=== PATIENT | female | born 1950 | race Caucasian/White ===

== ENCOUNTER → 2017-10-30 | Outpatient (CLI) | payer OTHER ==
[~2017-10-30] MED LIST: CALC500C70 PO; CHOL1000 PO; ESCI10TA17 PO; LORA-741 PO
--- NOTE | 2017-10-30 11:25 | DIAGNOSTIC IMAGING REPORT ---
CHEST 2 VIEWS ROUTINE CLINICAL HISTORY: 67 years-old Female presenting with preoperative assessment. TECHNIQUE: PA and lateral views of the chest were obtained. COMPARISON: 09/04/2008. FINDINGS: Cardiomediastinal silhouette normal. Mild hyperinflation. Lungs and pleural spaces clear. Osseous structures normal. Upper abdomen normal. IMPRESSION: 1. No acute cardiopulmonary disease. Electronically signed by: Gurmeet Paula M.D. 10/30/2017 11:24 AM Dictated Date/Time: 10/30/2017 11:23 AM
[2017-10-30 12:32] LABS: BASO % 0.3 %; BASO ABS # 0.01 K/uL (0-0.2); EOS % 1.3 %; EOS ABS # 0.05 K/uL (0-0.5); HEMATOCRIT 42.5 % (37-47); HEMOGLOBIN 13.6 g/dL (12.0-16.0); IG# 0.01 K/uL (0.00-0.02); LYMPH % 36.6 %; MEAN CELL VOLUME 89.9 fL (80-100); MEAN CORPUSCULAR HEMOGLOBIN 28.8 pg (25-34); MEAN PLATELET VOLUME 11.8 fL (7.4-10.4); MONO % 7.6 %; MONO ABS # 0.29 K/uL (0.11-0.59); NEUT % 53.9 %; NEUT ABS # 2.06 K/uL (1.4-6.5); PLATELET COUNT 186 K/uL (130-400); RED CELL DISTRIBUTION WIDTH CV 12.7 % (11.5-14.5); RED CELL DISTRIBUTION WIDTH SD 41.4 fL (36.4-46.3); WHITE BLOOD COUNT 3.82 K/uL (4.8-10.8)
[2017-10-30 12:46] LABS: HEMOGLOBIN A1C 5.7 % (4.5-5.6); INR 0.9 (0.9-1.1); PTT PATIENT 24.5 SECONDS (21.0-31.0)
[2017-10-30 12:56] LABS: ALBUMIN 3.7 gm/dl (3.4-5.0); BLOOD UREA NITROGEN 13 mg/dl (7-18); CALCIUM 9.1 mg/dl (8.5-10.1); CARBON DIOXIDE 29 mmol/L (21-32); GLUCOSE 89 mg/dl (70-99); SODIUM 139 mmol/L (136-145)
== END | disposition home or self-care (01) ==
LOC: C.CPL 12:00
DX: Z01.811 Encounter for preprocedural respiratory examination (principal); Z01.812 Encounter for preprocedural laboratory examination

== ENCOUNTER 2022-09-05 17:24 | Inpatient (IN) ==
[2022-09-05] MEDS ORDERED: SODIUM CHLORIDE 0.9% 1000ML 1,000 ML IV SCH ×2 (17:30→19:45)
--- NOTE | 2022-09-05 17:34 | Emergency Department Note ---
I had nothing to do with this note but have been added as a contributor by viewing it and now have to sign. Impression & Plan AMS (altered mental status) ADMIT ED Provider Note HPI: The patient is a 71-year-old female with history of anxiety/depression, who presents emergency department via EMS with altered mental status having been found down today in her home by her neighbor. Patient was reportedly last seen in her normal state of health 2 days ago. Neighbor became concerned because he had not heard from the patient and patient did not return phone calls and there fore he went to the house and found her unresponsive on the floor. EMS was contacted. Upon EMS arrival patient was responding to verbal stimuli but is unable to converse. She was noted to be hemodynamically stable in the field and protecting her airway. On arrival here to the ED the patient is with dry mucous membranes, she does respond to verbal stimuli but she is unable to have a conversation with me. She appears disheveled and is incontinent of urine with pressure ulcer noted to the sacrum. Patient is alert to verbal stimuli and is protecting her airway appropriately on my evaluation. ROS: - Per HPI Differential Diagnosis: Intracranial hemorrhage to include subarachnoid hemorrhage, intraparenchymal hemorrhage, hemorrhagic stroke, sepsis, rhabdomyolysis, acute kidney injury/dehydration, drug overdose to include benzodiazepines, opioids, prescription drugs to include SSRIs, amongst other potential pathologies. *Outpatient medications and allergy history reviewed. *Pertinent external medical records reviewed. PE: General: Alert to verbal stimuli, disheveled appearing HEENT: Normocephalic, trachea midline, dry mucous membrane Eyes: Extraocular eye movement is intact, no scleral erythema Pulmonary: Clear to auscultation bilaterally, no wheezing Cardio: Mildly tachycardic rate with regular rhythm GI: Abdomen is soft to palpation : No suprapubic tenderness MSK: No evidence of trauma or malformation of the extremities, no edema Skin: Erythema with some mild superficial skin peeling over the sacrum consistent with pressure ulcer Neuro: Alert to verbal stimuli, unable to converse/encephalopathic appearing, ambulates all extremities spontaneously Psychiatric: N/A, nonaggressive court monitor: (As interpreted by myself): - An order was placed for continuous cardiac monitoring - Patient was noted to be in sinus tachycardia with a rate of 110 EKG: (As interpreted by myself): Rate: 95 Rhythm: Normal sinus rhythm Intervals: Within normal limits ST changes: No ST elevation Time: 1729 Interventions provided in ED: -IV fluid bolus, IV vancomycin, IV Unasyn Medical Decision Making: Patient presented to the emergency department after having been found down at home today. She is in an altered/encephalopathic state on arrival. IVs were established and patient was taken to CT imaging urgently to evaluate for possible intracranial pathology. CT imaging of the head shows no acute process. Patient was IV fluid resuscitated with greater than 30 cc/kg of fluid and maintained on court monitor, presenting temperature is 34.0 C therefore placed also with warming blanket. Lab work shows no leukocytosis, hemoglobin is 17.2, platelet count is within normal limits, venous blood gas obtained shows evidence of acidosis with pH of 7.29, PCO2 is 65, CMP shows slight hyperkalemia at 5.3, BUN elevated at 37, creatinine is normal. Lactic acid is elevated at 4.3, magnesium slightly elevated at 2.8, bilirubin is normal, mild elevation in AST at 101 and ALT of 53, total CK level is elevated at 1848, procalcitonin also elevated at 1.77. Chest x-ray shows evidence of a possible right lower lobe aspiration pneumonia. Patient was covered with broad-spectrum antibiotics with vancomycin and Unasyn over concern for possible aspiration pneumonia. Urinalysis also shows concern for possible infection with pyuria and leukocyte esterase positive. Urine drug screen is positive for opioids and benzodiazepines. On my reassessment prior to admission the patient is becoming more alert, she is intermittently crying, she is able to nod her head yes or no to certain questions but cannot have a coherent conversation with me as of yet. Her who she is from later arrived at the bedside. States the patient has been "very depressed" recently. Given this I suspect that her altered mental status may be secondary to possible overdose. Per EMS report there was an empty bottle of paroxetine near the patient and a second bottle that was helpful. She has not displayed any arrhythmia on the monitor. Patient is stable currently on court monitor with stable blood pressure normal heart rate, she is saturating well on nasal cannula oxygen with respiratory rate in the 20s. She is more responsive than she was on arrival and she is maintaining protection of her airway without issue. I do not feel that i ntubation is warranted at this current time. I feel she is stable at this time for admission. Case was discussed with the on-call midlevel provider for [facility], Sandrine Kumar, and the patient was placed for admission in improved condition. Consultants: Hospitalist service, [facility] Disposition discussion held by myself with: Patient's at the bedside Diagnosis: 1. Altered mental status 2. Lactic acidosis 3. Rhabdomyolysis 4. Aspiration pneumonia 5. Hyperkalemia, mild 6. Uremia, acute 7. Possible drug overdose, benzodiazepine and opioid positive on urine drug screen 8. Elevated procalcitonin level 9. Sacral ulcer, superficial Disposition: ADMISSION Robb Duque DO Emergency Medicine Past Med/Surg History Medical History (Updated 09/05/22 @ 21:18 by HERSON Lee) Anxiety hx Arthritis of left hip Aspiration pneumonia Depression hx History of anesthesia reaction "I woke up during surgery and they had to put me back under" Mood disorder hx Overdose Sepsis Unresponsiveness Surgical History History of esophagogastroduodenoscopy (EGD) History of lumbar surgery lumbar #5, 1995 Hx of colonoscopy Hx of total hip arthroplasty Lt. Family History Other No significant family history Social History Smoking Status: Unknown if ever smoked Second Hand Exposure: No; Do You Dip or Chew Tobacco: No; Hx Alcohol Use: No Hx Substance Use: No Preferred Language: Georgian Communication Ability: Effective Visual Impairment: Limited Hearing Ability: Normal Press Service Reader Required: No Beliefs That Will Affect Care: None Current Living Situation: Alone Feels Safe at Home: Yes Assistive Devices: Glasses Allergies Allergies Allergy/AdvReac Type Severity Reaction Status Date / Time Quinolones Allergy Severe DIZZY Verified 09/26/21 06:25 ANXIETY TINGLING IN ARMS Home Meds Home Medications Medication Instructions Recorded Confirmed calcium 333 mg PO TID 09/03/21 09/26/21 cholecalciferol (vitamin D3) 50 50 mcg PO QAM 09/03/21 09/26/21 mcg (2,000 unit) tablet (Vitamin D3) paroxetine HCl 20 mg tablet 20 mg PO DAILY 09/05/22 09/05/22 Results & Data (ED) Vital Signs Vital Signs - 24 hr 09/05/22 17:30 09/05/22 17:30 09/05/22 17:30 Temperature 34.0 C L Temperature Source Rectal Pulse Rate 110 H Pulse Rate [Apical] 110 H Pulse Rate from SpO2 Sensor Pulse Rhythm Regular Pulse Rhythm [Apical] Regular Pulse Strength Normal Pulse Strength [Apical] Normal Respiratory Rate 30 H 32 H Respiratory Effort / Characteristics Labored Labored Respiratory Depth Normal Shallow Respiratory Pattern Tachypnea Tachypnea Blood Pressure 137/83 Blood Pressure [Right Arm] 137/83 Blood Pressure Mean 101 Blood Pressure Mean [Right Arm] 101 Blood Pressure Position [Right Arm] Pulse Oximetry 96 96 96 Oxygen Delivery Method Room Air Nasal Cannula Nasal Cannula Oxygen Flow Rate 4 4 Sepsis Recent Fever Within 48 Hours No Sepsis New/Unexplained Change in Mental Status Yes Sepsis Action Taken by Nursing Physician Notified End-Tidal CO2 09/05/22 17:35 09/05/22 17:35 09/05/22 17:59 Temperature Temperature Source Pulse Rate 100 H 102 H 102 H Pulse Rate [Apical] Pulse Rate from SpO2 Sensor 101 H 102 H Pulse Rhythm Pulse Rhythm [Apical] Pulse Strength Pulse Strength [Apical] Respiratory Rate 25 H 15 Respiratory Effort / Characteristics Respiratory Depth Respiratory Pattern Blood Pressure Blood Pressure [Right Arm] Blood Pressure Mean Blood Pressure Mean [Right Arm] Blood Pressure Position [Right Arm] Pulse Oximetry 96 100 Oxygen Delivery Method Nasal Cannula Nasal Cannula Oxygen Flow Rate 3 3 Sepsis Recent Fever Within 48 Hours Sepsis New/Unexplained Change in Mental Status Sepsis Action Taken by Nursing End-Tidal CO2 09/05/22 18:00 09/05/22 18:04 09/05/22 18:04 Temperature Temperature Source Pulse Rate 94 H 89 Pulse Rate [Apical] Pulse Rate from SpO2 Sensor 93 H 91 H Pulse Rhythm Pulse Rhythm [Apical] Pulse Strength Pulse Strength [Apical] Respiratory Rate 16 23 Respiratory Effort / Characteristics Respiratory Depth Respiratory Pattern Blood Pressure 130/77 Blood Pressure [Right Arm] Blood Pressure Mean 94 Blood Pressure Mean [Right Arm] Blood Pressure Position [Right Arm] Pulse Oximetry 98 98 Oxygen Delivery Method Oxygen Flow Rate 3 Sepsis Recent Fever Within 48 Hours Sepsis New/Unexplained Change in Mental Status Sepsis Action Taken by Nursing End-Tidal CO2 09/05/22 18:10 09/05/22 18:20 09/05/22 18:30 Temperature Temperature Source Pulse Rate 90 81 Pulse Rate [Apical] Pulse Rate from SpO2 Sensor 90 81 Pulse Rhythm Pulse Rhythm [Apical] Pulse Strength Pulse Strength [Apical] Respiratory Rate 16 12 Respiratory Effort / Characteristics Respiratory Depth Respiratory Pattern Blood Pressure 141/96 H Blood Pressure [Right Arm] Blood Pressure Mean 111 Blood Pressure Mean [Right Arm] Blood Pressure Position [Right Arm] Pulse Oximetry 97 97 Oxygen Delivery Method Oxygen Flow Rate Sepsis Recent Fever Within 48 Hours Sepsis New/Unexplained Change in Mental Status Sepsis Action Taken by Nursing End-Tidal CO2 09/05/22 18:30 09/05/22 18:57 09/05/22 19:00 Temperature 36.7 C Temperature Source Rectal Pulse Rate 94 H Pulse Rate [Apical] 102 H Pulse Rate from SpO2 Sensor 94 H Pulse Rhythm Pulse Rhythm [Apical] Pulse Strength Pulse Strength [Apical] Respiratory Rate 19 26 H Respiratory Effort / Characteristics Non-Labored Spontaneous Respiratory Depth Normal Respiratory Pattern Blood Pressure Blood Pressure [Right Arm] 141/96 H Blood Pressure Mean Blood Pressure Mean [Right Arm] 111 Blood Pressure Position [Right Arm] Sitting Pulse Oximetry 98 100 Oxygen Delivery Method Nasal Cannula Oxygen Flow Rate 3 Sepsis Recent Fever Within 48 Hours Sepsis New/Unexplained Change in Mental Status Sepsis Action Taken by Nursing End-Tidal CO2 09/05/22 20:10 09/05/22 19:00 09/05/22 19:10 Temperature Temperature Source Pulse Rate 103 H 94 H Pulse Rate [Apical] 78 Pulse Rate from SpO2 Sensor 103 H 94 H Pulse Rhythm Pulse Rhythm [Apical] Pulse Strength Pulse Strength [Apical] Respiratory Rate 14 22 34 H Respiratory Effort / Characteristics Non-Labored Spontaneous Respiratory Depth Shallow Respiratory Pattern Blood Pressure 133/96 133/96 Blood Pressure [Right Arm] 139/88 Blood Pressure Mean 108 108 Blood Pressure Mean [Right Arm] 105 Blood Pressure Position [Right Arm] Pulse Oximetry 99 100 99 Oxygen Delivery Method Nasal Cannula Nasal Cannula Oxygen Flow Rate 3 3 Sepsis Recent Fever Within 48 Hours Sepsis New/Unexplained Change in Mental Status Sepsis Action Taken by Nursing End-Tidal CO2 09/05/22 19:20 09/05/22 19:30 09/05/22 20:00 Temperature Temperature Source Pulse Rate 91 H 91 H 82 Pulse Rate [Apical] Pulse Rate from SpO2 Sensor 91 H 90 82 Pulse Rhythm Pulse Rhythm [Apical] Pulse Strength Pulse Strength [Apical] Respiratory Rate 26 H 19 21 Respiratory Effort / Characteristics Respiratory Depth Respiratory Pattern Blood Pressure 143/97 H 139/88 Blood Pressure [Right Arm] Blood Pressure Mean 112 105 Blood Pressure Mean [Right Arm] Blood Pressure Position [Right Arm] Pulse Oximetry 98 99 99 Oxygen Delivery Method Nasal Cannula Nasal Cannula Nasal Cannula Oxygen Flow Rate 3 3 3 Sepsis Recent Fever Within 48 Hours Sepsis New/Unexplained Change in Mental Status Sepsis Action Taken by Nursing End-Tidal CO2 09/05/22 20:36 09/05/22 20:30 09/05/22 21:15 Temperature Temperature Source Pulse Rate 111 H Pulse Rate [Apical] 96 H 99 H Pulse Rate from SpO2 Sensor 112 H Pulse Rhythm Pulse Rhythm [Apical] Regular Pulse Strength Pulse Strength [Apical] Normal Respiratory Rate 23 21 22 Respiratory Effort / Characteristics Non-Labored Spontaneous Non-Labored Spontaneous Respiratory Depth Shallow Shallow Respiratory Pattern Blood Pressure 170/98 H Blood Pressure [Right Arm] 170/98 H 167/104 H Blood Pressure Mean 122 Blood Pressure Mean [Right Arm] 122 125 Blood Pressure Position [Right Arm] Lying Pulse Oximetry 99 99 95 Oxygen Delivery Method Nasal Cannula Nasal Cannula Room Air Oxygen Flow Rate 3 3 Sepsis Recent Fever Within 48 Hours Sepsis New/Unexplained Change in Mental Status Sepsis Action Taken by Nursing End-Tidal CO2 09/05/22 21:19 09/05/22 21:00 09/05/22 21:10 Temperature Temperature Source Pulse Rate 91 H 107 H 107 H Pulse Rate [Apical] Pulse Rate from SpO2 Sensor 107 H 108 H Pulse Rhythm Pulse Rhythm [Apical] Pulse Strength Pulse Strength [Apical] Respiratory Rate 21 18 18 Respiratory Effort / Characteristics Respiratory Depth Respiratory Pattern Blood Pressure 144/124 H 167/104 H Blood Pressure [Right Arm] Blood Pressure Mean 130 125 Blood Pressure Mean [Right Arm] Blood Pressure Position [Right Arm] Pulse Oximetry 95 97 95 Oxygen Delivery Method Room Air Nasal Cannula Room Air Oxygen Flow Rate 3 Sepsis Recent Fever Within 48 Hours Sepsis New/Unexplained Change in Mental Status Sepsis Action Taken by Nursing End-Tidal CO2 31 Laboratory Data 09/05/22 17:28 09/05/22 17:28 Lab Results 09/05/22 09/05/22 09/05/22 Range/Units 17:28 17:28 17:28 WBC 10.44 (4.8-10.8) K/ul RBC 5.75 H (4.20-5.40) M/uL Hgb 17.2 H (12.0-16.0) g/dl Hct 52.0 H (37.0-47.0) % MCV 90.4 (80.0-100.0) fL MCH 29.9 (25.0-34.0) pg MCHC 33.1 (32.0-36.0) g/dL RDW Std Deviation 40.3 (36.4-46.3) fL RDW Coeff of Mary 12.3 (11.5-14.5) % Plt Count 168 (130-400) K/uL MPV 11.3 (9.4-12.4) fL Immature Gran % (Auto) 0.5 % Neut % (Auto) 89.3 % Lymph % (Auto) 3.9 % Alexander % (Auto) 6.0 % Eos % (Auto) 0.0 % Baso % (Auto) 0.3 % Neut # (Auto) 9.32 H (1.40-6.50) K/uL Lymph # (Auto) 0.41 L (1.2-3.4) K/uL Alexander # (Auto) 0.63 H (0.11-0.59) K/uL Eos # (Auto) 0.00 (0-0.50) K/uL Baso # (Auto) 0.03 (0-0.2) K/uL Immature Gran # (Auto) 0.05 (0.01-0.20) K/uL PT 11.3 (9.0-12.0) Seconds INR 1.0 (0.9-1.1) VBG pH (7.36-7.41) VBG pCO2 (38-50) mmHg VBG pO2 mmHg VBG HCO3 mmol/L VBG O2 Saturation % VBG Base Excess mEq/L Sodium 141 (136-145) mmol/L Potassium 5.3 H (3.5-5.1) mmol/L Chloride 101 (98-107) mmol/L Carbon Dioxide 32 (21-32) mmol/L Anion Gap 8 (3-11) BUN 37 H (6-23) mg/dl Creatinine 0.75 (0.6-1.2) mg/dl Est Cr Clr Drug Dosing 55.6 ml/min Est GFR ( Amer) 92.9 ml/min Est GFR (Non-Af Amer) 80.2 ml/min BUN/Creatinine Ratio 49.3 H (10-20) Glucose 162 H (70-99(Fasting)) mg/dl Lactate (0.4-2.0) mmol/L Calcium 10.3 (8.6-10.3) mg/dl Magnesium 2.8 H (1.7-2.4) mg/dl Total Bilirubin 0.7 (0.2-1.0) mg/dl Direct Bilirubin 0.1 (0-0.2) mg/dl AST 101 H (13-39) U/L ALT 53 H (7-52) U/L Alkaline Phosphatase 66 (34-104) U/L Total Creatine Kinase (26-192) U/L Troponin I High Sens 11.5 (0-14) pg/ml Total Protein 8.1 (6.0-8.3) gm/dl Albumin 4.4 (3.4-5.0) gm/dl Procalcitonin (0-0.5) ng/ml Urine Color Urine Appearance (Clear) Urine pH (4.5-7.5) Ur Specific [place] (1.000-1.030) Urine Protein (Negative) Urine Glucose (UA) (Negative) Urine Ketones (Negative) Urine Blood (Negative) Urine Nitrite (Negative) Urine Bilirubin (Negative) Urine Urobilinogen (Negative) Ur Leukocyte Esterase (Negative) Urine WBC (Auto) (0-5) /hpf Urine RBC (Auto) (0-4) /hpf U Hyaline Cast (Auto) (0-5) /lpf U Epithel Cells (Auto) (0-5) /lpf Urine Bacteria (Auto) (Negative) Salicylates (3.0-30) mg/dl Urine Opiates Screen (Neg) Ur Methadone, Qual (Neg) Acetaminophen (10-30) ug/ml Urine Barbiturates (Neg) Ur Phencyclidine (PCP) (Neg) U Amphetamin/Meth Scrn (Neg) MDMA (Ecstasy) Screen (Neg) U Benzodiazepines Scrn (Neg) Ur Cocaine Metabolite (Neg) U Marijuana (THC) Screen (Neg) Ethyl Alcohol mg/dL (<10.0) mg/dl SARS-CoV-2 (PCR) (Negative) Influenza Type A (PCR) (Neg) Influenza Type B (PCR) (Neg) RSV (RT-PCR) (Neg) 09/05/22 09/05/22 09/05/22 Range/Units 17:28 17:28 17:39 WBC (4.8-10.8) K/ul RBC (4.20-5.40) M/uL Hgb (12.0-16.0) g/dl Hct (37.0-47.0) % MCV (80.0-100.0) fL MCH (25.0-34.0) pg MCHC (32.0-36.0) g/dL RDW Std Deviation (36.4-46.3) fL RDW Coeff of Mary (11.5-14.5) % Plt Count (130-400) K/uL MPV (9.4-12.4) fL Immature Gran % (Auto) % Neut % (Auto) % Lymph % (Auto) % Alexander % (Auto) % Eos % (Auto) % Baso % (Auto) % Neut # (Auto) (1.40-6.50) K/uL Lymph # (Auto) (1.2-3.4) K/uL Alexander # (Auto) (0.11-0.59) K/uL Eos # (Auto) (0-0.50) K/uL Baso # (Auto) (0-0.2) K/uL Immature Gran # (Auto) (0.01-0.20) K/uL PT (9.0-12.0) Seconds INR (0.9-1.1) VBG pH (7.36-7.41) VBG pCO2 (38-50) mmHg VBG pO2 mmHg VBG HCO3 mmol/L VBG O2 Saturation % VBG Base Excess mEq/L Sodium (136-145) mmol/L Potassium (3.5-5.1) mmol/L Chloride (98-107) mmol/L Carbon Dioxide (21-32) mmol/L Anion Gap (3-11) BUN (6-23) mg/dl Creatinine (0.6-1.2) mg/dl Est Cr Clr Drug Dosing ml/min Est GFR ( Amer) ml/min Est GFR (Non-Af Amer) ml/min BUN/Creatinine Ratio (10-20) Glucose (70-99(Fasting)) mg/dl Lactate (0.4-2.0) mmol/L Calcium (8.6-10.3) mg/dl Magnesium (1.7-2.4) mg/dl Total Bilirubin (0.2-1.0) mg/dl Direct Bilirubin (0-0.2) mg/dl AST (13-39) U/L ALT (7-52) U/L Alkaline Phosphatase (34-104) U/L Total Creatine Kinase (26-192) U/L Troponin I High Sens (0-14) pg/ml Total Protein (6.0-8.3) gm/dl Albumin (3.4-5.0) gm/dl Procalcitonin 1.77 H (0-0.5) ng/ml Urine Color Dark Yellow Urine Appearance Cloudy A (Clear) Urine pH 5.5 (4.5-7.5) Ur Specific [place] 1.026 (1.000-1.030) Urine Protein 2+ H (Negative) Urine Glucose (UA) Trace H (Negative) Urine Ketones 1+ H (Negative) Urine Blood 3+ H (Negative) Urine Nitrite Negative (Negative) Urine Bilirubin Negative (Negative) Urine Urobilinogen Negative (Negative) Ur Leukocyte Esterase 1+ H (Negative) Urine WBC (Auto) >30 H (0-5) /hpf Urine RBC (Auto) 0-4 (0-4) /hpf U Hyaline Cast (Auto) 0 (0-5) /lpf U Epithel Cells (Auto) 0-5 (0-5) /lpf Urine Bacteria (Auto) 4+ H (Negative) Salicylates < 3.0 L (3.0-30) mg/dl Urine Opiates Screen (Neg) Ur Methadone, Qual (Neg) Acetaminophen < 3 L (10-30) ug/ml Urine Barbiturates (Neg) Ur Phencyclidine (PCP) (Neg) U Amphetamin/Meth Scrn (Neg) MDMA (Ecstasy) Screen (Neg) U Benzodiazepines Scrn (Neg) Ur Cocaine Metabolite (Neg) U Marijuana (THC) Screen (Neg) Ethyl Alcohol mg/dL (<10.0) mg/dl SARS-CoV-2 (PCR) (Negative) Influenza Type A (PCR) (Neg) Influenza Type B (PCR) (Neg) RSV (RT-PCR) (Neg) 09/05/22 09/05/22 09/05/22 Range/Units 17:39 18:06 18:17 WBC (4.8-10.8) K/ul RBC (4.20-5.40) M/uL Hgb (12.0-16.0) g/dl Hct (37.0-47.0) % MCV (80.0-100.0) fL MCH (25.0-34.0) pg MCHC (32.0-36.0) g/dL RDW Std Deviation (36.4-46.3) fL RDW Coeff of Mary (11.5-14.5) % Plt Count (130-400) K/uL MPV (9.4-12.4) fL Immature Gran % (Auto) % Neut % (Auto) % Lymph % (Auto) % Alexander % (Auto) % Eos % (Auto) % Baso % (Auto) % Neut # (Auto) (1.40-6.50) K/uL Lymph # (Auto) (1.2-3.4) K/uL Alexander # (Auto) (0.11-0.59) K/uL Eos # (Auto) (0-0.50) K/uL Baso # (Auto) (0-0.2) K/uL Immature Gran # (Auto) (0.01-0.20) K/uL PT (9.0-12.0) Seconds INR (0.9-1.1) VBG pH (7.36-7.41) VBG pCO2 (38-50) mmHg VBG pO2 mmHg VBG HCO3 mmol/L VBG O2 Saturation % VBG Base Excess mEq/L Sodium (136-145) mmol/L Potassium (3.5-5.1) mmol/L Chloride (98-107) mmol/L Carbon Dioxide (21-32) mmol/L Anion Gap (3-11) BUN (6-23) mg/dl Creatinine (0.6-1.2) mg/dl Est Cr Clr Drug Dosing ml/min Est GFR ( Amer) ml/min Est GFR (Non-Af Amer) ml/min BUN/Creatinine Ratio (10-20) Glucose (70-99(Fasting)) mg/dl Lactate 4.3 H* (0.4-2.0) mmol/L Calcium (8.6-10.3) mg/dl Magnesium (1.7-2.4) mg/dl Total Bilirubin (0.2-1.0) mg/dl Direct Bilirubin (0-0.2) mg/dl AST (13-39) U/L ALT (7-52) U/L Alkaline Phosphatase (34-104) U/L Total Creatine Kinase (26-192) U/L Troponin I High Sens (0-14) pg/ml Total Protein (6.0-8.3) gm/dl Albumin (3.4-5.0) gm/dl Procalcitonin (0-0.5) ng/ml Urine Color Urine Appearance (Clear) Urine pH (4.5-7.5) Ur Specific [place] (1.000-1.030) Urine Protein (Negative) Urine Glucose (UA) (Negative) Urine Ketones (Negative) Urine Blood (Negative) Urine Nitrite (Negative) Urine Bilirubin (Negative) Urine Urobilinogen (Negative) Ur Leukocyte Esterase (Negative) Urine WBC (Auto) (0-5) /hpf Urine RBC (Auto) (0-4) /hpf U Hyaline Cast (Auto) (0-5) /lpf U Epithel Cells (Auto) (0-5) /lpf Urine Bacteria (Auto) (Negative) Salicylates (3.0-30) mg/dl Urine Opiates Screen Pos H (Neg) Ur Methadone, Qual Neg (Neg) Acetaminophen (10-30) ug/ml Urine Barbiturates Neg (Neg) Ur Phencyclidine (PCP) Neg (Neg) U Amphetamin/Meth Scrn Neg (Neg) MDMA (Ecstasy) Screen Neg (Neg) U Benzodiazepines Scrn Pos H (Neg) Ur Cocaine Metabolite Neg (Neg) U Marijuana (THC) Screen Neg (Neg) Ethyl Alcohol mg/dL (<10.0) mg/dl SARS-CoV-2 (PCR) NEGATIVE (Negative) Influenza Type A (PCR) Negative (Neg) Influenza Type B (PCR) Negative (Neg) RSV (RT-PCR) Negative (Neg) 09/05/22 09/05/22 09/05/22 Range/Units 18:17 18:17 18:17 WBC (4.8-10.8) K/ul RBC (4.20-5.40) M/uL Hgb (12.0-16.0) g/dl Hct (37.0-47.0) % MCV (80.0-100.0) fL MCH (25.0-34.0) pg MCHC (32.0-36.0) g/dL RDW Std Deviation (36.4-46.3) fL RDW Coeff of Mary (11.5-14.5) % Plt Count (130-400) K/uL MPV (9.4-12.4) fL Immature Gran % (Auto) % Neut % (Auto) % Lymph % (Auto) % Alexander % (Auto) % Eos % (Auto) % Baso % (Auto) % Neut # (Auto) (1.40-6.50) K/uL Lymph # (Auto) (1.2-3.4) K/uL Alexander # (Auto) (0.11-0.59) K/uL Eos # (Auto) (0-0.50) K/uL Baso # (Auto) (0-0.2) K/uL Immature Gran # (Auto) (0.01-0.20) K/uL PT (9.0-12.0) Seconds INR (0.9-1.1) VBG pH 7.29 L (7.36-7.41) VBG pCO2 65 H (38-50) mmHg VBG pO2 38 mmHg VBG HCO3 31 mmol/L VBG O2 Saturation 63.5 % VBG Base Excess 2.8 mEq/L Sodium (136-145) mmol/L Potassium (3.5-5.1) mmol/L Chloride (98-107) mmol/L Carbon Dioxide (21-32) mmol/L Anion Gap (3-11) BUN (6-23) mg/dl Creatinine (0.6-1.2) mg/dl Est Cr Clr Drug Dosing ml/min Est GFR ( Amer) ml/min Est GFR (Non-Af Amer) ml/min BUN/Creatinine Ratio (10-20) Glucose (70-99(Fasting)) mg/dl Lactate (0.4-2.0) mmol/L Calcium (8.6-10.3) mg/dl Magnesium (1.7-2.4) mg/dl Total Bilirubin (0.2-1.0) mg/dl Direct Bilirubin (0-0.2) mg/dl AST (13-39) U/L ALT (7-52) U/L Alkaline Phosphatase (34-104) U/L Total Creatine Kinase 1848 H (26-192) U/L Troponin I High Sens (0-14) pg/ml Total Protein (6.0-8.3) gm/dl Albumin (3.4-5.0) gm/dl Procalcitonin (0-0.5) ng/ml Urine Color Urine Appearance (Clear) Urine pH (4.5-7.5) Ur Specific [place] (1.000-1.030) Urine Protein (Negative) Urine Glucose (UA) (Negative) Urine Ketones (Negative) Urine Blood (Negative) Urine Nitrite (Negative) Urine Bilirubin (Negative) Urine Urobilinogen (Negative) Ur Leukocyte Esterase (Negative) Urine WBC (Auto) (0-5) /hpf Urine RBC (Auto) (0-4) /hpf U Hyaline Cast (Auto) (0-5) /lpf U Epithel Cells (Auto) (0-5) /lpf Urine Bacteria (Auto) (Negative) Salicylates (3.0-30) mg/dl Urine Opiates Screen (Neg) Ur Methadone, Qual (Neg) Acetaminophen (10-30) ug/ml Urine Barbiturates (Neg) Ur Phencyclidine (PCP) (Neg) U Amphetamin/Meth Scrn (Neg) MDMA (Ecstasy) Screen (Neg) U Benzodiazepines Scrn (Neg) Ur Cocaine Metabolite (Neg) U Marijuana (THC) Screen (Neg) Ethyl Alcohol mg/dL < 10.0 (<10.0) mg/dl SARS-CoV-2 (PCR) (Negative) Influenza Type A (PCR) (Neg) Influenza Type B (PCR) (Neg) RSV (RT-PCR) (Neg) 09/05/22 09/05/22 09/05/22 Range/Units 20:20 21:11 21:11 WBC (4.8-10.8) K/ul RBC (4.20-5.40) M/uL Hgb (12.0-16.0) g/dl Hct (37.0-47.0) % MCV (80.0-100.0) fL MCH (25.0-34.0) pg MCHC (32.0-36.0) g/dL RDW Std Deviation (36.4-46.3) fL RDW Coeff of Mary (11.5-14.5) % Plt Count (130-400) K/uL MPV (9.4-12.4) fL Immature Gran % (Auto) % Neut % (Auto) % Lymph % (Auto) % Alexander % (Auto) % Eos % (Auto) % Baso % (Auto) % Neut # (Auto) (1.40-6.50) K/uL Lymph # (Auto) (1.2-3.4) K/uL Alexander # (Auto) (0.11-0.59) K/uL Eos # (Auto) (0-0.50) K/uL Baso # (Auto) (0-0.2) K/uL Immature Gran # (Auto) (0.01-0.20) K/uL PT (9.0-12.0) Seconds INR (0.9-1.1) VBG pH 7.34 L (7.36-7.41) VBG pCO2 52 H (38-50) mmHg VBG pO2 29 mmHg VBG HCO3 28 mmol/L VBG O2 Saturation 62.6 % VBG Base Excess 1.4 mEq/L Sodium (136-145) mmol/L Potassium (3.5-5.1) mmol/L Chloride (98-107) mmol/L Carbon Dioxide (21-32) mmol/L Anion Gap (3-11) BUN (6-23) mg/dl Creatinine (0.6-1.2) mg/dl Est Cr Clr Drug Dosing ml/min Est GFR ( Amer) ml/min Est GFR (Non-Af Amer) ml/min BUN/Creatinine Ratio (10-20) Glucose (70-99(Fasting)) mg/dl Lactate 3.4 H* 2.3 H* (0.4-2.0) mmol/L Calcium (8.6-10.3) mg/dl Magnesium (1.7-2.4) mg/dl Total Bilirubin (0.2-1.0) mg/dl Direct Bilirubin (0-0.2) mg/dl AST (13-39) U/L ALT (7-52) U/L Alkaline Phosphatase (34-104) U/L Total Creatine Kinase (26-192) U/L Troponin I High Sens (0-14) pg/ml Total Protein (6.0-8.3) gm/dl Albumin (3.4-5.0) gm/dl Procalcitonin (0-0.5) ng/ml Urine Color Urine Appearance (Clear) Urine pH (4.5-7.5) Ur Specific [place] (1.000-1.030) Urine Protein (Negative) Urine Glucose (UA) (Negative) Urine Ketones (Negative) Urine Blood (Negative) Urine Nitrite (Negative) Urine Bilirubin (Negative) Urine Urobilinogen (Negative) Ur Leukocyte Esterase (Negative) Urine WBC (Auto) (0-5) /hpf Urine RBC (Auto) (0-4) /hpf U Hyaline Cast (Auto) (0-5) /lpf U Epithel Cells (Auto) (0-5) /lpf Urine Bacteria (Auto) (Negative) Salicylates (3.0-30) mg/dl Urine Opiates Screen (Neg) Ur Methadone, Qual (Neg) Acetaminophen (10-30) ug/ml Urine Barbiturates (Neg) Ur Phencyclidine (PCP) (Neg) U Amphetamin/Meth Scrn (Neg) MDMA (Ecstasy) Screen (Neg) U Benzodiazepines Scrn (Neg) Ur Cocaine Metabolite (Neg) U Marijuana (THC) Screen (Neg) Ethyl Alcohol mg/dL (<10.0) mg/dl SARS-CoV-2 (PCR) (Negative) Influenza Type A (PCR) (Neg) Influenza Type B (PCR) (Neg) RSV (RT-PCR) (Neg) Administered Medications Sodium Chloride (Nss 1000ml) 1,000 mls @ 50 mls/hr IV .Q20H ERMIAS Stop: 09/07/22 11:44 Last Admin: 09/05/22 20:41 Dose: 50 mls/hr Documented By: JE Discontinued Medications Sodium Chloride (Nss 1000ml) 1,000 mls @ 999 mls/hr IV .Q1H1M ERMIAS Stop: 09/05/22 18:30 Last Infusion: 09/05/22 18:31 Dose: 0 mls/hr Documented By: DLTyler Admin: 09/05/22 17:48 Dose: 999 mls/hr Documented By: RSL Vancomycin HCl 1,000 mg/ (Sodium Chloride) 520 mls @ 200 mls/hr IV NOW ONE Stop: 09/05/22 20:28 Last Admin: 09/05/22 18:37 Dose: 200 mls/hr Documented By: [place] Ampicillin Sodium/Sulbactam Sodium 3,000 mg/ Sodium Chloride 108 mls @ 200 mls/hr IV NOW STA; Protocol Stop: 09/05/22 18:25 Last Infusion: 09/05/22 18:31 Dose: 0 mls/hr Documented By: Admin: 09/05/22 18:19 Dose: 200 mls/hr Documented By: [place] Sodium Chloride (Nss 1000ml) 1,000 mls @ 999 mls/hr IV .Q1H1M ONE Stop: 09/05/22 18:54 Last Infusion: 09/05/22 20:40 Dose: 0 mls/hr Documented By: Admin: 09/05/22 18:07 Dose: 999 mls/hr Documented By: [place] Naloxone HCl (Naloxone Hcl 0.4 Mg/1 Ml Vial/Carp) Confirm Administered Dose 0.4 mg .ROUTE .STK-MED ONE Stop: 09/05/22 18:29 Last Admin: 09/05/22 18:31 Dose: Not Given Documented By: [place] Naloxone HCl (Naloxone Hcl 0.4 Mg/1 Ml Vial/Carp) 0.4 mg IV NOW STA Stop: 09/05/22 18:29 Last Admin: 09/05/22 18:30 Dose: 0.4 mg Documented By: [place] Naloxone HCl (Naloxone Hcl 0.4 Mg/1 Ml Vial/Carp) 0.4 mg IV NOW STA Stop: 09/05/22 20:19 Last Admin: 09/05/22 20:23 Dose: 0.4 mg Documented By: KARLA Imaging Data Radiologist's Impression: Chest X-Ray 09/05/22 17:30 SINGLE VIEW CHEST CLINICAL HISTORY: Sepsis. FINDINGS: An AP, portable, upright chest radiograph is compared to study dated 817. The cardiomediastinal silhouette is unremarkable noting atherosclerotic calcification of the thoracic aorta. Airspace consolidation is seen at the right lung base. No large pleural effusion or pneumothorax is identified. The skeletal structures are osteopenic. The bony thorax is grossly intact. IMPRESSION: Airspace consolidation at the right lung base is typical for pneumonia/aspiration pneumonitis. Clinical correlation will be required and radiographic follow-up to resolution is recommended. ACT 112: Negative or not required by law. Electronically signed by: Kingsley Cabral M.D. 09/05/2022 5:[address] 09/05/22 17:31 CT SCAN OF THE BRAIN WITHOUT IV CONTRAST CLINICAL HISTORY: Change in mental status. COMPARISON STUDY: CT of the brain dated 09/04/2008. TECHNIQUE: Unenhanced axial CT scan of the brain is performed from the vertex to the skull base. A dose lowering technique was utilized adhering to the principles of ALARA. CT DOSE: 703.85 mGy.cm FINDINGS: Brain parenchyma: There is age-related involutional change noting mild subcor tical and periventricular microangiopathic disease. There is no hemorrhage, mass effect, or evidence of acute territorial ischemia by CT criteria. Palafox-white matter differentiation is preserved. No extra-axial fluid collection is seen. Ventricles, sulci, cisterns: Prominent secondary to involutional change. Intracranial vasculature: There is atherosclerotic calcification of the cavernous carotid arteries. Calvarium: Unremarkable. Sinuses and mastoids: The visualized paranasal sinuses are clear. The mastoid air cells are well pneumatized. Orbits: The bony orbits are grossly intact. There is a left ocular lens implant. IMPRESSION: There is no hemorrhage, mass effect, or evidence of acute territorial ischemia by CT criteria. ACT 112: Negative or not required by law. Electronically signed by: Kingsley Cabral M.D. 09/05/2022 6:00 PM Discharge Plan Visit Data Chief Complaint: Unresponsive Stated Complaint: UNRESPONSIVE ED Provider: Robb Duque Discharge Problem: AMS (altered mental status) Forms [facility] Prescriptions Prescriptions: No Action paroxetine HCl 20 mg tablet 20 mg PO DAILY Rx Instructions: [facility] pharmacist verified cholecalciferol (vitamin D3) [Vitamin D3] 50 mcg (2,000 unit) Tablet 50 mcg PO QAM Rx Instructions: [facility] pharmacist unable to verify calcium 333 mg PO TID Rx Instructions: [facility] pharmacist unable to verify Referrals Referrals: Abad Thomas MD [Primary Care Provider] -
--- NOTE | 2022-09-05 17:44 | XRay Report ---
SINGLE VIEW CHEST CLINICAL HISTORY: Sepsis. FINDINGS: An AP, portable, upright chest radiograph is compared to study dated 817. The cardiomediast inal silhouette is unremarkable noting atherosclerotic calcification of the thoracic aorta. Airspace consolidation is seen at the right lung base. No large pleural effusion or pneumothorax is identified . The skeletal structures are osteopenic. The bony thorax is grossly intact. IMPRESSION: Airspace consolidation at the right lung base is typical for pneumonia/aspiration pneumon itis. Clinical correlation will be required and radiographic follow-up to resolution is recommended. ACT 112: Negative or not required by law. Electronically signed by: Kingsley Cabral M.D. 09/05/2022 5:43 PM
[2022-09-05] MEDS ORDERED: VANCOMYCIN CONSULT ACTIVE PRN (17:53)
[2022-09-05] MEDS ORDERED: AMPICILLIN/SULBACTAM SOD 3,000 MG in 0.9 % SODIUM CHLORIDE 100 ML IV STA (17:53)
[2022-09-05] MEDS ORDERED: VANCOMYCIN HCL 1,000 MG in SODIUM CHLORIDE 0.9% 500 ML IV ONE (17:53)
[2022-09-05] MEDS ORDERED: SODIUM CHLORIDE 0.9% 1000ML 1,000 ML IV ONE (17:54)
--- NOTE | 2022-09-05 18:02 | CT Scan Report ---
CT SCAN OF THE BRAIN WITHOUT IV CONTRAST CLINICAL HISTORY: Change in mental status. COMPARISON STUDY: CT of the brain dated 09/04/2008. TECHNIQUE: Unenhanced axial CT scan of the brain is performed from the vertex to the skull base. A do se lowering technique was utilized adhering to the principles of ALARA. CT DOSE: 703.85 mGy.cm FINDINGS: Brain parenchyma: There is age-related involutional change noting mild subcortical and periventricula r microangiopathic disease. There is no hemorrhage, mass effect, or evidence of acute territorial isc hemia by CT criteria. Palafox-white matter differentiation is preserved. No extra-axial fluid collection is seen. Ventricles, sulci, cisterns: Prominent secondary to involutional change. Intracranial vasculature: There is atherosclerotic calcification of the cavernous carotid arteries. Calvarium: Unremarkable. Sinuses and mastoids: The visualized paranasal sinuses are clear. The mastoid air cells are well pneu matized. Orbits: The bony orbits are grossly intact. There is a left ocular lens implant. IMPRESSION: There is no hemorrhage, mass effect, or evidence of acute territorial ischemia by CT romy graf. ACT 112: Negative or not required by law. Electronically signed by: Kingsley Cabral M.D. 09/05/2022 6:00 PM
[2022-09-05 18:04] LABS: Basophils # (auto) 0.03 K/uL (0-0.2); Basophils % (auto) 0.3 %; Hemoglobin 17.2 g/dl (12.0-16.0); Immature Granulocytes # (auto) 0.05 K/uL (0.01-0.20); Immature Granulocytes % (auto) 0.5 %; Lymphocytes # (auto) 0.41 K/uL (1.2-3.4); Lymphocytes % (auto) 3.9 %; Mean Corpuscular Hemoglobin 29.9 pg (25.0-34.0); Mean Corpuscular Hgb Conc 33.1 g/dL (32.0-36.0); Mean Corpuscular Volume 90.4 fL (80.0-100.0); Mean Platelet Volume 11.3 fL (9.4-12.4); Monocytes # (auto) 0.63 K/uL (0.11-0.59); Neutrophils # (auto) 9.32 K/uL (1.40-6.50); Neutrophils % (auto) 89.3 %; Platelet Count 168 K/uL (130-400); RDW Coefficient of Variation 12.3 % (11.5-14.5); RDW Standard Deviation 40.3 fL (36.4-46.3); Red Blood Count 5.75 M/uL (4.20-5.40); White Blood Count 10.44 K/ul (4.8-10.8)
[2022-09-05 18:06] LABS: Appearance Urine Cloudy (Clear); Bacteria Urine Automated 4+ (Negative); Bilirubin Urine Negative (Negative); Blood Urine 3+ (Negative); Color Urine Dark Yellow; Epithelial Cell Urine Auto 0-5 /lpf (0-5); Glucose Urine UA Trace (Negative); Ketones Urine 1+ (Negative); Leukocyte Esterase Urine 1+ (Negative); Nitrite Urine Negative (Negative); Protein Urine 2+ (Negative); RBC Urine Automated 0-4 /hpf (0-4); Specific Gravity Urine 1.026 (1.000-1.030); Urobilinogen Urine Negative (Negative); WBC Urine Automated >30 /hpf (0-5); pH Urine 5.5 (4.5-7.5)
[2022-09-05 18:12] LABS: Albumin Level 4.4 gm/dl (3.4-5.0); BUN Creatinine Ratio 49.3 (10-20); Bilirubin Direct 0.1 mg/dl (0-0.2); Bilirubin,Total 0.7 mg/dl (0.2-1.0); Calcium 10.3 mg/dl (8.6-10.3); Creatinine Clr Calc Pharmacy 55.6 ml/min; Est GFR (African American) 92.9 ml/min; Est GFR (Non-African American) 80.2 ml/min; Magnesium 2.8 mg/dl (1.7-2.4); Potassium 5.3 mmol/L (3.5-5.1); Total Protein 8.1 gm/dl (6.0-8.3)
[2022-09-05 18:15] LABS: Acetaminophen < 3 ug/ml (10-30); Salicylate < 3.0 mg/dl (3.0-30)
[2022-09-05 18:19] LABS: Troponin I High Sensitivity 11.5 pg/ml (0-14)
[2022-09-05] MEDS ORDERED: NALOXONE HCL 0.4 MG/1 ML VIAL/CARP ONE (18:28)
[2022-09-05] MEDS ORDERED: NALOXONE HCL 0.4 MG/1 ML VIAL/CARP IV STA ×2 (18:28→20:18)
[2022-09-05 18:31] LABS: Prothrombin Time 11.3 Seconds (9.0-12.0)
[2022-09-05 18:32] LABS: Cast Urine Automated 0 /lpf (0-5)
[2022-09-05 18:45] LABS: Base Excess VBG 2.8 mEq/L; HCO3 VBG 31 mmol/L; Oxygen Saturation VBG 63.5 %; PCO2 VBG 65 mmHg (38-50); PO2 VBG 38 mmHg; pH VBG 7.29 (7.36-7.41)
[2022-09-05] MEDS ORDERED: POLYETHYLENE (MIRALAX) 17 GM PACK PO PRN (19:00)
[2022-09-05] MEDS ORDERED: ONDANSETRON INJ 2 MG/ML 2 ML VIAL IV PRN (19:00)
[2022-09-05] MEDS ORDERED: ALUMINUM/MAGNESIUM SUSP 30 ML UDC PO PRN (19:00)
[2022-09-05] MEDS ORDERED: MAGNESIUM HYDROXIDE SUSP 30 ML UDC PO PRN (19:00)
[2022-09-05 19:03] LABS: Influenza A virus by PCR Negative (Neg); Influenza B virus by PCR Negative (Neg); RSV by PCR Negative (Neg); SARS CoV2 RNA(COVID-19) Ceph NEGATIVE (Negative)
[2022-09-05 19:05] LABS: Amphetamines+Metham, Urine Neg (Neg); Barbiturates, Urine Neg (Neg); Benzodiazepine, Urine Pos (Neg); Cocaine, Urine Neg (Neg); MDMA (Ecstacy), Urine Neg (Neg); Methadone, Urine Neg (Neg); Opiate, Urine Pos (Neg); Phencyclidine, Urine Neg (Neg)
--- NOTE | 2022-09-05 19:06 | History & Physical Report ---
Date of Service September 05, 2022 Assessment & Plan (1) Overdose: (2) Unresponsiveness: (3) Sepsis: (4) Depression: (5) Aspiration pneumonia: Plan 71 year old with what appears to be intentional overdose. Found down; last week known 48 hours prior. Severe history of depression with known SI. H/O voluntary inpatient stay at the [facility] x3 days. UDS + for opioids and Benzos. Whole bottle of SSRI found next to her. Head CT negative. Intermittent somnolence. CXR suggestive of Aspiration PNA; will cover with Vanc + Unasyn. Lactate initially 4.8; will trend; suspect due to dehydration secondary to overdose. Narcan x2; suspect may need a Narcan infusion; discussed with Sumit Christie and will admit to ICU overnight. Lactic Acidosis secondary to overdose: Unresponsiveness: Respiratory Acidosis: Admit to PCU UDS + for Opioids and Benzos VBG 7.29, CO2 65, HCO3 31; received Narcan x2 Narcan x2 administered in ED 2L NSB given in ED; 0.9 NS @ 50mL/ maint fluids x2 bags; reassess mentation in AM Lactate 4.8; will trend CXR concerning for aspiration PNA; Vanc + Unasyn ordered in ED; continue until cultures return Blood Cultures ordered Sputum Culture ordered Suicide precautions NPO for now; safe tray when cleared to eat Confirmed code status with ; remain a full code and ok for intubation for airway protection or for hypercapnia; discussed with . Psych Consult placed Aspiration PNA: Secondary to Overdose CXR suggestive of aspiration PNA. Procalcitonin 1.77; recheck in AM Vanco + Unasyn started in ED; will continue for now NPO CXR in AM Depression: Has been voluntarily admitted to the [facility] 3-4 years ago for severe depression Takes Paroxetine; hold Bottle was found empty next to patient UDS + for Opioids and Benzos Psych consult placed Disposition: PCP: Dr. Thomas Code Status: Full Code VTE Prophylaxis: Lovenox SQ I spent a total of 88 minutes coordinating, documenting, and providing care for this patient excluding time spent in the performance of separately billed services. All of the aforementioned completed while collaborating with the assigned attending physician for a full treatment plan. Please see their addendum for further details. History of Present Illness Chief Complaint: unresponsiveness Primary Care Provider: Abad Thomas MD 71-year-old brought to the [facility] via EMS after she was found down on the floor by a neighbor today. Patient was not returning neighbors call so he went to check on her and she was last known well 2 days ago on Thursday. She was found to be dehydrated with dry mucous membranes, disheveled, incontinent of urine with a pressure ulcer on her sacrum. Patient has been intermittently responsive to verbal stimuli since. The bottle of medication found next to the patient that was empty; prescription for SSRI. Narcan given in ED x1 with some response. Patient did open her eyes voluntarily and respond to simple questions. Over time, she did become more lethargic and a second dose of Narcan was ordered. stated that she told him she was buying narcotics, but he is unsure where she was getting them. She has made comments to him that she does not want to be here anymore. She does care for a cat at home. Patient was given Narcan in the ED without initial response; however patient then started crying. Patient , Demarcus, at bedside and indicated that pt has struggled with severe depression over the past few years and had a voluntary inpatient stay at the [facility] 3-4 years ago. patient lactate 4.8 on admission, procalcitonin 1.77, VBG respiratory acidosis with hypercapnia, Initial Troponin elevated. Do not suspect ACS; will trend accordingly, some ketonuria noted. Pt does not use tobacco, alcohol, or recreational drugs, per . 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 Head CT in ED negative for ICH, SDH, midline shift. Chest x-ray suggestive of aspiration pneumonia; started on Vancomycin and Unasyn in ED. Confirmed code status with ; remain a full code and ok for intubation for suspected airway protection or for hypercapnia; discussed with . Patient will be admitted to the ICU for further evaluation and management. Please see A/P for further details. Allergies Allergy/AdvReac Type Severity Reaction Status Date / Time Quinolones Allergy Severe DIZZY Verified 09/26/21 06:25 ANXIETY TINGLING IN ARMS Home Medications Medication Instructions Recorded Confirmed Type calcium 333 mg PO TID 09/03/21 09/26/21 History cholecalciferol (vitamin D3) 50 50 mcg PO QAM 09/03/21 09/26/21 History mcg (2,000 unit) tablet (Vitamin D3) paroxetine HCl 20 mg tablet 20 mg PO DAILY 09/05/22 09/05/22 History Past Med/Surg History Medical History (Updated 09/05/22 @ 21:54 by HERSON Rose) Anxiety hx Arthritis of left hip Aspiration pneumonia Depression hx History of anesthesia reaction "I woke up during surgery and they had to put me back under" Mood disorder hx Overdose Sepsis Unresponsiveness Surgical History History of esophagogastroduodenoscopy (EGD) History of lumbar surgery lumbar #5, 1995 Hx of colonoscopy Hx of total hip arthroplasty Lt. 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 On RA. shallow to apneic breaths GI: Abdomen S/NT/ND, Ax4 bowel sounds, (-) CVA tenderness Musculoskeletal: not able to assess due to somnolence Skin: Stage II coccyx pressure ulcer. Psych: unresponsive intermittently Results & Data Results & Data Vital Signs (Past 12 Hours) Vital Signs Temp Pulse Pulse Resp BP BP Pulse Ox 09/05/22 19:00 102 H 26 H 141/96 H 100 09/05/22 18:57 36.7 C 09/05/22 18:30 94 H 19 98 09/05/22 18:30 141/96 H 09/05/22 18:20 81 12 97 09/05/22 18:10 90 16 97 09/05/22 18:04 89 23 98 09/05/22 18:04 130/77 09/05/22 18:00 94 H 16 98 09/05/22 17:59 102 H 15 100 09/05/22 17:35 102 H 25 H 96 09/05/22 17:35 100 H 09/05/22 17:30 96 09/05/22 17:30 110 H 32 H 137/83 96 09/05/22 17:30 34.0 C L 110 H 30 H 137/83 96 O2 Del Method O2 Flow Rate 09/05/22 19:00 Nasal Cannula 3 09/05/22 18:57 09/05/22 18:30 09/05/22 18:30 09/05/22 18:20 09/05/22 18:10 09/05/22 18:04 3 09/05/22 18:04 09/05/22 18:00 09/05/22 17:59 Nasal Cannula 3 09/05/22 17:35 Nasal Cannula 3 09/05/22 17:35 09/05/22 17:30 Nasal Cannula 4 09/05/22 17:30 Nasal Cannula 4 09/05/22 17:30 Room Air Laboratory Results Short CBC 09/05/22 Range/Units 17:28 WBC 10.44 (4.8-10.8) K/ul Hgb 17.2 H (12.0-16.0) g/dl Hct 52.0 H (37.0-47.0) % Plt Count 168 (130-400) K/uL BMP 09/05/22 17:28 Sodium 141 Potassium 5.3 H Chloride 101 Carbon Dioxide 32 BUN 37 H Creatinine 0.75 Glucose 162 H Calcium 10.3 Cardiac Enzymes 09/05/22 Range/Units 18:17 Total Creatine Kinase 1848 H (26-192) U/L Liver Function 09/05/22 Range/Units 17:28 Total Bilirubin 0.7 (0.2-1.0) mg/dl Direct Bilirubin 0.1 (0-0.2) mg/dl AST 101 H (13-39) U/L ALT 53 H (7-52) U/L Alkaline Phosphatase 66 (34-104) U/L Albumin 4.4 (3.4-5.0) gm/dl Urine 09/05/22 Range/Units 17:39 Urine Color Dark Yellow Urine Appearance Cloudy A (Clear) Urine pH 5.5 (4.5-7.5) Ur Specific [place] 1.026 (1.000-1.030) Urine Protein 2+ H (Negative) Urine Glucose (UA) Trace H (Negative) Diagnostic Findings Chest X-Ray 09/05/22 17:30 SINGLE VIEW CHEST CLINICAL HISTORY: Sepsis. FINDINGS: An AP, portable, upright chest radiograph is compared to study dated 817. The cardiomediastinal silhouette is unremarkable noting atherosclerotic calcification of the thoracic aorta. Airspace consolidation is seen at the right lung base. No large pleural effusion or pneumothorax is identified. The skeletal structures are osteopenic. The bony thorax is grossly intact. IMPRESSION: Airspace consolidation at the right lung base is typical for pneumonia/aspiration pneumonitis. Clinical correlation will be required and radiographic follow-up to resolution is recommended. ACT 112: Negative or not required by law. Electronically signed by: Kingsley Cabral M.D. 09/05/2022 5:[address] 09/05/22 17:31 CT SCAN OF THE BRAIN WITHOUT IV CONTRAST CLINICAL HISTORY: Change in mental status. COMPARISON STUDY: CT of the brain dated 09/04/2008. TECHNIQUE: Unenhanced axial CT scan of the brain is performed from the vertex to the skull base. A dose lowering technique was utilized adhering to the principles of ALARA. CT DOSE: 703.85 mGy.cm FINDINGS: Brain parenchyma: There is age-related involutional change noting mild subcortical and periventricular microangiopathic disease. There is no hemorrhage, mass effect, or evidence of acute territorial ischemia by CT criteria. Palafox-white matter differentiation is preserved. No extra-axial fluid collection is seen. Ventricles, sulci, cisterns: Prominent secondary to involutional change. Intracranial vasculature: There is atherosclerotic calcification of the cavernous carotid arteries. Calvarium: Unremarkable. Sinuses and mastoids: The visualized paranasal sinuses are clear. The mastoid air cells are well pneumatized. Orbits: The bony orbits are grossly intact. There is a left ocular lens implant. IMPRESSION: There is no hemorrhage, mass effect, or evidence of acute territorial ischemia by CT criteria. ACT 112: Negative or not required by law. Electronically signed by: Kingsley Cabral M.D. 09/05/2022 6:00 PM Code Status & VTE Plan Code Status Full Code in the event of cardiac or respiratory arrest VTE Prophylaxis Plan VTE Prophylaxis will be ordered: Yes Supervising Physician Co-Signing Physician Notes Ms. Melgar is a 71 year old female with pmhx of Depression with anxiety, mood disorder, prior voluntary admission to psych facility, OA of the left hip s/p NELIDA. She was found unresponsive at home. Here she is found to have severe sepsis d/t aspiration PNA and UTI. Also found to have suspected drug overdose (UDS + benzos and opiates), mixed respiratory / metabolic acidosis, rhabdomyolysis, hyperkalemia, and hypermagnesemia. # severe sepsis: not in shock SIRS criteria at presentation T < 36 C, HR > 90, RR > 20 d/t PNA and UTI making this sepsis end organ damage (elevated LFTs, lactic acid > 2) making this severe sepsis continue IVF resuscitation, IV abx, supportive care # Acidosis: lactate 4.2, CO2 65 d/t metabolic and respiratory etiology treat underlying etiologies, anticipate lactate to resolve with IVF resuscitation # rhabdo: d/t prolonged down time causing diffuse muscle injury associated with elevated LFTs aggressive IV hydration, monitor renal and hepatic function # suspected SI attempt/intentional OD long standing psychiatric illness, possibly with acute exacerbation d/t divorce process UDS + opiates and benzos, not prescribed found with an empty bottle of SSRI, unclear how many she may have taken responded somewhat to narcan, will continue narcan as need, anticipate gtt psych hold with suicide precautions c/s pysch when pt is awake # aspiration PNA: d/t AMS seen on cxr procalcitonin 1.77 continue abx covid, flu, rsv negative # UTI: UA with 4+ bacteria cont abx, narrow based on cx # unresponsive: toxic/metabolic/infectious encephalopathy d/t the myriad of problems outlined both above and below Opiates, benzos, possible SSRI O/D, multiple metabolic derangements, severe sepsis (PNA/UTI), hypercarbia (on VBG) some response to narcan, will likely need narcan gtt. treat underlying causes as above and below #Hyperkalemia / #Hypermagnesemia likely d/t hemoconcentration, anticipate resolution with IVF/hemodilution # polycythemia: likely d/t hemoconcentration, anticipate resolution with IVF/hemodilution # transaminitis: suspected multifactorial; shock liver d/t sepsis and rhabdo continue IVF resuscitation monitor LFTs acetaminophen level < avoid hepatotoxins if trending up despite the above consult GI/hepatology PE: Gen: obtunded, minimally responsive at the time of my exam, responding only to pain stimuli with grimacing and groaning. Not speaking, or opening eyes. Not following commands. Not responding to voice or gentle touch. Head: NC Eyes: sluggish pupillary response, pupils are constricted Nose: normal, patent nares Mouth: dry with thick secretions Neck: trachea midline CV: RRR, S1 S2, no m/r/g Pulm: CTA, diminished d/t poor effort GI/Abd: +BS, soft, NT, ND, no guarding but does grimace with deep palpation Ext: no edema. peripheral pulses intact Msk: muscle wasting Neuro: minimally responsive, responding to pain only, sluggish pupillary res ponse, constricted pupils Psych: unable to assess d/t mental status Skin: Stage II coccyx pressure ulcer POA rest per attested note above
[2022-09-05 21:21] LABS: Base Excess VBG 1.4 mEq/L; HCO3 VBG 28 mmol/L; Oxygen Saturation VBG 62.6 %; PCO2 VBG 52 mmHg (38-50); PO2 VBG 29 mmHg; pH VBG 7.34 (7.36-7.41)
--- NOTE | 2022-09-05 21:39 | Critical Care Consultation ---
Date of Consultation September 05, 2022 Assessment & Plan (1) Encephalopathy: (2) Aspiration pneumonia: (3) Sepsis: (4) Overdose: (5) Mood disorder: (6) Respiratory acidosis: (7) Rhabdomyolysis: (8) Elevated liver enzymes: (9) Sacral decubitus ulcer: Plan Reason Critically Ill: Encephalopathy in the setting of hypercarbia likely secondary to narcosis complicated by sepsis without shock at this current time. Neuro - Encephalopathy, MDD, Narcosis, Possible suicidal attempt CAM ICU: [facility] - Patient encephalopathy initially likely related to narcosis/hypercarbia- this is resolved with 2 doses of Narcan- if needed to re-dose consider Narcan infusio n - Will follow her neurological examinations- this is improving as she is following most commands and moving all extremities- suspect remaining mentation and actions are related to her underlying pysch disorder - she is without hyperthemia, clonus, or diaphoresis- so doubt any serotonin syndrome involvement at this time - Psych consultation will be helpful - Continue with suicide precautions until better able to assess/evaluate - avoid further sedating medications unless medically necessary - Tox screen positive for BZD and Opiates Cardiac - No acute needs - QTC normal - no acute STEMI on ECG - hypovolemic on exam and with hemoconcentration on labs Respiratory - Hypercarbia acute, Pneumonia likely aspiration RLL - Opacification on CXR- associated with encephalopathy and narcosis likely - Continue with Unasyn/Vanco - Hypercarbia resolved with Narcan - Continuous EtCO2 monitoring GI - Elevated liver enzymes - Likely multifactorial - unsure of ETOH intake - but likely at this time related to hypovolemia and mild rhabo - INR pending - follow LFTs in morning - Thiamine 200mg IV now and then daily0 until nutritional evaluation able to be completed RENAL/LYTES - Respiratory Acidosis, Elevated Lactate, Hyperkalemia - Acidosis resolved with improvement of respiratory status as above - Hyperkalemia should improve with IVF as well as reversing acidosis - Mild Rhabdo- Salcedo score -2 low risk- continue with IVF guided towards urine output - No acute needs - UA likely contaminated - Epps until improved mentation ENDO - DMII - ICU hyperglycemia protocol - HGB A1C in morning HEME - No acute needs ID - Sepsis likely secondary to aspiration pna - Sepsis without shock - SIRS- 3 on arrival - Continue with Vanco and Unasyn- soft tissue injury to sacrum Stage II with shearing - PCT 1.77- await blood culture SKIN- Stage I with open shearing to sacrum, stage I to left hip - turn and reposition q2 hours LINES/IV ACCESS - [place] Continue use of these lines DVT PROPHYLAXIS - SCDS, Lovenox 30mg SQ q12 DISPO - ICU until narcosis resolved I have personally spent 40 minutes of critical care time in the direct management of this patient. This is a life/limb threatening event. This includes time spent evaluating patient, direct bedside care, chart review, placing orders, interpretation of diagnostic studies, discussion with consultants, patient, and family members, as well as other required patient management activities. This time is exclusive of all separately billable procedures, separate from and in addition to any other critical care service time. Thank you for allowing us to participate in the care of this patient. Please refer to my attending physician's documentation for any further recommendations. History of Present Illness Reason for Consultation: encephalopathy/narcosis Requesting Physician: Lottie Stein MD Attending Physician: Lottie Stein History of Present Illness 71 YOF with medical history of: Arthritis of hips- (with TKA of left hip 2018), Major Depressive Disorder, Generalized anxiety disorder, DMII, Ostoeperosis, GERD. Patient was brought into the EMD today via EMS after being found on the ground at home un-responsive by her family. Family last talked with patient ~48 hours prior to going to check on her where they found her as previously mentioned on the ground, incontinent, pressure ulceration on her sacrum. There is report of of empty bottle of medication found by the patient - however no further information or mention of this other than an "SSRI". She was administered Narcan x1 in the EMD with improvement in her mental status/respiratory status, however patient remains just with crying and non- verbal or following commands. Reported by chart review that patient has been getting narcotics buy buying them- her urine toxicology is positive for narcotics and benzodiazepines. Overall the patient presented with non-gap acidosis with initial Co2 68 and PH 7.29, lactate level of 4.3, elevated LFTS in the setting of elevated CK 1848. She had PCT ordered that resulted as 1.77 with likely source pulmonary from aspiration noted opacity in RLL and/or urine and/or skin. She had head CT scan that was negative for acute process.Patient required a second dose of Narcan while in the EMD- for this reason ICU admission was requested for possible need of re-dose/initiation of drip. Her lactate is improving as well as her PH is now normalized with Co2 of 52. Patient will be initiated on IVF for hydration as well as continued excretion of narcotics, continue with broad spectrum abx. Follow mental status and ventilation/oxygenation status. She will be admitted with suicide precautions- with hx of MDD and previous care at [facility] with suicidal ideations- reports as well as comments to spouse that she does not want to be hear anymore- however at my time of visitation there were no family present to verify and patient is not communicating. So will continue precautionis and watch. Patient is full CODE Allergies Allergy/AdvReac Type Severity Reaction Status Date / Time Quinolones Allergy Severe DIZZY Verified 09/26/21 06:25 ANXIETY TINGLING IN ARMS Home Medications Medication Instructions Recorded Confirmed Type calcium 333 mg PO TID 09/03/21 09/26/21 History cholecalciferol (vitamin D3) 50 50 mcg PO QAM 09/03/21 09/26/21 History mcg (2,000 unit) tablet (Vitamin D3) paroxetine HCl 20 mg tablet 20 mg PO DAILY 09/05/22 09/05/22 History Patient History Medical History Anxiety hx Arthritis of left hip Aspiration pneumonia Depression hx History of anesthesia reaction "I woke up during surgery and they had to put me back under" Mood disorder hx Overdose Sepsis Unresponsiveness Surgical History History of esophagogastroduodenoscopy (EGD) History of lumbar surgery lumbar #5, 1995 Hx of colonoscopy Hx of total hip arthroplasty Lt. Family History Other No significant family history Social History Smoking Status: Unknown if ever smoked Second Hand Exposure: No; Do You Dip or Chew Tobacco: No; Hx Alcohol Use: No Hx Substance Use: Yes Last Used Substance: Just Prior to Arrival Substance Use Type Other:: benzos Preferred Language: Burmese Communication Ability: Effective Visual Impairment: Limited Hearing Ability: Normal Manager [employer] Required: No Beliefs That Will Affect Care: None Current Living Situation: Alone Feels Safe at Home: Yes Assistive Devices: Glasses Review of Systems Review of Systems: unable to obtain secondary to patient mentation Physical Exam Physical Exam: PHYSICAL EXAM: General: cryig in bed with eyes closed and not following commands Head: Normocephalic, atraumatic ENT: PERRLA, mucous membranes dry Neuro: AAO x 0, crying and not answering questions, withdraws all extremities to pain with localization Chest: equal rise and fall of the chest, no accessory muscle use, no heaves or thrills, unable to auscultate secondary to crying phonation Cardiac: Regular rate and rhythm, telemetry reviewed- NSR, skin warm dry, cap refill <3 seconds, peripheral pulses +2 no JVD, no edema GI: NABS x 4 quadrants, soft, no guarding or tenderness : Epps to gravity Psych: crying and not conversing Skin: reported stage I-II on sacrum- currently covered with Optifoam Results & Data Results & Data Vital Signs (Past 12 Hours) Vital Signs Temp Pulse Pulse Resp BP BP Pulse Ox 09/05/22 21:10 107 H 18 167/104 H 95 09/05/22 21:00 107 H 18 144/124 H 97 09/05/22 21:19 91 H 21 95 09/05/22 21:15 99 H 22 167/104 H 95 09/05/22 20:30 111 H 21 170/98 H 99 09/05/22 20:36 96 H 23 170/98 H 99 09/05/22 20:00 82 21 139/88 99 09/05/22 19:30 91 H 19 143/97 H 99 09/05/22 19:20 91 H 26 H 98 09/05/22 19:10 94 H 34 H 133/96 99 09/05/22 19:00 103 H 22 133/96 100 09/05/22 20:10 78 14 139/88 99 09/05/22 19:00 102 H 26 H 141/96 H 100 09/05/22 18:57 36.7 C 09/05/22 18:30 94 H 19 98 09/05/22 18:30 141/96 H 09/05/22 18:20 81 12 97 09/05/22 18:10 90 16 97 09/05/22 18:04 89 23 98 09/05/22 18:04 130/77 09/05/22 18:00 94 H 16 98 09/05/22 17:59 102 H 15 100 09/05/22 17:35 102 H 25 H 96 09/05/22 17:35 100 H 09/05/22 17:30 96 09/05/22 17:30 110 H 32 H 137/83 96 09/05/22 17:30 34.0 C L 110 H 30 H 137/83 96 O2 Del Method O2 Flow Rate 09/05/22 21:10 Room Air 09/05/22 21:00 Nasal Cannula 3 09/05/22 21:19 Room Air 09/05/22 21:15 Room Air 09/05/22 20:30 Nasal Cannula 3 09/05/22 20:36 Nasal Cannula 3 09/05/22 20:00 Nasal Cannula 3 09/05/22 19:30 Nasal Cannula 3 09/05/22 19:20 Nasal Cannula 3 09/05/22 19:10 Nasal Cannula 3 09/05/22 19:00 09/05/22 20:10 Nasal Cannula 3 09/05/22 19:00 Nasal Cannula 3 09/05/22 18:57 09/05/22 18:30 09/05/22 18:30 09/05/22 18:20 09/05/22 18:10 09/05/22 18:04 3 09/05/22 18:04 09/05/22 18:00 09/05/22 17:59 Nasal Cannula 3 09/05/22 17:35 Nasal Cannula 3 09/05/22 17:35 09/05/22 17:30 Nasal Cannula 4 09/05/22 17:30 Nasal Cannula 4 09/05/22 17:30 Room Air Laboratory Results Abnormal lab results 09/05/22 09/05/22 09/05/22 Range/Units 17:28 17:28 17:28 RBC 5.75 H (4.20-5.40) M/uL Hgb 17.2 H (12.0-16.0) g/dl Hct 52.0 H (37.0-47.0) % Neut # (Auto) 9.32 H (1.40-6.50) K/uL Lymph # (Auto) 0.41 L (1.2-3.4) K/uL [place] # (Auto) 0.63 H (0.11-0.59) K/uL VBG pH (7.36-7.41) VBG pCO2 (38-50) mmHg Potassium 5.3 H (3.5-5.1) mmol/L BUN 37 H (6-23) mg/dl BUN/Creatinine Ratio 49.3 H (10-20) Glucose 162 H (70-99(Fasting)) mg/dl Lactate (0.4-2.0) mmol/L Magnesium 2.8 H (1.7-2.4) mg/dl AST 101 H (13-39) U/L ALT 53 H (7-52) U/L Total Creatine Kinase (26-192) U/L Procalcitonin 1.77 H (0-0.5) ng/ml Urine Appearance (Clear) Urine Protein (Negative) Urine Glucose (UA) (Negative) Urine Ketones (Negative) Urine Blood (Negative) Ur Leukocyte Esterase (Negative) Urine WBC (Auto) (0-5) /hpf Urine Bacteria (Auto) (Negative) Salicylates (3.0-30) mg/dl Urine Opiates Screen (Neg) Acetaminophen (10-30) ug/ml U Benzodiazepines Scrn (Neg) 09/05/22 09/05/22 09/05/22 Range/Units 17:28 17:39 17:39 RBC (4.20-5.40) M/uL Hgb (12.0-16.0) g/dl Hct (37.0-47.0) % Neut # (Auto) (1.40-6.50) K/uL Lymph # (Auto) (1.2-3.4) K/uL [place] # (Auto) (0.11-0.59) K/uL VBG pH (7.36-7.41) VBG pCO2 (38-50) mmHg Potassium (3.5-5.1) mmol/L BUN (6-23) mg/dl BUN/Creatinine Ratio (10-20) Glucose (70-99(Fasting)) mg/dl Lactate (0.4-2.0) mmol/L Magnesium (1.7-2.4) mg/dl AST (13-39) U/L ALT (7-52) U/L Total Creatine Kinase (26-192) U/L Procalcitonin (0-0.5) ng/ml Urine Appearance Cloudy A (Clear) Urine Protein 2+ H (Negative) Urine Glucose (UA) Trace H (Negative) Urine Ketones 1+ H (Negative) Urine Blood 3+ H (Negative) Ur Leukocyte Esterase 1+ H (Negative) Urine WBC (Auto) >30 H (0-5) /hpf Urine Bacteria (Auto) 4+ H (Negative) Salicylates < 3.0 L (3.0-30) mg/dl Urine Opiates Screen Pos H (Neg) Acetaminophen < 3 L (10-30) ug/ml U Benzodiazepines Scrn Pos H (Neg) 09/05/22 09/05/22 09/05/22 Range/Units 18:17 18:17 18:17 RBC (4.20-5.40) M/uL Hgb (12.0-16.0) g/dl Hct (37.0-47.0) % Neut # (Auto) (1.40-6.50) K/uL Lymph # (Auto) (1.2-3.4) K/uL [place] # (Auto) (0.11-0.59) K/uL VBG pH 7.29 L (7.36-7.41) VBG pCO2 65 H (38-50) mmHg Potassium (3.5-5.1) mmol/L BUN (6-23) mg/dl BUN/Creatinine Ratio (10-20) Glucose (70-99(Fasting)) mg/dl Lactate 4.3 H* (0.4-2.0) mmol/L Magnesium (1.7-2.4) mg/dl AST (13-39) U/L ALT (7-52) U/L Total Creatine Kinase 1848 H (26-192) U/L Procalcitonin (0-0.5) ng/ml Urine Appearance (Clear) Urine Protein (Negative) Urine Glucose (UA) (Negative) Urine Ketones (Negative) Urine Blood (Negative) Ur Leukocyte Esterase (Negative) Urine WBC (Auto) (0-5) /hpf Urine Bacteria (Auto) (Negative) Salicylates (3.0-30) mg/dl Urine Opiates Screen (Neg) Acetaminophen (10-30) ug/ml U Benzodiazepines Scrn (Neg) 09/05/22 09/05/22 09/05/22 Range/Units 20:20 21:11 21:11 RBC (4.20-5.40) M/uL Hgb (12.0-16.0) g/dl Hct (37.0-47.0) % Neut # (Auto) (1.40-6.50) K/uL Lymph # (Auto) (1.2-3.4) K/uL [place] # (Auto) (0.11-0.59) K/uL VBG pH 7.34 L (7.36-7.41) VBG pCO2 52 H (38-50) mmHg Potassium (3.5-5.1) mmol/L BUN (6-23) mg/dl BUN/Creatinine Ratio (10-20) Glucose (70-99(Fasting)) mg/dl Lactate 3.4 H* 2.3 H* (0.4-2.0) mmol/L Magnesium (1.7-2.4) mg/dl AST (13-39) U/L ALT (7-52) U/L Total Creatine Kinase (26-192) U/L Procalcitonin (0-0.5) ng/ml Urine Appearance (Clear) Urine Protein (Negative) Urine Glucose (UA) (Negative) Urine Ketones (Negative) Urine Blood (Negative) Ur Leukocyte Esterase (Negative) Urine WBC (Auto) (0-5) /hpf Urine Bacteria (Auto) (Negative) Salicylates (3.0-30) mg/dl Urine Opiates Screen (Neg) Acetaminophen (10-30) ug/ml U Benzodiazepines Scrn (Neg) Diagnostic Findings Chest X-Ray 09/05/22 17:30 SINGLE VIEW CHEST CLINICAL HISTORY: Sepsis. FINDINGS: An AP, portable, upright chest radiograph is compared to study dated 817. The cardiomediastinal silhouette is unremarkable noting atherosclerotic calcification of the thoracic aorta. Airspace consolidation is seen at the right lung base. No large pleural effusion or pneumothorax is identified. The skeletal structures are osteopenic. The bony thorax is grossly intact. IMPRESSION: Airspace consolidation at the right lung base is typical for pneumonia/aspiration pneumonitis. Clinical correlation will be required and radiographic follow-up to resolution is recommended. ACT 112: Negative or not required by law. Electronically signed by: Kingsley Cabral M.D. 09/05/2022 5:[address] 09/05/22 17:31 CT SCAN OF THE BRAIN WITHOUT IV CONTRAST CLINICAL HISTORY: Change in mental status. COMPARISON STUDY: CT of the brain dated 09/04/2008. TECHNIQUE: Unenhanced axial CT scan of the brain is performed from the vertex to the skull base. A dose lowering technique was utilized adhering to the principles of ALARA. CT DOSE: 703.85 mGy.cm FINDINGS: Brain parenchyma: There is age-related involutional change noting mild subcortical and periventricular microangiopathic disease. There is no hemorrhage, mass effect, or evidence of acute territorial ischemia by CT criteria. Palafox-white matter differentiation is preserved. No extra-axial fluid collection is seen. Ventricles, sulci, cisterns: Prominent secondary to involutional change. Intracranial vasculature: There is atherosclerotic calcification of the cavernous carotid arteries. Calvarium: Unremarkable. Sinuses and mastoids: The visualized paranasal sinuses are clear. The mastoid air cells are well pneumatized. Orbits: The bony orbits are grossly intact. There is a left ocular lens implant. IMPRESSION: There is no hemorrhage, mass effect, or evidence of acute territorial ischemia by CT criteria. ACT 112: Negative or not required by law. Electronically signed by: Kingsley Cabral M.D. 09/05/2022 6:00 PM Medications Administered Home Medications calcium 333 mg PO TID 09/03/21 [History Confirmed 09/26/21] cholecalciferol (vitamin D3) 50 mcg (2,000 unit) tablet (Vitamin D3) 50 mcg PO QAM 09/03/21 [History Confirmed 09/26/21] paroxetine HCl 20 mg tablet 20 mg PO DAILY 09/05/22 [History Confirmed 09/05/22] Active Medications Acetaminophen (Acetaminophen 325 Mg Tab) 650 mg PO Q4H PRN PRN Reason: Pain or Fever Stop: 10/05/22 18:59 Al Hydrox/Mg Hydrox/Simethicone (Aluminum/Magnesium Susp 30 Ml Udc) 15 ml PO Q4H PRN PRN Reason: Dyspepsia Stop: 10/05/22 18:59 Vancomycin HCl 1,000 mg/ (Sodium Chloride) 270 mls @ 200 mls/hr IV Q18H ERMIAS Stop: 09/13/22 00:00 Ampicillin Sodium/Sulbactam Sodium 3,000 mg/ Sodium Chloride 108 mls @ 216 mls/hr IV Q6H ERMIAS Stop: 09/13/22 00:00 Lactated Ringer's (Lr) 1,000 mls @ 100 mls/hr IV .Q10H ERMIAS Stop: 10/05/22 21:47 Magnesium Hydroxide (Magnesium Hydroxide Susp 30 Ml Udc) 30 ml PO Q12H PRN PRN Reason: Constipation Stop: 10/05/22 18:59 Miscellaneous Information (Vancomycin Consult Active) 1 each N/A UD PRN PRN Reason: Consult Stop: 10/05/22 17:52 Ondansetron HCl (Ondansetron Inj 2 Mg/Ml 2 Ml Vial) 4 mg IV Q6H PRN PRN Reason: Nausea Stop: 10/05/22 18:59 Paroxetine HCl (Paroxetine Hcl 20 Mg Tab) 20 mg PO DAILY ERMIAS Stop: 10/06/22 08:59 Polyethylene Glycol (Polyethylene (Miralax) 17 Gm Pack) 17 gm PO DAILY PRN PRN Reason: Constipation Stop: 10/05/22 18:59 ECG Additional Comments: Normal sinus rhythm Normal ECG When compared with ECG of 06-OCT-2007 07:58, No significant change was found QT/QTc 336/422 ms Coding Level of Care Code 35469 CRITICAL CARE 1ST 30-74M Diagnoses Encephalopathy G93.40 Aspiration pneumonia J69.0 Sepsis A41.9 Overdose T50.901A Mood disorder F39 Respiratory acidosis E87.29 Rhabdomyolysis M62.82 Elevated liver enzymes R74.8 Sacral decubitus ulcer L89.159
[2022-09-05] MEDS ORDERED: AMPICILLIN/SULBACTAM SOD 3,000 MG in 0.9 % SODIUM CHLORIDE 100 ML IV SCH (22:00)
[2022-09-05] MEDS ORDERED: AMPICILLIN/SULBACTAM SOD 1,500 MG in 0.9 % SODIUM CHLORIDE 100 ML IV SCH (22:00)
[2022-09-05] MEDS ORDERED: NALOXONE HCL 0.4 MG/1 ML VIAL/CARP IV PRN (22:18)
[2022-09-05] MEDS ORDERED: THIAMINE HCL 200 MG in SODIUM CHLORIDE 0.9% 50 ML IV STA (22:18)
[2022-09-05] MEDS: LACTATED RINGER'S 1,000 ML IV SCH (22:22)
[2022-09-05] MEDS ORDERED: ENOXAPARIN INJ 40 MG/0.4 ML SYR SQ SCH (22:45)
[2022-09-05 23:08] LABS: Appearance Urine Cloudy (Clear); Bacteria Urine Automated Negative (Negative); Bilirubin Urine Negative (Negative); Blood Urine 3+ (Negative); Color Urine Yellow; Glucose Urine UA Trace (Negative); Ketones Urine Trace (Negative); Leukocyte Esterase Urine 1+ (Negative); Nitrite Urine Positive (Negative); Protein Urine 2+ (Negative); Specific Gravity Urine 1.028 (1.000-1.030); Urobilinogen Urine Negative (Negative); WBC Urine Automated >30 /hpf (0-5)
[2022-09-05 23:22] LABS: Mucus Urine Present (None Prsent)
[2022-09-06] MEDS ORDERED: VANCOMYCIN HCL 1,000 MG in SODIUM CHLORIDE 0.9% 250 ML IV SCH
[2022-09-06] MEDS: ENOXAPARIN INJ 30 MG/0.3 ML SYR SQ SCH ×2 (00:13→14:12)
[2022-09-06] MEDS: AMPICILLIN/SULBACTAM SOD 3,000 MG in 0.9 % SODIUM CHLORIDE 100 ML IV SCH ×2 (00:14→06:16)
[2022-09-06 00:25] LABS: INR 1.1 (0.9-1.1); Prothrombin Time 11.5 Seconds (9.0-12.0)
[2022-09-06] MEDS ORDERED: LACTATED RINGER'S 250 ML IV ONE (00:25)
[2022-09-06] MEDS ORDERED: GLUCOSE 10 TAB/TUBE PO PRN (00:52)
[2022-09-06] MEDS ORDERED: GLUCAGON FOR INJ 1 MG VIAL SQ PRN (00:52)
[2022-09-06] MEDS ORDERED: GLUCOSE 40% GEL 15 GM TUBE PO PRN (00:52)
[2022-09-06] MEDS ORDERED: CARBOHYDRATES FOR HYPOGLYCEMIA PO PRN (00:52)
[2022-09-06] MEDS ORDERED: DEXTROSE 50% 50 ML SYRINGE IV PRN (00:52)
[2022-09-06] MEDS: LACTATED RINGER'S 1,000 ML IV SCH (02:02)
[2022-09-06 04:47] LABS: Albumin Globulin Ratio 1.3 (0.9-2); Albumin Level 3.4 gm/dl (3.4-5.0); BUN Creatinine Ratio 57.1 (10-20); Bilirubin,Total 0.7 mg/dl (0.2-1.0); Calcium 8.8 mg/dl (8.6-10.3); Creatinine Clr Calc Pharmacy 97.4 ml/min; Est GFR (African American) 119.5 ml/min; Est GFR (Non-African American) 103.1 ml/min; Globulin 2.6 gm/dl (2.5-4.0); Magnesium 2.1 mg/dl (1.7-2.4); Phosphorus 1.7 mg/dl (2.5-4.9)
[2022-09-06 05:03] LABS: Hematocrit (blood only) 42.3 % (37.0-47.0); Hemoglobin 13.9 g/dl (12.0-16.0); Mean Corpuscular Hemoglobin 29.9 pg (25.0-34.0); Mean Corpuscular Hgb Conc 32.9 g/dL (32.0-36.0); Mean Platelet Volume 10.9 fL (9.4-12.4); Platelet Count 126 K/uL (130-400); RDW Coefficient of Variation 12.3 % (11.5-14.5); RDW Standard Deviation 40.8 fL (36.4-46.3); Red Blood Count 4.65 M/uL (4.20-5.40); White Blood Count 7.92 K/ul (4.8-10.8)
[2022-09-06] MEDS ORDERED: SODIUM PHOSPHATE 3 MMOL/1 ML INFUSION IV STA (06:06)
[2022-09-06] MEDS: ICU ELECTROLYTE REPLACEMENT PROTOCOL SCH ×2 (06:16→17:40)
[2022-09-06] MEDS ORDERED: SODIUM PHOSPHATE 21 MMOL in SODIUM CHLORIDE 0.9% 500 ML IV ONE (06:30)
[2022-09-06] MEDS: ICU Protocol for HYPERglycemia SCH ×3 (08:00→16:30)
[2022-09-06] MEDS: PARoxetine HCL 20 MG TAB PO SCH ×2 (08:43→09:47)
[2022-09-06] MEDS: THIAMINE HCL 100 MG in SYRINGE 9 ML IV SCH (09:03)
--- NOTE | 2022-09-06 10:15 | Critical Care Progress Note ---
Date of Service September 06, 2022 Assessment & Plan (1) Encephalopathy: (2) Aspiration pneumonia: (3) Sepsis: (4) Overdose: (5) Mood disorder: (6) Respiratory acidosis: (7) Rhabdomyolysis: (8) Elevated liver enzymes: (9) Sacral decubitus ulcer: Plan Reason Critically Ill: Encephalopathy in the setting of hypercarbia likely secondary to narcosis complicated by sepsis without shock at this current time. Neuro - Encephalopathy, MDD, Narcosis, Possible suicidal attempt CAM ICU: [facility] -Severely labile mood due to mood disorder. - Psych consultation will be helpful - Continue with suicide precautions until better able to assess/evaluate - avoid further sedating medications unless medically necessary - Tox screen positive for BZD and Opiates Cardiac - No acute needs - QTC normal - no acute STEMI on ECG -Volume status improving. Discontinue crystalloid infusions. Start diet. Respiratory - Hypercarbia acute, Pneumonia likely aspiration RLL -Improving. Saturating well on room air. GI - Elevated liver enzymes -Improving. RENAL/LYTES - Respiratory Acidosis, Elevated Lactate, Hyperkalemia -Improving. Discontinue crystalloid infusion. - No acute needs - UA likely contaminated - Epps until improved mentation ENDO - DMII - ICU hyperglycemia protocol - HGB A1C in morning HEME - No acute needs ID - Sepsis likely secondary to aspiration pna -Discontinue vancomycin and Unasyn. Start ceftriaxone. Urine cultures growing gram-negative rods. MRSA screen from the nares negative. SKIN- Stage I with open shearing to sacrum, stage I to left hip - turn and reposition q2 hours LINES/IV ACCESS - PIV, Epps Continue use of these lines DVT PROPHYLAXIS - SCDS, Lovenox 30mg SQ q12 DISPO -stable for transfer to PCU. Discussed on multidisciplinary rounds. Admission and Anticipated Discharge Date Admission Date: September 05, 2022 Subjective Patient tearful and difficult to reorient this morning. Sitter at bedside. Hemodynamically stable. Denies any physical complaints. Review of Systems Review of Systems: All systems reviewed & are unremarkable except as noted in HPI & below Physical Exam Physical Exam: PHYSICAL EXAM: General: cryig in bed with eyes closed and not following commands Head: Normocephalic, atraumatic ENT: PERRLA, mucous membranes dry Neuro: AAO x 0, crying and not answering questions, withdraws all extremities to pain with localization Chest: equal rise and fall of the chest, no accessory muscle use, no heaves or thrills, unable to auscultate secondary to crying phonation Cardiac: Regular rate and rhythm, telemetry reviewed- NSR, skin warm dry, cap refill <3 seconds, peripheral pulses +2 no JVD, no edema GI: NABS x 4 quadrants, soft, no guarding or tenderness : Epps to gravity Psych: crying and not conversing Skin: reported stage I-II on sacrum- currently covered with Optifoam Results & Data Results & Data Vital Signs (Past 12 Hours) Vital Signs Temp Pulse Resp BP Pulse Ox O2 Del Method 09/06/22 07:59 Room Air 09/06/22 06:00 37.3 C 96 H 24 144/83 H 94 Room Air 09/06/22 05:39 102 H 18 153/111 H 94 09/06/22 05:00 101 H 16 175/110 H 94 09/06/22 04:00 98 H 22 146/89 H 95 Room Air 09/06/22 03:00 36.7 C 102 H 12 164/108 H 92 09/06/22 02:00 102 H 25 H 159/97 H 92 Room Air 09/06/22 01:00 87 27 H 143/80 H 94 Room Air 09/06/22 00:00 36.8 C 69 22 110/58 L 95 Room Air 09/06/22 00:00 90 09/05/22 23:05 72 12 92 Room Air 09/05/22 23:00 36.6 C 72 12 115/69 94 Room Air Coding Level of Care Code 82894 SUB INP/OBS CARE 04/09MIN Diagnoses Encephalopathy G93.40 Aspiration pneumonia J69.0 Sepsis A41.9 Overdose T50.901A Mood disorder F39 Respiratory acidosis E87.29 Rhabdomyolysis M62.82 Elevated liver enzymes R74.8 Sacral decubitus ulcer L89.159
[2022-09-06] MEDS ORDERED: IBUPROFEN 200 MG TAB PO STA (10:29)
[2022-09-06] MEDS ORDERED: METOPROLOL TARTRATE 1 MG/ML VIAL IV STA (10:57)
[2022-09-06] MEDS ORDERED: [UNRECOGNIZED DRUG - REMARK] ONE (11:00)
[2022-09-06] MEDS ORDERED: Heparin IV Adult Wt-Based Standard *NO* Bolus Protocol IV ONE (11:07)
[2022-09-06] MEDS ORDERED: METOPROLOL TARTRATE 25 MG TAB PO SCH (11:30)
[2022-09-06] MEDS: HEPARIN SODIUM/DEXTROSE 25,000 UNITS/500 ML BAG IV SCH (11:56)
[2022-09-06] MEDS: cefTRIAXone SODIUM 2,000 MG in DEXTROSE 5% 50 ML IV SCH (12:00)
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
--- NOTE | 2022-09-06 15:30 | Hospitalist Progress Note ---
Date of Service September 06, 2022 Assessment & Plan (1) Overdose: (2) Unresponsiveness: (3) Sepsis: (4) Depression: (5) Aspiration pneumonia: Plan 71 year old with what appears to be intentional overdose. Found down; last week known 48 hours prior. Severe history of depression with known SI. H/O voluntary inpatient stay at the [facility] x3 days. UDS + for opioids and Benzos. Whole bottle of SSRI found next to her. Head CT negative. Intermittent somnolence. CXR suggestive of Aspiration PNA; will cover with Vanc + Unasyn. Lactate initially 4.8; will trend; suspect due to dehydration secondary to overdose. Narcan x2; suspect may need a Narcan infusion; discussed with Sumit Christie and will admit to ICU overnight. Lactic Acidosis secondary to infection and is complicated by overdose Unresponsiveness: Likely secondary to overdose Overdose likely with SSRI--empty bottle was found beside patient Respiratory Acidosis: Admitted to ICU UDS + for Opioids and Benzos VBG 7.29, CO2 65, HCO3 31; received Narcan x2 Narcan x2 administered in ED 2L NSB given in ED; 0.9 NS @ 50mL/ maint fluids x2 bags; reassess mentation in AM Lactate 4.8; will trend-repeat lactate came back still elevated at 2.8 CXR concerning for aspiration PNA; Vanc + Unasyn ordered in ED; continue until cultures return Blood Cultures ordered-pending Urine culture is positive for gram-negative organism and further identification is pending Sputum Culture ordered-pending Suicide precautions-appreciate psychiatric input and recommendation for one-to-one sitter now and the patient cannot sign out AMA NPO for now; safe tray when cleared to eat Remains medically stable with improvement of hypercarbia and unresponsiveness She will be transferred to telemetry unit for continuation of care Developed a flutter with variable block Heart rate went up to 150 Appreciate rippler input and recommendation Has been started on intravenous heparin and intravenous beta-yvan Echo of the heart showed LV is normal in size, normal LV wall thickness, wall motion is normal, EF 60 to 65%, LA size is normal, aortic valve sclerosis mild without significant aortic stenosis and otherwise no significant valvular disease. Cardiology has been consulted Rhabdomyolysis Was noted to be on the floor Initial CPK was 1848 and repeat came back higher at 2995 We will continue with intravenous fluid Monitor PRP and CPK Aspiration PNA: Secondary to unresponsive episode CXR suggestive of aspiration PNA. Procalcitonin 1.77; Vanco + Unasyn started in ED; will continue for now Vancomycin has been discontinued and the patient is put on ceftriaxone for UTI NPO We will add Flagyl orally to cover anaerobes Depression: Has been voluntarily admitted to the [facility] 3-4 years ago for severe depression Takes Paroxetine; hold Bottle was found empty next to patient UDS + for Opioids and Benzos Psych consult placed -appreciate input and recommendation We will hold paroxetine for now Disposition: PCP: Dr. Thomas Code Status: Full Code VTE Prophylaxis: Has been on intravenous heparin for now Remains stable to be transferred to telemetry unit Admission and Anticipated Discharge Date Admission Date: September 05, 2022 Subjective 09/06/2022 The patient was seen and examined in the ICU She was found to be unresponsive on floor in the morning of admission by her and was brought into ER for further evaluation She remains confused and is not letting to examine her Expresses that she is not well and want to be left alone Review of Systems Review of Systems: Unobtainable due to cognitive status Physical Exam Physical Exam: Lying in bed and crying with occasional agitation Constitutional: + ill appearing and average body habitus Eyes: PERRL, conjunctivae normal, anicteric sclerae ENMT: external ear and nose normal, oropharynx normal Neck: trachea midline, no thyromegaly Respiratory: no respiratory distress Auscultation: + diminished lung sounds and + crackles (Occasional crackles in the right side) Cardiovascular: Rate/Rhythm: regular rate and regular rhythm; not tachycardic Heart Sounds: normal S1 and normal S2; no murmur Extremities: no edema Gastrointestinal (Abdomen): Inspection/Auscultation: normal bowel sounds; abdomen not distended Percussion/Palpation: abdomen soft; abdomen nontender Musculoskeletal: No acute arthritis involving any joint Neurologic: Alert and awake. Pleasantly confused. wants to be left alone. Moving all limbs. Generally weak Lymphatic: no cervical or axillary lymphadenopathy Results & Data Results & Data Vital Signs (Past 12 Hours) Vital Signs Temp Pulse Resp BP Pulse Ox O2 Del Method 09/06/22 13:01 90 16 09/06/22 13:01 139/94 09/06/22 13:00 90 21 09/06/22 12:00 89 21 96 09/06/22 12:00 137/91 09/06/22 11:31 158/81 H 09/06/22 11:31 95 H 17 95 09/06/22 11:21 120/88 09/06/22 11:21 89 22 96 09/06/22 11:10 109 H 97 09/06/22 11:10 152/72 H 09/06/22 11:00 146 H 25 H 93 09/06/22 10:51 157 H 23 92 09/06/22 10:51 154/87 H 09/06/22 10:00 108 H 20 94 09/06/22 10:00 134/84 09/06/22 09:00 121 H 18 94 09/06/22 09:00 168/105 H 09/06/22 08:00 66 12 94 09/06/22 08:00 115/67 09/06/22 07:00 104 H 22 95 09/06/22 07:00 158/79 H 09/06/22 11:09 150 H 154/87 H 09/06/22 07:59 Room Air 09/06/22 06:00 37.3 C 96 H 24 144/83 H 94 Room Air 09/06/22 05:39 102 H 18 153/111 H 94 09/06/22 05:00 101 H 16 175/110 H 94 09/06/22 04:00 98 H 22 146/89 H 95 Room Air Laboratory Results Short CBC 09/05/22 09/06/22 Range/Units 17:28 04:20 WBC 10.44 7.92 (4.8-10.8) K/ul Hgb 17.2 H 13.9 D (12.0-16.0) g/dl Hct 52.0 H 42.3 (37.0-47.0) % Plt Count 168 126 L (130-400) K/uL BMP 09/05/22 09/06/22 17:28 04:20 Sodium 141 143 Potassium 5.3 H 4.0 D Chloride 101 109 H Carbon Dioxide 32 28 BUN 37 H 24 H Creatinine 0.75 0.42 L D Glucose 162 H 96 Calcium 10.3 8.8 Cardiac Enzymes 09/05/22 09/06/22 Range/Units 18:17 12:28 Total Creatine Kinase 1848 H 2995 H (26-192) U/L Liver Function 09/05/22 09/06/22 Range/Units 17:28 04:20 Total Bilirubin 0.7 0.7 (0.2-1.0) mg/dl Direct Bilirubin 0.1 (0-0.2) mg/dl AST 101 H 117 H (13-39) U/L ALT 53 H 53 H (7-52) U/L Alkaline Phosphatase 66 50 (34-104) U/L Albumin 4.4 3.4 (3.4-5.0) gm/dl Urine 09/05/22 09/05/22 Range/Units 17:39 22:30 Urine Color Dark Yellow Yellow Urine Appearance Cloudy A Cloudy A (Clear) Urine pH 5.5 6.0 (4.5-7.5) Ur Specific [place] 1.026 1.028 (1.000-1.030) Urine Protein 2+ H 2+ H (Negative) Urine Glucose (UA) Trace H Trace H (Negative) Medications Administered Current Inpatient Medications Acetaminophen (Acetaminophen 325 Mg Tab) 650 mg PO Q4H PRN PRN Reason: Pain or Fever Stop: 10/05/22 18:59 Al Hydrox/Mg Hydrox/Simethicone (Aluminum/Magnesium Susp 30 Ml Udc) 15 ml PO Q4H PRN PRN Reason: Dyspepsia Stop: 10/05/22 18:59 Dextrose (Dextrose 50% 50 Ml Syringe) 25 - 50 ml IV UD PRN; Protocol PRN Reason: Hypoglycemia Protocol Stop: 10/06/22 00:51 Glucagon (Glucagon For Inj 1 Mg Vial) 1 mg SQ UD PRN; Protocol PRN Reason: Hypoglycemia Protocol Stop: 10/06/22 00:51 Glucose (Glucose 10 Tab/Tube) 4 - 8 tab PO UD PRN; Protocol PRN Reason: Hypoglycemia Treatment Stop: 10/06/22 00:51 Glucose (Glucose 40% Gel 15 Gm Tube) 15 - 30 gm PO UD PRN; Protocol PRN Reason: Hypoglycemia Protocol Stop: 10/06/22 00:51 Thiamine HCl 100 mg/ Syringe 10 mls @ 2 mls/min IV QAM [facility] Stop: 10/06/22 08:59 Last Admin: 09/06/22 09:03 Dose: 2 mls/min Ceftriaxone Sodium 2,000 mg/ (Dextrose) 70 mls @ 140 mls/hr IV DAILY@1200 [facility] Stop: 09/13/22 11:59 Last Infusion: 09/06/22 13:00 Dose: Infused Heparin Sodium/Dextrose (Heparin Sodium/Dextrose) 25,000 units in 500 mls @ 18 mls/hr IV .Q24H [facility]; Protocol Stop: 10/06/22 11:29 Last Admin: 09/06/22 11:56 Dose: 900 units/hr, 18 mls/hr Magnesium Hydroxide (Magnesium Hydroxide Susp 30 Ml Udc) 30 ml PO Q12H PRN PRN Reason: Constipation Stop: 10/05/22 18:59 Metoprolol Tartrate (Metoprolol Tartrate 25 Mg Tab) 12.5 mg PO BID [facility] Stop: 10/06/22 11:29 Last Admin: 09/06/22 11:32 Dose: 12.5 mg Miscellaneous (Carbohydrates For Hypoglycemia ) 15 - 30 gm PO UD PRN PRN Reason: Hypoglycemia Protocol Stop: 10/06/22 00:51 Miscellaneous ([facility] Protocol For Hyperglycemia) 1 each N/A ACHS [facility] Stop: 09/08/22 07:29 Last Admin: 09/06/22 12:05 Dose: 1 each Miscellaneous ([facility] Electrolyte Replacement Protocol) 1 each N/A BID@06,18 [facility]; Protocol Stop: 09/13/22 05:59 Last Admin: 09/06/22 06:16 Dose: 1 each Naloxone HCl (Naloxone Hcl 0.4 Mg/1 Ml Vial/Carp) 0.4 mg IV Q15M PRN PRN Reason: somnulenece, hypercarbia, hypo Stop: 10/05/22 22:17 Ondansetron HCl (Ondansetron Inj 2 Mg/Ml 2 Ml Vial) 4 mg IV Q6H PRN PRN Reason: Nausea Stop: 10/05/22 18:59 Polyethylene Glycol (Polyethylene (Miralax) 17 Gm Pack) 17 gm PO DAILY PRN PRN Reason: Constipation Stop: 10/05/22 18:59
[2022-09-06 15:38] LABS: Partial Thromboplastin Ratio 1.2; Partial Thromboplastin Time 34.4 Seconds (21.0-31.0)
--- NOTE | 2022-09-06 15:53 | Cardiology Consultation ---
Date of Consultation September 06, 2022 Assessment & Plan (1) Paroxysmal atrial fibrillation: (2) Rhabdomyolysis: (3) Overdose: Plan Patient is a 71-year-old female with underlying history of severe depressive disorder who presented after extended period of unconsciousness possibly in association with multiple drug overdose Patient during resuscitation lapsed into atrial flutter with rapid ventricular response, returning to sinus rhythm after single dose of IV metoprolol. Episode incited by acute illness and associated stressors. Echocardiogram with preserved LV systolic function Recommendations: Given likely catecholamine mediated arrhythmia we will continue beta-yvan changing metoprolol to tartrate to metoprolol succinate 12.5 mg twice per day Agree with initial anticoagulation with IV heparin. EKG a.m. Treat underlying medical issue History of Present Illness Reason for Consultation: Paroxysmal atrial fibrillation/flutter Requesting Physician: Dr. Squires Attending Physician: Betty Squires MD History of Present Illness Patient is a 71-year-old female with underlying major depressive disorder presents now this admission with possible intentional multiple drug overdose. Suspected extended downtime with rhabdomyolysis possible sepsis. Patient poor historian unable to add additional details at this time This morning lapsed into A-fib flutter with rapid response. Return to sinus rhythm after single dose of IV metoprolol. Patient anticoagulated with heparin. Echocardiogram with preserved LV systolic function EKG on initial presentation sinus rhythm without QT prolongation or preexcitation Allergies Allergy/AdvReac Type Severity Reaction Status Date / Time Quinolones Allergy Severe DIZZY Verified 09/26/21 06:25 ANXIETY TINGLING IN ARMS Home Medications Medication Instructions Recorded Confirmed Type calcium 333 mg PO TID 09/03/21 09/26/21 History cholecalciferol (vitamin D3) 50 50 mcg PO QAM 09/03/21 09/26/21 History mcg (2,000 unit) tablet (Vitamin D3) paroxetine HCl 20 mg tablet 20 mg PO DAILY 09/05/22 09/05/22 History Patient History Medical History Anxiety hx Arthritis of left hip Aspiration pneumonia Depression hx History of anesthesia reaction "I woke up during surgery and they had to put me back under" Mood disorder hx Overdose Sepsis Unresponsiveness Surgical History History of esophagogastroduodenoscopy (EGD) History of lumbar surgery lumbar #5, 1995 Hx of colonoscopy Hx of total hip arthroplasty Lt. 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 Beliefs That Will Affect Care: None Current Living Situation: Alone Feels Safe at Home: Yes Assistive Devices: Glasses Review of Systems Review of Systems: Unobtainable due to cognitive status Physical Exam Constitutional: + ill appearing and + thin Neck: trachea midline, no thyromegaly Respiratory: normal respiratory effort, lungs clear to auscultation Cardiovascular: Rate/Rhythm: regular rate and regular rhythm Heart Sounds: normal S1 and normal S2; no murmur Vessels: no JVD Extremities: no edema Results & Data Vital Signs (Past 12 Hours) Vital Signs Temp Pulse Resp BP Pulse Ox O2 Del Method 09/06/22 13:01 90 16 09/06/22 13:01 139/94 09/06/22 13:00 90 21 09/06/22 12:00 89 21 96 09/06/22 12:00 137/91 09/06/22 11:31 158/81 H 09/06/22 11:31 95 H 17 95 09/06/22 11:21 120/88 09/06/22 11:21 89 22 96 09/06/22 11:10 109 H 97 09/06/22 11:10 152/72 H 09/06/22 11:00 146 H 25 H 93 09/06/22 10:51 157 H 23 92 09/06/22 10:51 154/87 H 09/06/22 10:00 108 H 20 94 09/06/22 10:00 134/84 09/06/22 09:00 121 H 18 94 09/06/22 09:00 168/105 H 09/06/22 08:00 66 12 94 09/06/22 08:00 115/67 09/06/22 07:00 104 H 22 95 09/06/22 07:00 158/79 H 09/06/22 11:09 150 H 154/87 H 09/06/22 07:59 Room Air 09/06/22 06:00 37.3 C 96 H 24 144/83 H 94 Room Air 09/06/22 05:39 102 H 18 153/111 H 94 09/06/22 05:00 101 H 16 175/110 H 94 09/06/22 04:00 98 H 22 146/89 H 95 Room Air Laboratory Results Laboratory Results - last 24 hr 09/05/22 09/05/22 09/05/22 17:28 17:28 17:28 WBC 10.44 RBC 5.75 H Hgb 17.2 H Hct 52.0 H MCV 90.4 MCH 29.9 MCHC 33.1 RDW Std Deviation 40.3 RDW Coeff of Mary 12.3 Plt Count 168 MPV 11.3 Immature Gran % (Auto) 0.5 Neut % (Auto) 89.3 Lymph % (Auto) 3.9 [place] % (Auto) 6.0 Eos % (Auto) 0.0 Baso % (Auto) 0.3 Neut # (Auto) 9.32 H Lymph # (Auto) 0.41 L [place] # (Auto) 0.63 H Eos # (Auto) 0.00 Baso # (Auto) 0.03 Immature Gran # (Auto) 0.05 PT 11.3 INR 1.0 APTT PTT Ratio VBG pH VBG pCO2 VBG pO2 VBG HCO3 VBG O2 Saturation VBG Base Excess Sodium 141 Potassium 5.3 H Chloride 101 Carbon Dioxide 32 Anion Gap 8 BUN 37 H Creatinine 0.75 Est Cr Clr Drug Dosing 55.6 Est GFR ( Amer) 92.9 Est GFR (Non-Af Amer) 80.2 BUN/Creatinine Ratio 49.3 H Glucose 162 H POC Glucose Lactate Calcium 10.3 Phosphorus Magnesium 2.8 H Total Bilirubin 0.7 Direct Bilirubin 0.1 AST 101 H ALT 53 H Alkaline Phosphatase 66 Total Creatine Kinase Troponin I High Sens 11.5 Total Protein 8.1 Albumin 4.4 Globulin Albumin/Globulin Ratio Procalcitonin TSH Urine Color Urine Appearance Urine pH Ur Specific [place] Urine Protein Urine Glucose (UA) Urine Ketones Urine Blood Urine Nitrite Urine Bilirubin Urine Urobilinogen Ur Leukocyte Esterase Urine WBC (Auto) Urine RBC (Auto) U Hyaline Cast (Auto) U Epithel Cells (Auto) Urine Bacteria (Auto) Urine Mucus Nasal Screen MRSA (PCR) Salicylates Urine Opiates Screen U Codeine Confrm GC/MS Ur Morphine (GC/MS) Ur Hydrocodone (GC/MS) Ur Norhydrocodone Ur Noroxycodone Urine Oxycodone (GC/MS) U Oxymorphone GC/MS Ur Methadone, Qual Ur Hydromorphone (GC/MS) Acetaminophen Urine Barbiturates Ur Phencyclidine (PCP) U Amphetamin/Meth Scrn MDMA (Ecstasy) Screen U OH-Alprazolam Confrm U Benzodiazepines Scrn 7-Amino Clonazepam Ur Nordiazepam Confirm U OH-ethylflurazepam U Lorazepam Cnf GC/MS U Oxazepam Confm GC/MS Ur Temazepam Confirm U OH-Triazolam Confirm U OH-Midazolam Confirm Ur Cocaine Metabolite U Marijuana (THC) Screen Drug Screen Comment Ethyl Alcohol mg/dL SARS-CoV-2 (PCR) Influenza Type A (PCR) Influenza Type B (PCR) RSV (RT-PCR) 09/05/22 09/05/22 09/05/22 17:28 17:28 17:39 WBC RBC Hgb Hct MCV MCH MCHC RDW Std Deviation RDW Coeff of Mary Plt Count MPV Immature Gran % (Auto) Neut % (Auto) Lymph % (Auto) [place] % (Auto) Eos % (Auto) Baso % (Auto) Neut # (Auto) Lymph # (Auto) [place] # (Auto) Eos # (Auto) Baso # (Auto) Immature Gran # (Auto) PT INR APTT PTT Ratio VBG pH VBG pCO2 VBG pO2 VBG HCO3 VBG O2 Saturation VBG Base Excess Sodium Potassium Chloride Carbon Dioxide Anion Gap BUN Creatinine Est Cr Clr Drug Dosing Est GFR ( Amer) Est GFR (Non-Af Amer) BUN/Creatinine Ratio Glucose POC Glucose Lactate Calcium Phosphorus Magnesium Total Bilirubin Direct Bilirubin AST ALT Alkaline Phosphatase Total Creatine Kinase Troponin I High Sens Total Protein Albumin Globulin Albumin/Globulin Ratio Procalcitonin 1.77 H TSH Urine Color Dark Yellow Urine Appearance Cloudy A Urine pH 5.5 Ur Specific [place] 1.026 Urine Protein 2+ H Urine Glucose (UA) Trace H Urine Ketones 1+ H Urine Blood 3+ H Urine Nitrite Negative Urine Bilirubin Negative Urine Urobilinogen Negative Ur Leukocyte Esterase 1+ H Urine WBC (Auto) >30 H Urine RBC (Auto) 0-4 U Hyaline Cast (Auto) 0 U Epithel Cells (Auto) 0-5 Urine Bacteria (Auto) 4+ H Urine Mucus Nasal Screen MRSA (PCR) Salicylates < 3.0 L Urine Opiates Screen U Codeine Confrm GC/MS Ur Morphine (GC/MS) Ur Hydrocodone (GC/MS) Ur Norhydrocodone Ur Noroxycodone Urine Oxycodone (GC/MS) U Oxymorphone GC/MS Ur Methadone, Qual Ur Hydromorphone (GC/MS) Acetaminophen < 3 L Urine Barbiturates Ur Phencyclidine (PCP) U Amphetamin/Meth Scrn MDMA (Ecstasy) Screen U OH-Alprazolam Confrm U Benzodiazepines Scrn 7-Amino Clonazepam Ur Nordiazepam Confirm U OH-ethylflurazepam U Lorazepam Cnf GC/MS U Oxazepam Confm GC/MS Ur Temazepam Confirm U OH-Triazolam Confirm U OH-Midazolam Confirm Ur Cocaine Metabolite U Marijuana (THC) Screen Drug Screen Comment Ethyl Alcohol mg/dL SARS-CoV-2 (PCR) Influenza Type A (PCR) Influenza Type B (PCR) RSV (RT-PCR) 09/05/22 09/05/22 09/05/22 17:39 17:39 18:06 WBC RBC Hgb Hct MCV MCH MCHC RDW Std Deviation RDW Coeff of Mary Plt Count MPV Immature Gran % (Auto) Neut % (Auto) Lymph % (Auto) [place] % (Auto) Eos % (Auto) Baso % (Auto) Neut # (Auto) Lymph # (Auto) [place] # (Auto) Eos # (Auto) Baso # (Auto) Immature Gran # (Auto) PT INR APTT PTT Ratio VBG pH VBG pCO2 VBG pO2 VBG HCO3 VBG O2 Saturation VBG Base Excess Sodium Potassium Chloride Carbon Dioxide Anion Gap BUN Creatinine Est Cr Clr Drug Dosing Est GFR ( Amer) Est GFR (Non-Af Amer) BUN/Creatinine Ratio Glucose POC Glucose Lactate Calcium Phosphorus Magnesium Total Bilirubin Direct Bilirubin AST ALT Alkaline Phosphatase Total Creatine Kinase Troponin I High Sens Total Protein Albumin Globulin Albumin/Globulin Ratio Procalcitonin TSH Urine Color Urine Appearance Urine pH Ur Specific [place] Urine Protein Urine Glucose (UA) Urine Ketones Urine Blood Urine Nitrite Urine Bilirubin Urine Urobilinogen Ur Leukocyte Esterase Urine WBC (Auto) Urine RBC (Auto) U Hyaline Cast (Auto) U Epithel Cells (Auto) Urine Bacteria (Auto) Urine Mucus Nasal Screen MRSA (PCR) Salicylates Urine Opiates Screen Pos H U Codeine Confrm GC/MS Pending Ur Morphine (GC/MS) Pending Ur Hydrocodone (GC/MS) Pending Ur Norhydrocodone Pending Ur Noroxycodone Pending Urine Oxycodone (GC/MS) Pending U Oxymorphone GC/MS Pending Ur Methadone, Qual Neg Ur Hydromorphone (GC/MS) Pending Acetaminophen Urine Barbiturates Neg Ur Phencyclidine (PCP) Neg U Amphetamin/Meth Scrn Neg MDMA (Ecstasy) Screen Neg U OH-Alprazolam Confrm Pending U Benzodiazepines Scrn Pos H 7-Amino Clonazepam Pending Ur Nordiazepam Confirm Pending U OH-ethylflurazepam Pending U Lorazepam Cnf GC/MS Pending U Oxazepam Confm GC/MS Pending Ur Temazepam Confirm Pending U OH-Triazolam Confirm Pending U OH-Midazolam Confirm Pending Ur Cocaine Metabolite Neg U Marijuana (THC) Screen Neg Drug Screen Comment Pending Ethyl Alcohol mg/dL SARS-CoV-2 (PCR) NEGATIVE Influenza Type A (PCR) Negative Influenza Type B (PCR) Negative RSV (RT-PCR) Negative 09/05/22 09/05/22 09/05/22 18:17 18:17 18:17 WBC RBC Hgb Hct MCV MCH MCHC RDW Std Deviation RDW Coeff of Mary Plt Count MPV Immature Gran % (Auto) Neut % (Auto) Lymph % (Auto) [place] % (Auto) Eos % (Auto) Baso % (Auto) Neut # (Auto) Lymph # (Auto) [place] # (Auto) Eos # (Auto) Baso # (Auto) Immature Gran # (Auto) PT INR APTT PTT Ratio VBG pH 7.29 L VBG pCO2 65 H VBG pO2 38 VBG HCO3 31 VBG O2 Saturation 63.5 VBG Base Excess 2.8 Sodium Potassium Chloride Carbon Dioxide Anion Gap BUN Creatinine Est Cr Clr Drug Dosing Est GFR ( Amer) Est GFR (Non-Af Amer) BUN/Creatinine Ratio Glucose POC Glucose Lactate 4.3 H* Calcium Phosphorus Magnesium Total Bilirubin Direct Bilirubin AST ALT Alkaline Phosphatase Total Creatine Kinase Troponin I High Sens Total Protein Albumin Globulin Albumin/Globulin Ratio Procalcitonin TSH Urine Color Urine Appearance Urine pH Ur Specific [place] Urine Protein Urine Glucose (UA) Urine Ketones Urine Blood Urine Nitrite Urine Bilirubin Urine Urobilinogen Ur Leukocyte Esterase Urine WBC (Auto) Urine RBC (Auto) U Hyaline Cast (Auto) U Epithel Cells (Auto) Urine Bacteria (Auto) Urine Mucus Nasal Screen MRSA (PCR) Salicylates Urine Opiates Screen U Codeine Confrm GC/MS Ur Morphine (GC/MS) Ur Hydrocodone (GC/MS) Ur Norhydrocodone Ur Noroxycodone Urine Oxycodone (GC/MS) U Oxymorphone GC/MS Ur Methadone, Qual Ur Hydromorphone (GC/MS) Acetaminophen Urine Barbiturates Ur Phencyclidine (PCP) U Amphetamin/Meth Scrn MDMA (Ecstasy) Screen U OH-Alprazolam Confrm U Benzodiazepines Scrn 7-Amino Clonazepam Ur Nordiazepam Confirm U OH-ethylflurazepam U Lorazepam Cnf GC/MS U Oxazepam Confm GC/MS Ur Temazepam Confirm U OH-Triazolam Confirm U OH-Midazolam Confirm Ur Cocaine Metabolite U Marijuana (THC) Screen Drug Screen Comment Ethyl Alcohol mg/dL < 10.0 SARS-CoV-2 (PCR) Influenza Type A (PCR) Influenza Type B (PCR) RSV (RT-PCR) 09/05/22 09/05/22 09/05/22 18:17 20:20 21:11 WBC RBC Hgb Hct MCV MCH MCHC RDW Std Deviation RDW Coeff of Mary Plt Count MPV Immature Gran % (Auto) Neut % (Auto) Lymph % (Auto) [place] % (Auto) Eos % (Auto) Baso % (Auto) Neut # (Auto) Lymph # (Auto) [place] # (Auto) Eos # (Auto) Baso # (Auto) Immature Gran # (Auto) PT INR APTT PTT Ratio VBG pH 7.34 L VBG pCO2 52 H VBG pO2 29 VBG HCO3 28 VBG O2 Saturation 62.6 VBG Base Excess 1.4 Sodium Potassium Chloride Carbon Dioxide Anion Gap BUN Creatinine Est Cr Clr Drug Dosing Est GFR ( Amer) Est GFR (Non-Af Amer) BUN/Creatinine Ratio Glucose POC Glucose Lactate 3.4 H* Calcium Phosphorus Magnesium Total Bilirubin Direct Bilirubin AST ALT Alkaline Phosphatase Total Creatine Kinase 1848 H Troponin I High Sens Total Protein Albumin Globulin Albumin/Globulin Ratio Procalcitonin TSH Urine Color Urine Appearance Urine pH Ur Specific [place] Urine Protein Urine Glucose (UA) Urine Ketones Urine Blood Urine Nitrite Urine Bilirubin Urine Urobilinogen Ur Leukocyte Esterase Urine WBC (Auto) Urine RBC (Auto) U Hyaline Cast (Auto) U Epithel Cells (Auto) Urine Bacteria (Auto) Urine Mucus Nasal Screen MRSA (PCR) Salicylates Urine Opiates Screen U Codeine Confrm GC/MS Ur Morphine (GC/MS) Ur Hydrocodone (GC/MS) Ur Norhydrocodone Ur Noroxycodone Urine Oxycodone (GC/MS) U Oxymorphone GC/MS Ur Methadone, Qual Ur Hydromorphone (GC/MS) Acetaminophen Urine Barbiturates Ur Phencyclidine (PCP) U Amphetamin/Meth Scrn MDMA (Ecstasy) Screen U OH-Alprazolam Confrm U Benzodiazepines Scrn 7-Amino Clonazepam Ur Nordiazepam Confirm U OH-ethylflurazepam U Lorazepam Cnf GC/MS U Oxazepam Confm GC/MS Ur Temazepam Confirm U OH-Triazolam Confirm U OH-Midazolam Confirm Ur Cocaine Metabolite U Marijuana (THC) Screen Drug Screen Comment Ethyl Alcohol mg/dL SARS-CoV-2 (PCR) Influenza Type A (PCR) Influenza Type B (PCR) RSV (RT-PCR) 09/05/22 09/05/22 09/05/22 21:11 21:56 22:10 WBC RBC Hgb Hct MCV MCH MCHC RDW Std Deviation RDW Coeff of Mary Plt Count MPV Immature Gran % (Auto) Neut % (Auto) Lymph % (Auto) [place] % (Auto) Eos % (Auto) Baso % (Auto) Neut # (Auto) Lymph # (Auto) [place] # (Auto) Eos # (Auto) Baso # (Auto) Immature Gran # (Auto) PT INR APTT PTT Ratio VBG pH VBG pCO2 VBG pO2 VBG HCO3 VBG O2 Saturation VBG Base Excess Sodium Potassium Chloride Carbon Dioxide Anion Gap BUN Creatinine Est Cr Clr Drug Dosing Est GFR ( Amer) Est GFR (Non-Af Amer) BUN/Creatinine Ratio Glucose POC Glucose 109 H Lactate 2.3 H* Calcium Phosphorus Magnesium Total Bilirubin Direct Bilirubin AST ALT Alkaline Phosphatase Total Creatine Kinase Troponin I High Sens Total Protein Albumin Globulin Albumin/Globulin Ratio Procalcitonin TSH Urine Color Urine Appearance Urine pH Ur Specific [place] Urine Protein Urine Glucose (UA) Urine Ketones Urine Blood Urine Nitrite Urine Bilirubin Urine Urobilinogen Ur Leukocyte Esterase Urine WBC (Auto) Urine RBC (Auto) U Hyaline Cast (Auto) U Epithel Cells (Auto) Urine Bacteria (Auto) Urine Mucus Nasal Screen MRSA (PCR) Negative Salicylates Urine Opiates Screen U Codeine Confrm GC/MS Ur Morphine (GC/MS) Ur Hydrocodone (GC/MS) Ur Norhydrocodone Ur Noroxycodone Urine Oxycodone (GC/MS) U Oxymorphone GC/MS Ur Methadone, Qual Ur Hydromorphone (GC/MS) Acetaminophen Urine Barbiturates Ur Phencyclidine (PCP) U Amphetamin/Meth Scrn MDMA (Ecstasy) Screen U OH-Alprazolam Confrm U Benzodiazepines Scrn 7-Amino Clonazepam Ur Nordiazepam Confirm U OH-ethylflurazepam U Lorazepam Cnf GC/MS U Oxazepam Confm GC/MS Ur Temazepam Confirm U OH-Triazolam Confirm U OH-Midazolam Confirm Ur Cocaine Metabolite U Marijuana (THC) Screen Drug Screen Comment Ethyl Alcohol mg/dL SARS-CoV-2 (PCR) Influenza Type A (PCR) Influenza Type B (PCR) RSV (RT-PCR) 09/05/22 09/05/22 09/05/22 22:30 23:06 23:06 WBC RBC Hgb Hct MCV MCH MCHC RDW Std Deviation RDW Coeff of Mary Plt Count MPV Immature Gran % (Auto) Neut % (Auto) Lymph % (Auto) [place] % (Auto) Eos % (Auto) Baso % (Auto) Neut # (Auto) Lymph # (Auto) [place] # (Auto) Eos # (Auto) Baso # (Auto) Immature Gran # (Auto) PT 11.5 INR 1.1 APTT PTT Ratio VBG pH VBG pCO2 VBG pO2 VBG HCO3 VBG O2 Saturation VBG Base Excess Sodium Potassium Chloride Carbon Dioxide Anion Gap BUN Creatinine Est Cr Clr Drug Dosing Est GFR ( Amer) Est GFR (Non-Af Amer) BUN/Creatinine Ratio Glucose POC Glucose Lactate 2.6 H* Calcium Phosphorus Magnesium Total Bilirubin Direct Bilirubin AST ALT Alkaline Phosphatase Total Creatine Kinase Troponin I High Sens Total Protein Albumin Globulin Albumin/Globulin Ratio Procalcitonin TSH Urine Color Yellow Urine Appearance Cloudy A Urine pH 6.0 Ur Specific [place] 1.028 Urine Protein 2+ H Urine Glucose (UA) Trace H Urine Ketones Trace H Urine Blood 3+ H Urine Nitrite Positive A Urine Bilirubin Negative Urine Urobilinogen Negative Ur Leukocyte Esterase 1+ H Urine WBC (Auto) >30 H Urine RBC (Auto) 10-30 H U Hyaline Cast (Auto) 1-5 U Epithel Cells (Auto) 5-10 H Urine Bacteria (Auto) Negative Urine Mucus Present A Nasal Screen MRSA (PCR) Salicylates Urine Opiates Screen U Codeine Confrm GC/MS Ur Morphine (GC/MS) Ur Hydrocodone (GC/MS) Ur Norhydrocodone Ur Noroxycodone Urine Oxycodone (GC/MS) U Oxymorphone GC/MS Ur Methadone, Qual Ur Hydromorphone (GC/MS) Acetaminophen Urine Barbiturates Ur Phencyclidine (PCP) U Amphetamin/Meth Scrn MDMA (Ecstasy) Screen U OH-Alprazolam Confrm U Benzodiazepines Scrn 7-Amino Clonazepam Ur Nordiazepam Confirm U OH-ethylflurazepam U Lorazepam Cnf GC/MS U Oxazepam Confm GC/MS Ur Temazepam Confirm U OH-Triazolam Confirm U OH-Midazolam Confirm Ur Cocaine Metabolite U Marijuana (THC) Screen Drug Screen Comment Ethyl Alcohol mg/dL SARS-CoV-2 (PCR) Influenza Type A (PCR) Influenza Type B (PCR) RSV (RT-PCR) 09/06/22 09/06/22 09/06/22 01:04 04:05 04:20 WBC 7.92 RBC 4.65 Hgb 13.9 D Hct 42.3 MCV 91.0 MCH 29.9 MCHC 32.9 RDW Std Deviation 40.8 RDW Coeff of Mary 12.3 Plt Count 126 L MPV 10.9 Immature Gran % (Auto) Neut % (Auto) Lymph % (Auto) [place] % (Auto) Eos % (Auto) Baso % (Auto) Neut # (Auto) Lymph # (Auto) [place] # (Auto) Eos # (Auto) Baso # (Auto) Immature Gran # (Auto) PT INR APTT PTT Ratio VBG pH VBG pCO2 VBG pO2 VBG HCO3 VBG O2 Saturation VBG Base Excess Sodium Potassium Chloride Carbon Dioxide Anion Gap BUN Creatinine Est Cr Clr Drug Dosing Est GFR ( Amer) Est GFR (Non-Af Amer) BUN/Creatinine Ratio Glucose POC Glucose 104 H Lactate 3.4 H* Calcium Phosphorus Magnesium Total Bilirubin Direct Bilirubin AST ALT Alkaline Phosphatase Total Creatine Kinase Troponin I High Sens Total Protein Albumin Globulin Albumin/Globulin Ratio Procalcitonin TSH Urine Color Urine Appearance Urine pH Ur Specific [place] Urine Protein Urine Glucose (UA) Urine Ketones Urine Blood Urine Nitrite Urine Bilirubin Urine Urobilinogen Ur Leukocyte Esterase Urine WBC (Auto) Urine RBC (Auto) U Hyaline Cast (Auto) U Epithel Cells (Auto) Urine Bacteria (Auto) Urine Mucus Nasal Screen MRSA (PCR) Salicylates Urine Opiates Screen U Codeine Confrm GC/MS Ur Morphine (GC/MS) Ur Hydrocodone (GC/MS) Ur Norhydrocodone Ur Noroxycodone Urine Oxycodone (GC/MS) U Oxymorphone GC/MS Ur Methadone, Qual Ur Hydromorphone (GC/MS) Acetaminophen Urine Barbiturates Ur Phencyclidine (PCP) U Amphetamin/Meth Scrn MDMA (Ecstasy) Screen U OH-Alprazolam Confrm U Benzodiazepines Scrn 7-Amino Clonazepam Ur Nordiazepam Confirm U OH-ethylflurazepam U Lorazepam Cnf GC/MS U Oxazepam Confm GC/MS Ur Temazepam Confirm U OH-Triazolam Confirm U OH-Midazolam Confirm Ur Cocaine Metabolite U Marijuana (THC) Screen Drug Screen Comment Ethyl Alcohol mg/dL SARS-CoV-2 (PCR) Influenza Type A (PCR) Influenza Type B (PCR) RSV (RT-PCR) 09/06/22 09/06/22 09/06/22 04:20 04:20 06:49 WBC RBC Hgb Hct MCV MCH MCHC RDW Std Deviation RDW Coeff of Mary Plt Count MPV Immature Gran % (Auto) Neut % (Auto) Lymph % (Auto) [place] % (Auto) Eos % (Auto) Baso % (Auto) Neut # (Auto) Lymph # (Auto) [place] # (Auto) Eos # (Auto) Baso # (Auto) Immature Gran # (Auto) PT INR APTT PTT Ratio VBG pH VBG pCO2 VBG pO2 VBG HCO3 VBG O2 Saturation VBG Base Excess Sodium 143 Potassium 4.0 D Chloride 109 H Carbon Dioxide 28 Anion Gap 6 BUN 24 H Creatinine 0.42 L D Est Cr Clr Drug Dosing 97.4 Est GFR ( Amer) 119.5 Est GFR (Non-Af Amer) 103.1 BUN/Creatinine Ratio 57.1 H Glucose 96 POC Glucose Lactate 3.3 H* 2.8 H* Calcium 8.8 Phosphorus 1.7 L Magnesium 2.1 Total Bilirubin 0.7 Direct Bilirubin AST 117 H ALT 53 H Alkaline Phosphatase 50 Total Creatine Kinase Troponin I High Sens Total Protein 6.0 D Albumin 3.4 Globulin 2.6 Albumin/Globulin Ratio 1.3 Procalcitonin TSH Urine Color Urine Appearance Urine pH Ur Specific [place] Urine Protein Urine Glucose (UA) Urine Ketones Urine Blood Urine Nitrite Urine Bilirubin Urine Urobilinogen Ur Leukocyte Esterase Urine WBC (Auto) Urine RBC (Auto) U Hyaline Cast (Auto) U Epithel Cells (Auto) Urine Bacteria (Auto) Urine Mucus Nasal Screen MRSA (PCR) Salicylates Urine Opiates Screen U Codeine Confrm GC/MS Ur Morphine (GC/MS) Ur Hydrocodone (GC/MS) Ur Norhydrocodone Ur Noroxycodone Urine Oxycodone (GC/MS) U Oxymorphone GC/MS Ur Methadone, Qual Ur Hydromorphone (GC/MS) Acetaminophen Urine Barbiturates Ur Phencyclidine (PCP) U Amphetamin/Meth Scrn MDMA (Ecstasy) Screen U OH-Alprazolam Confrm U Benzodiazepines Scrn 7-Amino Clonazepam Ur Nordiazepam Confirm U OH-ethylflurazepam U Lorazepam Cnf GC/MS U Oxazepam Confm GC/MS Ur Temazepam Confirm U OH-Triazolam Confirm U OH-Midazolam Confirm Ur Cocaine Metabolite U Marijuana (THC) Screen Drug Screen Comment Ethyl Alcohol mg/dL SARS-CoV-2 (PCR) Influenza Type A (PCR) Influenza Type B (PCR) RSV (RT-PCR) 09/06/22 09/06/22 09/06/22 12:04 12:28 12:28 WBC RBC Hgb Hct MCV MCH MCHC RDW Std Deviation RDW Coeff of Mary Plt Count MPV Immature Gran % (Auto) Neut % (Auto) Lymph % (Auto) [place] % (Auto) Eos % (Auto) Baso % (Auto) Neut # (Auto) Lymph # (Auto) [place] # (Auto) Eos # (Auto) Baso # (Auto) Immature Gran # (Auto) PT INR APTT PTT Ratio VBG pH VBG pCO2 VBG pO2 VBG HCO3 VBG O2 Saturation VBG Base Excess Sodium Potassium Chloride Carbon Dioxide Anion Gap BUN Creatinine Est Cr Clr Drug Dosing Est GFR ( Amer) Est GFR (Non-Af Amer) BUN/Creatinine Ratio Glucose POC Glucose 92 Lactate Calcium Phosphorus Magnesium Total Bilirubin Direct Bilirubin AST ALT Alkaline Phosphatase Total Creatine Kinase 2995 H Troponin I High Sens Total Protein Albumin Globulin Albumin/Globulin Ratio Procalcitonin TSH 4.005 Urine Color Urine Appearance Urine pH Ur Specific [place] Urine Protein Urine Glucose (UA) Urine Ketones Urine Blood Urine Nitrite Urine Bilirubin Urine Urobilinogen Ur Leukocyte Esterase Urine WBC (Auto) Urine RBC (Auto) U Hyaline Cast (Auto) U Epithel Cells (Auto) Urine Bacteria (Auto) Urine Mucus Nasal Screen MRSA (PCR) Salicylates Urine Opiates Screen U Codeine Confrm GC/MS Ur Morphine (GC/MS) Ur Hydrocodone (GC/MS) Ur Norhydrocodone Ur Noroxycodone Urine Oxycodone (GC/MS) U Oxymorphone GC/MS Ur Methadone, Qual Ur Hydromorphone (GC/MS) Acetaminophen Urine Barbiturates Ur Phencyclidine (PCP) U Amphetamin/Meth Scrn MDMA (Ecstasy) Screen U OH-Alprazolam Confrm U Benzodiazepines Scrn 7-Amino Clonazepam Ur Nordiazepam Confirm U OH-ethylflurazepam U Lorazepam Cnf GC/MS U Oxazepam Confm GC/MS Ur Temazepam Confirm U OH-Triazolam Confirm U OH-Midazolam Confirm Ur Cocaine Metabolite U Marijuana (THC) Screen Drug Screen Comment Ethyl Alcohol mg/dL SARS-CoV-2 (PCR) Influenza Type A (PCR) Influenza Type B (PCR) RSV (RT-PCR) 09/06/22 14:47 WBC RBC Hgb Hct MCV MCH MCHC RDW Std Deviation RDW Coeff of Mary Plt Count MPV Immature Gran % (Auto) Neut % (Auto) Lymph % (Auto) [place] % (Auto) Eos % (Auto) Baso % (Auto) Neut # (Auto) Lymph # (Auto) [place] # (Auto) Eos # (Auto) Baso # (Auto) Immature Gran # (Auto) PT INR APTT 34.4 H PTT Ratio 1.2 VBG pH VBG pCO2 VBG pO2 VBG HCO3 VBG O2 Saturation VBG Base Excess Sodium Potassium Chloride Carbon Dioxide Anion Gap BUN Creatinine Est Cr Clr Drug Dosing Est GFR ( Amer) Est GFR (Non-Af Amer) BUN/Creatinine Ratio Glucose POC Glucose Lactate Calcium Phosphorus Magnesium Total Bilirubin Direct Bilirubin AST ALT Alkaline Phosphatase Total Creatine Kinase Troponin I High Sens Total Protein Albumin Globulin Albumin/Globulin Ratio Procalcitonin TSH Urine Color Urine Appearance Urine pH Ur Specific [place] Urine Protein Urine Glucose (UA) Urine Ketones Urine Blood Urine Nitrite Urine Bilirubin Urine Urobilinogen Ur Leukocyte Esterase Urine WBC (Auto) Urine RBC (Auto) U Hyaline Cast (Auto) U Epithel Cells (Auto) Urine Bacteria (Auto) Urine Mucus Nasal Screen MRSA (PCR) Salicylates Urine Opiates Screen U Codeine Confrm GC/MS Ur Morphine (GC/MS) Ur Hydrocodone (GC/MS) Ur Norhydrocodone Ur Noroxycodone Urine Oxycodone (GC/MS) U Oxymorphone GC/MS Ur Methadone, Qual Ur Hydromorphone (GC/MS) Acetaminophen Urine Barbiturates Ur Phencyclidine (PCP) U Amphetamin/Meth Scrn MDMA (Ecstasy) Screen U OH-Alprazolam Confrm U Benzodiazepines Scrn 7-Amino Clonazepam Ur Nordiazepam Confirm U OH-ethylflurazepam U Lorazepam Cnf GC/MS U Oxazepam Confm GC/MS Ur Temazepam Confirm U OH-Triazolam Confirm U OH-Midazolam Confirm Ur Cocaine Metabolite U Marijuana (THC) Screen Drug Screen Comment Ethyl Alcohol mg/dL SARS-CoV-2 (PCR) Influenza Type A (PCR) Influenza Type B (PCR) RSV (RT-PCR) Diagnostic Findings Echocardiogram 09/06/2022 Normal left-ventricular size thickness and function and no significant valvular disease
[2022-09-06] MEDS: metroNIDAZOLE 500 MG/100 ML BAG IV SCH ×2 (16:41→23:36)
--- NOTE | 2022-09-06 17:23 | Electrocardiogram Report ---
Test Reason : Blood Pressure : / mmHG Vent. Rate : 095 BPM Atrial Rate : 095 BPM P-R Int : 128 ms QRS Dur : 080 ms QT Int : 336 ms P-R-T Axes : 078 083 069 degrees QTc Int : 422 ms Poor data quality, interpretation may be adversely affected Normal sinus rhythm Normal ECG When compared with ECG of 06-OCT-2007 07:58, No significant change was found Confirmed by Jw Leal ([id number]) on 09/06/2022 5:23:48 PM Referred By: REFERRED SELF Confirmed By:Jw Leal
--- NOTE | 2022-09-06 18:05 | Electrocardiogram Report ---
Test Reason : Blood Pressure : / mmHG Vent. Rate : 142 BPM Atrial Rate : 326 BPM P-R Int : 000 ms QRS Dur : 080 ms QT Int : 346 ms P-R-T Axes : 000 091 071 degrees QTc Int : 532 ms Sinus rhythm with onset of Atrial fibrillation with premature ventricular or aberrantly conducted co mplexes Rightward axis Nonspecific ST abnormality Abnormal ECG When compared with ECG of 05-SEP-2022 17:29, (unconfirmed) Atrial fibrillation is now present Vent. rate has increased BY 47 BPM Confirmed by Jw Leal ([id number]) on 09/06/2022 6:04:56 PM Referred By: REFERRED SELF Confirmed By:Jw Leal
[2022-09-06 19:21] LABS: Partial Thromboplastin Ratio 1.5
[2022-09-06] MEDS: METOPROLOL SUCC 25MG EXT REL TAB PO SCH (20:35)
[2022-09-06 22:53] LABS: Partial Thromboplastin Time 43.3 Seconds (21.0-31.0)
[2022-09-06] MEDS ORDERED: OLANZapine 10 MG/2.1 ML SDV IM PRN (23:11)
[2022-09-06] MEDS ORDERED: OLANZapine 10 MG/2.1 ML SDV IM STA (23:11)
[2022-09-07 08:04] LABS: Albumin Globulin Ratio 1.2 (0.9-2); Albumin Level 3.3 gm/dl (3.4-5.0); BUN Creatinine Ratio 29.2 (10-20); Bilirubin,Total 0.7 mg/dl (0.2-1.0); Calcium 8.6 mg/dl (8.6-10.3); Creatinine Clr Calc Pharmacy 85.4 ml/min; Est GFR (African American) 114.4 ml/min; Est GFR (Non-African American) 98.7 ml/min; Globulin 2.7 gm/dl (2.5-4.0); Potassium 2.7 mmol/L (3.5-5.1)
[2022-09-07 08:09] LABS: Partial Thromboplastin Ratio 1.8
[2022-09-07 08:13] LABS: Partial Thromboplastin Time 49.7 Seconds (21.0-31.0)
[2022-09-07] MEDS ORDERED: POTASSIUM PHOS 3 MMOL/1 ML INFUSION IV STA (08:30)
[2022-09-07] MEDS ORDERED: POTASSIUM CHLORIDE CRTAB 20 MEQ TABCR PO STA (08:30)
[2022-09-07] MEDS ORDERED: POTASSIUM PHOSPHATE 30 MMOL in SODIUM CHLORIDE 0.9% 500 ML IV ONE (09:00)
[2022-09-07] MEDS: FOLIC ACID 1 MG in SYRINGE 9.8 ML IV SCH (09:28)
[2022-09-07] MEDS: METOPROLOL SUCC 25MG EXT REL TAB PO SCH ×2 (09:29→20:45)
--- NOTE | 2022-09-07 09:49 | Cardiology Progress Note ---
Date of Service September 07, 2022 Assessment & Plan (1) Paroxysmal atrial fibrillation: (2) Rhabdomyolysis: (3) Overdose: Plan Patient is a 71-year-old female with underlying history of severe depressive disorder who presented after extended period of unconsciousness possibly in asso ciation with multiple drug overdose Patient during resuscitation lapsed into atrial flutter with rapid ventricular response, returning to sinus rhythm after single dose of IV metoprolol. Episode incited by acute illness and associated stressors. Echocardiogram with preserved LV systolic function Recommendations: Given likely catecholamine mediated arrhythmia we will continue beta-yvan changing metoprolol to tartrate to metoprolol succinate 12.5 mg twice per day Agree with initial anticoagulation with IV heparin. EKG a.m. Treat underlying medical issue 09/07/2022 No further atrial arrhythmias on telemetry, EKG normal Impression: Paroxysmal atrial fibrillation flutter incited by acute illness and metabolic derangement Recommendations: Continue metoprolol succinate 12.5 mg twice per day Replete electrolytes Continue IV heparin until electrolytes improved. Patient high risk for long-term anticoagulation and and current episode has inciting cause. Would discontinue once above Cardiology will sign off contact with questions Admission and Anticipated Discharge Date Admission Date: September 05, 2022 Subjective Patient seen and examined, chart, telemetry, medications reviewed No further atrial fibrillation flutter on telemetry Patient poorly cooperative and offers no history EKG 09/07/2022 Normal sinus rhythm with normal tracing at 94 bpm Review of Systems Review of Systems: Unobtainable due to mental health condition Physical Exam Constitutional: + ill appearing and + thin ENMT: Mouth dry Neck: trachea midline, no thyromegaly Respiratory: normal respiratory effort, lungs clear to auscultation Cardiovascular: Rate/Rhythm: regular rate and regular rhythm Heart Sounds: normal S1 and normal S2; no murmur Vessels: no JVD Extremities: no edema Gastrointestinal (Abdomen): normal bowel sounds, soft, nontender, no hepatosplenomegaly Results & Data Vital Signs (Past 12 Hours) Vital Signs Temp Pulse Pulse Resp BP Pulse Ox O2 Del Method 09/07/22 07:09 36.8 C 85 18 130/72 98 Room Air 09/07/22 03:55 37.1 C 98 H 20 132/77 98 Room Air 09/06/22 22:02 84 09/06/22 23:15 36.6 C 90 20 127/75 97 Room Air Laboratory Results Laboratory Results - last 24 hr 09/06/22 09/06/22 09/06/22 12:04 12:28 12:28 WBC RBC Hgb Hct MCV MCH MCHC Plt Count APTT PTT Ratio Sodium Potassium Chloride Carbon Dioxide Anion Gap BUN Creatinine Est Cr Clr Drug Dosing Est GFR ( Amer) Est GFR (Non-Af Amer) BUN/Creatinine Ratio Glucose POC Glucose 92 Estimat Average Glucose Hemoglobin A1c Calcium Phosphorus Magnesium Total Bilirubin AST ALT Alkaline Phosphatase Total Creatine Kinase 2995 H Total Protein Albumin Globulin Albumin/Globulin Ratio TSH 4.005 09/06/22 09/06/22 09/06/22 14:47 18:12 23:31 WBC RBC Hgb Hct MCV MCH MCHC Plt Count APTT 34.4 H 43.3 H* PTT Ratio 1.2 1.5 Sodium Potassium Chloride Carbon Dioxide Anion Gap BUN Creatinine Est Cr Clr Drug Dosing Est GFR ( Amer) Est GFR (Non-Af Amer) BUN/Creatinine Ratio Glucose POC Glucose 90 Estimat Average Glucose Hemoglobin A1c Calcium Phosphorus Magnesium Total Bilirubin AST ALT Alkaline Phosphatase Total Creatine Kinase Total Protein Albumin Globulin Albumin/Globulin Ratio TSH 09/07/22 09/07/22 09/07/22 06:46 06:46 06:46 WBC Pending RBC Pending Hgb Pending Hct Pending MCV Pending MCH Pending MCHC Pending Plt Count Pending APTT PTT Ratio Sodium 143 Potassium 2.7 L D Chloride 106 Carbon Dioxide 27 Anion Gap 10 BUN 14 Creatinine 0.48 L Est Cr Clr Drug Dosing 85.4 Est GFR ( Amer) 114.4 Est GFR (Non-Af Amer) 98.7 BUN/Creatinine Ratio 29.2 H Glucose 87 POC Glucose Estimat Average Glucose Pending Hemoglobin A1c Pending Calcium 8.6 Phosphorus 2.0 L Magnesium 2.0 Total Bilirubin 0.7 AST 109 H ALT 60 H Alkaline Phosphatase 52 Total Creatine Kinase 1580 H Total Protein 6.0 Albumin 3.3 L Globulin 2.7 Albumin/Globulin Ratio 1.2 TSH 09/07/22 06:46 WBC RBC Hgb Hct MCV MCH MCHC Plt Count APTT 49.7 H* PTT Ratio 1.8 Sodium Potassium Chloride Carbon Dioxide Anion Gap BUN Creatinine Est Cr Clr Drug Dosing Est GFR ( Amer) Est GFR (Non-Af Amer) BUN/Creatinine Ratio Glucose POC Glucose Estimat Average Glucose Hemoglobin A1c Calcium Phosphorus Magnesium Total Bilirubin AST ALT Alkaline Phosphatase Total Creatine Kinase Total Protein Albumin Globulin Albumin/Globulin Ratio TSH
[2022-09-07 09:54] LABS: Basophils # (auto) 0.01 K/uL (0-0.2); Basophils % (auto) 0.2 %; Eosinophils # (auto) 0.03 K/uL (0-0.50); Eosinophils % (auto) 0.5 %; Hematocrit (blood only) 38.7 % (37.0-47.0); Immature Granulocytes # (auto) 0.03 K/uL (0.01-0.20); Immature Granulocytes % (auto) 0.5 %; Lymphocytes # (auto) 0.82 K/uL (1.2-3.4); Lymphocytes % (auto) 14.5 %; Mean Corpuscular Hemoglobin 29.7 pg (25.0-34.0); Mean Corpuscular Hgb Conc 33.6 g/dL (32.0-36.0); Mean Corpuscular Volume 88.4 fL (80.0-100.0); Mean Platelet Volume 11.5 fL (9.4-12.4); Monocytes # (auto) 0.35 K/uL (0.11-0.59); Monocytes % (auto) 6.2 %; Neutrophils # (auto) 4.42 K/uL (1.40-6.50); Neutrophils % (auto) 78.1 %; Platelet Count 138 K/uL (130-400); RDW Standard Deviation 38.9 fL (36.4-46.3); Red Blood Count 4.38 M/uL (4.20-5.40); White Blood Count 5.66 K/ul (4.8-10.8)
[2022-09-07] MEDS: metroNIDAZOLE 500 MG/100 ML BAG IV SCH ×2 (10:30→16:35)
[2022-09-07] MEDS: THIAMINE HCL 100 MG in SYRINGE 9 ML IV SCH (10:30)
--- NOTE | 2022-09-07 11:14 | Psychiatric Progress Note ---
Date of Service September 07, 2022 Impression / Recommendations Impression This is a 71 yo admitted medically following an intentional overdose suicide attempt. Diagnostically consistent with MDD though difficult to fully assess given her level of confusion, agitation, tearfulness today. Acute risk of self- harm remains elevated and high given suicide attempt requiring medical admission, major depressive symptoms, ongoing SI with desire to , upset at having survived the attempt, hopelessness, limited insight, substance use suspoected (positive UDS on initial screen for opioids and benzos), and high psychic distress. Given elevated risk of harm to self they meet criteria for inpatient psychiatric care for diagnostic clarification, safety/stabilization, development of additional coping skills, medication management and disposition/safety planning once medically stable. If they do not agree to voluntary treatment at that time they will meet criteria for 302 status based on severity of suicide attempt and ongoing modifiable risk factors. 09/07/2022: Remains confused with paranoia, suspect due to delirium though could represent depression with psychotic features. Given ongoing paranoia and how this is negatively impacting her ability to allow care including medications and in attempt to avoid need for further IM medication will start zyprexa 5mg HS tonight. QTc normal on EKG today. (1) Suicide attempt by drug ingestion: (2) Encephalopathy: (3) AMS (altered mental status): Plan -Continue 1-on-1 for risk of harm to self -Do not discharge or allow to leave AMA, if attempts call security and psych liason as meets criteria for 302 -Start zyprexa 5mg HS po -For behavioral emergency: zyprexa 2.5mg IM (DO NOT exceed 10mg via IM sources in 24 hours and DO NOT coadminister with IM or IV benzodiazepines) -Once medically cleared will plan for psychiatric hospitalization (either 201 or 302 status). Interval History Identifying Information 71 yo woman with history of depression who was admitted medically after being found unresponsive after a neighbor was concerned a stopped by to do a welfare check. Psychiatry consulted for risk assessment and recommendations. Chief Complaint "They're probably all listening in the rdz". Subjective Subjective Patient was seen & assessed and interval progress reviewed. She required zyprexa 2.5mg IM at about midnight for agitation.Continues to be very paranoid at times of providers and RNs. Refusing medications or spitting them out. Tells me she doesn't want ibuprofen as this causes her to have eye issues and she knows this "because I read about it on the bottle". Tearful throughout the conversation, whispering. [place] states repeatedly she doesn't want her [place] to visit. Remains confused, thinks she is currently 73 and thinks the year is 1982. Continues to confirm she had a suicide attempt but cannot provide further details except agrees when asked if she took Paxil, opioid pain medications and benzodiazepines and states "i took everything that was in the medicine cabinet". Physical Exam Psychiatric Orientation: alert, oriented to person and + guarded Apperance: + disheveled Eye Contact: + poor eye contact Motor Behavior: + psychomotor agitation Speech: + abnormal rate/rhythm/volume of speech (brief, whsipered at times, loud and distressed at other points) Affect: + tearful affect and + irritable affect Mood: + depressed mood, + anxious mood and + irritable mood Thought Process: + perseveration Thought Content: + hopelessness Suicidal Thoughts: + reports suicidal thoughts (s/p suicide attempt and doesn't want to be alive) Homicidal Thoughts: denies homicidal thoughts Hallucinations: no auditory hallucinations and no visual hallucinations Cognition: + attention not intact Insight: + impaired insight Judgment: + severely impaired judgement Vital Signs (Past 24 Hours) Last Vital Signs Temp 36.8 C 09/07/22 07:09 Pulse 91 H 09/07/22 08:00 Resp 18 09/07/22 07:09 BP 130/72 09/07/22 07:09 Pulse Ox 98 09/07/22 07:09 O2 Del Method Room Air 09/07/22 07:09 O2 Flow Rate 3 09/05/22 21:00 Results & Data ([facility]) Laboratory Results Laboratory Results - last 24 hr 09/06/22 09/06/22 09/06/22 12:04 12:28 12:28 WBC RBC Hgb Hct MCV MCH MCHC RDW Std Deviation RDW Coeff of Mary Plt Count MPV Immature Gran % (Auto) Neut % (Auto) Lymph % (Auto) [place]ton % (Auto) Eos % (Auto) Baso % (Auto) Neut # (Auto) Lymph # (Auto) [place] # (Auto) Eos # (Auto) Baso # (Auto) Immature Gran # (Auto) APTT PTT Ratio Sodium Potassium Chloride Carbon Dioxide Anion Gap BUN Creatinine Est Cr Clr Drug Dosing Est GFR ( Amer) Est GFR (Non-Af Amer) BUN/Creatinine Ratio Glucose POC Glucose 92 Estimat Average Glucose Hemoglobin A1c Calcium Phosphorus Magnesium Total Bilirubin AST ALT Alkaline Phosphatase Total Creatine Kinase 2995 H Total Protein Albumin Globulin Albumin/Globulin Ratio TSH 4.005 09/06/22 09/06/22 09/06/22 14:47 18:12 23:31 WBC RBC Hgb Hct MCV MCH MCHC RDW Std Deviation RDW Coeff of Mary Plt Count MPV Immature Gran % (Auto) Neut % (Auto) Lymph % (Auto) Carlton % (Auto) Eos % (Auto) Baso % (Auto) Neut # (Auto) Lymph # (Auto) [place] # (Auto) Eos # (Auto) Baso # (Auto) Immature Gran # (Auto) APTT 34.4 H 43.3 H* PTT Ratio 1.2 1.5 Sodium Potassium Chloride Carbon Dioxide Anion Gap BUN Creatinine Est Cr Clr Drug Dosing Est GFR ( Amer) Est GFR (Non-Af Amer) BUN/Creatinine Ratio Glucose POC Glucose 90 Estimat Average Glucose Hemoglobin A1c Calcium Phosphorus Magnesium Total Bilirubin AST ALT Alkaline Phosphatase Total Creatine Kinase Total Protein Albumin Globulin Albumin/Globulin Ratio TSH 09/07/22 09/07/22 09/07/22 06:46 06:46 06:46 WBC 5.66 RBC 4.38 Hgb 13.0 Hct 38.7 MCV 88.4 MCH 29.7 MCHC 33.6 RDW Std Deviation 38.9 RDW Coeff of Mary 12.0 Plt Count 138 MPV 11.5 Immature Gran % (Auto) 0.5 Neut % (Auto) 78.1 Lymph % (Auto) 14.5 Carlton % (Auto) 6.2 Eos % (Auto) 0.5 Baso % (Auto) 0.2 Neut # (Auto) 4.42 Lymph # (Auto) 0.82 L Carlton # (Auto) 0.35 Eos # (Auto) 0.03 Baso # (Auto) 0.01 Immature Gran # (Auto) 0.03 APTT PTT Ratio Sodium 143 Potassium 2.7 L D Chloride 106 Carbon Dioxide 27 Anion Gap 10 BUN 14 Creatinine 0.48 L Est Cr Clr Drug Dosing 85.4 Est GFR ( Amer) 114.4 Est GFR (Non-Af Amer) 98.7 BUN/Creatinine Ratio 29.2 H Glucose 87 POC Glucose Estimat Average Glucose Pending Hemoglobin A1c Pending Calcium 8.6 Phosphorus 2.0 L Magnesium 2.0 Total Bilirubin 0.7 AST 109 H ALT 60 H Alkaline Phosphatase 52 Total Creatine Kinase 1580 H Total Protein 6.0 Albumin 3.3 L Globulin 2.7 Albumin/Globulin Ratio 1.2 [facility] 09/07/22 06:46 WBC RBC Hgb Hct MCV MCH MCHC RDW Std Deviation RDW Coeff of Mary Plt Count MPV Immature Gran % (Auto) Neut % (Auto) Lymph % (Auto) Carl[place] % (Auto) Eos % (Auto) Baso % (Auto) Neut # (Auto) Lymph # (Auto) [place] # (Auto) Eos # (Auto) Baso # (Auto) Immature Gran # (Auto) APTT 49.7 H* PTT Ratio 1.8 Sodium Potassium Chloride Carbon Dioxide Anion Gap BUN Creatinine Est Cr Clr Drug Dosing Est GFR ( Amer) Est GFR (Non-Af Amer) BUN/Creatinine Ratio Glucose POC Glucose Estimat Average Glucose Hemoglobin A1c Calcium Phosphorus Magnesium Total Bilirubin AST ALT Alkaline Phosphatase Total Creatine Kinase Total Protein Albumin Globulin Albumin/Globulin Ratio TSH Current Inpatient Medications Current Inpatient Medications: Current Inpatient Medications Acetaminophen (Acetaminophen 325 Mg Tab) 650 mg PO Q4H PRN PRN Reason: Pain or Fever Stop: 10/05/22 18:59 Al Hydrox/Mg Hydrox/Simethicone (Aluminum/Magnesium Susp 30 Ml Udc) 15 ml PO Q4H PRN PRN Reason: Dyspepsia Stop: 10/05/22 18:59 Thiamine HCl 100 mg/ Syringe 10 mls @ 2 mls/min IV QAM COUNT INCLUDES THE [facility] Stop: 10/06/22 08:59 Last Admin: 09/07/22 10:30 Dose: 2 mls/min Ceftriaxone Sodium 2,000 mg/ (Dextrose) 70 mls @ 140 mls/hr IV DAILY@1200 ERMIAS Stop: 09/13/22 11:59 Last Infusion: 09/06/22 13:00 Dose: Infused Heparin Sodium/Dextrose (Heparin Sodium/Dextrose) 25,000 units in 500 mls @ 18 mls/hr IV .Q24H COUNT INCLUDES THE [facility]; Protocol Stop: 10/06/22 11:29 Last Titration: 09/06/22 23:24 Dose: 900 units/hr, 18 mls/hr Metronidazole (Flagyl) 500 mg in 100 mls @ 100 mls/hr IV Q8H COUNT INCLUDES THE [facility]; Protocol Stop: 09/13/22 15:59 Last Admin: 09/07/22 10:30 Dose: 100 mls/hr Folic Acid 1 mg/ Syringe 10 mls @ 5 mls/min IV QAM ERMIAS Stop: 10/07/22 08:59 Last Admin: 09/07/22 09:28 Dose: 5 mls/min Potassium Phosphate 30 mmol/ (Sodium Chloride) 510 mls @ 88 mls/hr IV ONE ONE Stop: 09/07/22 14:47 Last Admin: 09/07/22 09:29 Dose: 88 mls/hr Magnesium Hydroxide (Magnesium Hydroxide Susp 30 Ml Udc) 30 ml PO Q12H PRN PRN Reason: Constipation Stop: 10/05/22 18:59 Metoprolol Succinate (Metoprolol Succ 25mg Ext Rel Tab) 12.5 mg PO BID COUNT INCLUDES THE [facility] Stop: 10/06/22 20:59 Last Admin: 09/07/22 09:29 Dose: 12.5 mg Naloxone HCl (Naloxone Hcl 0.4 Mg/1 Ml Vial/Carp) 0.4 mg IV Q15M PRN PRN Reason: somnulenece, hypercarbia, hypo Stop: 10/05/22 22:17 Olanzapine (Olanzapine 10 Mg/2.1 Ml Sdv) 2.5 mg IM Q4H PRN PRN Reason: Anxiety/Agitation Stop: 10/06/22 23:10 Ondansetron HCl (Ondansetron Inj 2 Mg/Ml 2 Ml Vial) 4 mg IV Q6H PRN PRN Reason: Nausea Stop: 10/05/22 18:59 Polyethylene Glycol (Polyethylene (Miralax) 17 Gm Pack) 17 gm PO DAILY PRN PRN Reason: Constipation Stop: 10/05/22 18:59
[2022-09-07] MEDS: cefTRIAXone SODIUM 2,000 MG in DEXTROSE 5% 50 ML IV SCH (12:07)
--- NOTE | 2022-09-07 13:32 | Hospitalist Progress Note ---
Date of Service September 07, 2022 Assessment & Plan (1) Overdose: (2) Unresponsiveness: (3) Sepsis: (4) Depression: (5) Aspiration pneumonia: Plan 71 year old with what appears to be intentional overdose. Found down; last week known 48 hours prior. Severe history of depression with known SI. H/O voluntary inpatient stay at the [facility] x3 days. UDS + for opioids and Benzos. Whole bottle of SSRI found next to her. Head CT negative. Intermittent somnolence. CXR suggestive of Aspiration PNA; will cover with Vanc + Unasyn. Lactate initially 4.8; will trend; suspect due to dehydration secondary to overdose. Narcan x2; suspect may need a Narcan infusion; discussed with Sumit Christie and will admit to ICU overnight. Lactic Acidosis secondary to infection and is complicated by overdose Unresponsiveness: Likely secondary to overdose Overdose likely with SSRI and Paxil--empty bottle was found beside patient Respiratory Acidosis: Admitted to ICU UDS + for Opioids and Benzos VBG 7.29, CO2 65, HCO3 31; received Narcan x2 Narcan x2 administered in ED 2L NSB given in ED; 0.9 NS @ 50mL/ maint fluids x2 bags; reassess mentation in AM Lactate 4.8; will trend-repeat lactate came back still elevated at 2.8 CXR concerning for aspiration PNA; Vanc + Unasyn ordered in ED; continue until cultures return Blood Cultures ordered-pending Urine culture is positive for gram-negative organism and further identification is pending Sputum Culture ordered-pending Suicide precautions-appreciate psychiatric input and recommendation for one-to-one sitter now and the patient cannot sign out AMA NPO for now; safe tray when cleared to eat Remains medically stable with improvement of hypercarbia and unresponsiveness Remains alert and awake but confused We will continue with one-to-one monitor and current medications Developed a flutter with variable block Heart rate went up to 150 Appreciate transmitter chief input and recommendation Has been started on intravenous heparin and intravenous beta-yvan Echo of the heart showed LV is normal in size, normal LV wall thickness, wall motion is normal, EF 60 to 65%, LA size is normal, aortic valve sclerosis mild without significant aortic stenosis and otherwise no significant valvular disease. Cardiology has been consulted-appreciate input and recommendation Electrolytes will be replaced accordingly and heparin will be discontinued when the electrolytes are normalized Rhabdomyolysis Was noted to be on the floor Initial CPK was 1848 and repeat came back higher at 2995 We will continue with intravenous fluid Monitor PRP and CPK-CPK has been improving Aspiration PNA: Secondary to unresponsive episode CXR suggestive of aspiration PNA. Procalcitonin 1.77; Vanco + Unasyn started in ED; will continue for now Vancomycin has been discontinued and the patient is put on ceftriaxone for UTI NPO We will add Flagyl orally to cover anaerobes No fever and or chills and white count remains normal Depression: Has been voluntarily admitted to the [facility] 3-4 years ago for severe depression Takes Paroxetine; hold Bottle was found empty next to patient UDS + for Opioids and Benzos Psych consult placed -appreciate input and recommendation We will hold paroxetine for now Disposition: PCP: Dr. Thomas Code Status: Full Code VTE Prophylaxis: Has been on intravenous heparin for now Remains stable to be transferred to telemetry unit Admission and Anticipated Discharge Date Admission Date: September 05, 2022 Subjective 09/06/2022 The patient was seen and examined in the ICU She was found to be unresponsive on floor in the morning of admission by her and was brought into ER for further evaluation She remains confused and is not letting to examine her Expresses that she is not well and want to be left alone 09/07/2022 The patient was seen and examined in telemetry unit She remains confused but has been communicating reasonably No more atrial fibrillation and remains hemodynamically stable Does not want to be disturbed that much Review of Systems Review of Systems: Unobtainable due to cognitive status Physical Exam Physical Exam: Lying in bed and crying with occasional agitation Constitutional: + ill appearing and average body habitus Eyes: PERRL, conjunctivae normal, anicteric sclerae ENMT: external ear and nose normal, oropharynx normal Neck: trachea midline, no thyromegaly Respiratory: no respiratory distress Auscultation: + diminished lung sounds and + crackles (Occasional crackles in the right side) Cardiovascular: Rate/Rhythm: regular rate and regular rhythm; not tachycardic Heart Sounds: normal S1 and normal S2; no murmur Extremities: no edema Gastrointestinal (Abdomen): Inspection/Auscultation: normal bowel sounds; abdomen not distended Percussion/Palpation: abdomen soft; abdomen nontender Musculoskeletal: No acute arthritis involving any of the joint Neurologic: Alert and awake. Minimally communicative. Pleasantly confused. No acute distress at rest Lymphatic: no cervical or axillary lymphadenopathy Results & Data Results & Data Vital Signs (Past 12 Hours) Vital Signs Temp Pulse Pulse Resp BP Pulse Ox O2 Del Method 09/07/22 08:00 91 H 09/07/22 07:09 36.8 C 85 18 130/72 98 Room Air 09/07/22 03:55 37.1 C 98 H 20 132/77 98 Room Air Laboratory Results Short CBC 09/07/22 Range/Units 06:46 WBC 5.66 (4.8-10.8) K/ul Hgb 13.0 (12.0-16.0) g/dl Hct 38.7 (37.0-47.0) % Plt Count 138 (130-400) K/uL BMP 09/07/22 06:46 Sodium 143 Potassium 2.7 L D Chloride 106 Carbon Dioxide 27 BUN 14 Creatinine 0.48 L Glucose 87 Calcium 8.6 Cardiac Enzymes 09/07/22 Range/Units 06:46 Total Creatine Kinase 1580 H (26-192) U/L Liver Function 09/07/22 Range/Units 06:46 Total Bilirubin 0.7 (0.2-1.0) mg/dl AST 109 H (13-39) U/L ALT 60 H (7-52) U/L Alkaline Phosphatase 52 (34-104) U/L Albumin 3.3 L (3.4-5.0) gm/dl Medications Administered Current Inpatient Medications Acetaminophen (Acetaminophen 325 Mg Tab) 650 mg PO Q4H PRN PRN Reason: Pain or Fever Stop: 10/05/22 18:59 Al Hydrox/Mg Hydrox/Simethicone (Aluminum/Magnesium Susp 30 Ml Udc) 15 ml PO Q4H PRN PRN Reason: Dyspepsia Stop: 10/05/22 18:59 Thiamine HCl 100 mg/ Syringe 10 mls @ 2 mls/min IV QAM [facility] Stop: 10/06/22 08:59 Last Admin: 09/07/22 10:30 Dose: 2 mls/min Ceftriaxone Sodium 2,000 mg/ (Dextrose) 70 mls @ 140 mls/hr IV DAILY@1200 ER[facility]AS Stop: 09/13/22 11:59 Last Infusion: 09/07/22 12:38 Dose: Infused Heparin Sodium/Dextrose (Heparin Sodium/Dextrose) 25,000 units in 500 mls @ 18 mls/hr IV .Q24H [facility]; Protocol Stop: 10/06/22 11:29 Last Titration: 09/06/22 23:24 Dose: 900 units/hr, 18 mls/hr Metronidazole (Flagyl) 500 mg in 100 mls @ 100 mls/hr IV Q8H [facility]; Protocol Stop: 09/13/22 15:59 Last Infusion: 09/07/22 11:32 Dose: Infused Folic Acid 1 mg/ Syringe 10 mls @ 5 mls/min IV QAM [facility] Stop: 10/07/22 08:59 Last Admin: 09/07/22 09:28 Dose: 5 mls/min Potassium Phosphate 30 mmol/ (Sodium Chloride) 510 mls @ 88 mls/hr IV ONE ONE Stop: 09/07/22 14:47 Last Admin: 09/07/22 09:29 Dose: 88 mls/hr Magnesium Hydroxide (Magnesium Hydroxide Susp 30 Ml Udc) 30 ml PO Q12H PRN PRN Reason: Constipation Stop: 10/05/22 18:59 Metoprolol Succinate (Metoprolol Succ 25mg Ext Rel Tab) 12.5 mg PO BID [facility] Stop: 10/06/22 20:59 Last Admin: 09/07/22 09:29 Dose: 12.5 mg Naloxone HCl (Naloxone Hcl 0.4 Mg/1 Ml Vial/Carp) 0.4 mg IV Q15M PRN PRN Reason: somnulenece, hypercarbia, hypo Stop: 10/05/22 22:17 Olanzapine (Olanzapine 10 Mg/2.1 Ml Sdv) 2.5 mg IM Q4H PRN PRN Reason: Anxiety/Agitation Stop: 10/06/22 23:10 Ondansetron HCl (Ondansetron Inj 2 Mg/Ml 2 Ml Vial) 4 mg IV Q6H PRN PRN Reason: Nausea Stop: 10/05/22 18:59 Polyethylene Glycol (Polyethylene (Miralax) 17 Gm Pack) 17 gm PO DAILY PRN PRN Reason: Constipation Stop: 10/05/22 18:59
[2022-09-07] MEDS: HEPARIN SODIUM/DEXTROSE 25,000 UNITS/500 ML BAG IV SCH (15:31)
[2022-09-07] MEDS ORDERED: OLANZapine 5 MG TABLET PO SCH (21:00)
[2022-09-08] MEDS: metroNIDAZOLE 500 MG/100 ML BAG IV SCH ×4 (00:33→23:58)
[2022-09-08 07:13] LABS: 7-Aminoclonaz, Confirm NEGATIVE ng/mL (<25); Codeine Urine NEGATIVE ng/mL (<50); Hydro-Alp Ur, GC/MS NEGATIVE ng/mL (<25); Hydrocodone Urine 3160 ng/mL (<50); Hydromor Urine NEGATIVE ng/mL (<50); Hydroxyethylflurazepam, Conf NEGATIVE ng/mL (<50); Hydroxymidazolam Ur, GC/MS NEGATIVE ng/mL (<50); Hydroxytriazolam NEGATIVE ng/mL (<50); Lorazepam, Ur GC/MS >2000 ng/mL (<50); Morphine Urine NEGATIVE ng/mL (<50); Nordiazepam, Confirm 794 ng/mL (<50); Norhydrocodone Conf Ur 3690 ng/mL (<50); Noroxycodone Urine >10000 ng/mL (<50); Oxazepam Ur, GC/MS 330 ng/mL (<50); Oxycodone Urine >10000 ng/mL (<50); Oxymorph Urine 324 ng/mL (<50); Temazepam, Confirm 1830 ng/mL (<50)
[2022-09-08 07:51] LABS: BUN Creatinine Ratio 40.4 (10-20); Calcium 8.6 mg/dl (8.6-10.3); Creatinine Clr Calc Pharmacy 87.2 ml/min; Est GFR (African American) 115.2 ml/min; Est GFR (Non-African American) 99.4 ml/min; Magnesium 2.1 mg/dl (1.7-2.4); Phosphorus 3.2 mg/dl (2.5-4.9)
[2022-09-08] MEDS ORDERED: POTASSIUM CHLORIDE CRTAB 20 MEQ TABCR PO STA (08:08)
[2022-09-08] MEDS ORDERED: POTASSIUM ACETATE/NSS 10 MEQ/105 ML BAG IV STA (08:08)
[2022-09-08 08:12] LABS: Estimated Average Glucose 120 mg/dl; Hemoglobin A1C 5.8 % (4.5-5.6)
[2022-09-08] MEDS: FOLIC ACID 1 MG in SYRINGE 9.8 ML IV SCH (09:10)
[2022-09-08] MEDS: THIAMINE HCL 100 MG in SYRINGE 9 ML IV SCH (09:10)
[2022-09-08] MEDS: METOPROLOL SUCC 25MG EXT REL TAB PO SCH ×2 (09:10→20:20)
[2022-09-08] MEDS: cefTRIAXone SODIUM 2,000 MG in DEXTROSE 5% 50 ML IV SCH (11:47)
--- NOTE | 2022-09-08 12:19 | Psychiatric Progress Note ---
Date of Service September 08, 2022 Impression / Recommendations Impression This is a 71 yo admitted medically following an intentional overdose suicide attempt. Diagnostically consistent with MDD though difficult to fully assess given her level of confusion, agitation, tearfulness today. Acute risk of self- harm remains elevated and high given suicide attempt requiring medical admission, major depressive symptoms, ongoing SI with desire to , upset at having survived the attempt, hopelessness, limited insight, substance use suspoected (positive UDS on initial screen for opioids and benzos), and high psychic distress. Given elevated risk of harm to self they meet criteria for inpatient psychiatric care for diagnostic clarification, safety/stabilization, development of additional coping skills, medication management and disposition/safety planning once medically stable. If they do not agree to voluntary treatment at that time they will meet criteria for 302 status based on severity of suicide attempt and ongoing modifiable risk factors. 09/08/2022: Remains confused with paranoia and easily agitated with nursing attempts to get vital signs and provide care; however, she did take po zyprexa last evening. Increased sedation this morning could represent side effect to zyprexa versus switch into more hypoactive delirium. Given possible zyprexa side effect will reduce dose. (1) Suicide attempt by drug ingestion: (2) Encephalopathy: (3) AMS (altered mental status): Plan -Continue 1-on-1 for risk of harm to self -Do not discharge or allow to leave AMA, if attempts call security and psych liason as meets criteria for 302 -Decrease zyprexa to 2.5mg HS po -For behavioral emergency: zyprexa 2.5mg IM (DO NOT exceed 10mg via IM sources in 24 hours and DO NOT coadminister with IM or IV benzodiazepines) -Once medically cleared will plan for psychiatric hospitalization (either 201 or 302 status). Interval History Identifying Information 71 yo woman with history of depression who was admitted medically after being found unresponsive after a neighbor was concerned a stopped by to do a welfare check. Psychiatry consulted for risk assessment and recommendations. Chief Complaint sleeping Subjective Subjective Patient was seen & assessed and interval progress reviewed. She accepted po zyprexa last evening. Her daughter visited and provided collateral information including concern for Rachel misusing old Valium prescriptions prior to admission and very poor self care due to suspected worsening depression. She continued to have episodes of paranoia last evening. Mid-morning she was very sedated and would not wake enough to engage with interview. Per 1-on-1 she was intermittently awake all morning and expressing ongoing anger and agitation with care. Physical Exam Psychiatric Orientation: + not alert Vital Signs (Past 24 Hours) Last Vital Signs Temp 36.8 C 09/08/22 11:26 Pulse 78 09/08/22 11:26 Resp 17 09/08/22 11:26 BP 125/74 09/08/22 11:26 Pulse Ox 95 09/08/22 11:26 O2 Del Method Room Air 09/08/22 11:26 O2 Flow Rate 3 09/05/22 21:00 Results & Data ([facility]) Laboratory Results Laboratory Results - last 24 hr 09/05/22 09/07/22 09/08/22 17:39 06:46 00:20 Sodium Potassium Chloride Carbon Dioxide Anion Gap BUN Creatinine Est Cr Clr Drug Dosing Est GFR ( Amer) Est GFR (Non-Af Amer) BUN/Creatinine Ratio Glucose POC Glucose 82 Estimat Average Glucose 120 Hemoglobin A1c 5.8 H Calcium Phosphorus Magnesium U Codeine Confrm GC/MS NEGATIVE Ur Morphine (GC/MS) NEGATIVE Ur Hydrocodone (GC/MS) 3160 H Ur Norhydrocodone 3690 H Ur Noroxycodone >65725 H Urine Oxycodone (GC/MS) >69266 H U Oxymorphone GC/MS 324 H Ur Hydromorphone (GC/MS) NEGATIVE U OH-Alprazolam Confrm NEGATIVE 7-Amino Clonazepam NEGATIVE Ur Nordiazepam Confirm 794 H U OH-ethylflurazepam NEGATIVE U Lorazepam Cnf GC/MS >2000 H U Oxazepam Confm GC/MS 330 H Ur Temazepam Confirm 1830 H U OH-Triazolam Confirm NEGATIVE U OH-Midazolam Confirm NEGATIVE Drug Screen Comment SEE NOTE 09/08/22 06:35 Sodium 142 Potassium 3.0 L Chloride 107 Carbon Dioxide 25 Anion Gap 10 BUN 19 Creatinine 0.47 L Est Cr Clr Drug Dosing 87.2 Est GFR ( Amer) 115.2 Est GFR (Non-Af Amer) 99.4 BUN/Creatinine Ratio 40.4 H Glucose 98 POC Glucose Estimat Average Glucose Hemoglobin A1c Calcium 8.6 Phosphorus 3.2 D Magnesium 2.1 U Codeine Confrm GC/MS Ur Morphine (GC/MS) Ur Hydrocodone (GC/MS) Ur Norhydrocodone Ur Noroxycodone Urine Oxycodone (GC/MS) U Oxymorphone GC/MS Ur Hydromorphone (GC/MS) U OH-Alprazolam Confrm 7-Amino Clonazepam Ur Nordiazepam Confirm U OH-ethylflurazepam U Lorazepam Cnf GC/MS U Oxazepam Confm GC/MS Ur Temazepam Confirm U OH-Triazolam Confirm U OH-Midazolam Confirm Drug Screen Comment Current Inpatient Medications Current Inpatient Medications: Current Inpatient Medications Acetaminophen (Acetaminophen 325 Mg Tab) 650 mg PO Q4H PRN PRN Reason: Pain or Fever Stop: 10/05/22 18:59 Al Hydrox/Mg Hydrox/Simethicone (Aluminum/Magnesium Susp 30 Ml Udc) 15 ml PO Q4H PRN PRN Reason: Dyspepsia Stop: 10/05/22 18:59 Thiamine HCl 100 mg/ Syringe 10 mls @ 2 mls/min IV QAM [facility] Stop: 10/06/22 08:59 Last Admin: 09/08/22 09:10 Dose: 2 mls/min Ceftriaxone Sodium 2,000 mg/ (Dextrose) 70 mls @ 140 mls/hr IV DAILY@1200 ERMIAS Stop: 09/13/22 11:59 Last Infusion: 09/08/22 12:18 Dose: Infused Metronidazole (Flagyl) 500 mg in 100 mls @ 100 mls/hr IV Q8H [facility]; Protocol Stop: 09/13/22 15:59 Last Infusion: 09/08/22 10:19 Dose: Infused Folic Acid 1 mg/ Syringe 10 mls @ 5 mls/min IV QAM [facility] Stop: 10/07/22 08:59 Last Admin: 09/08/22 09:10 Dose: 5 mls/min Magnesium Hydroxide (Magnesium Hydroxide Susp 30 Ml Udc) 30 ml PO Q12H PRN PRN Reason: Constipation Stop: 10/05/22 18:59 Metoprolol Succinate (Metoprolol Succ 25mg Ext Rel Tab) 12.5 mg PO BID [facility] Stop: 10/06/22 20:59 Last Admin: 09/08/22 09:10 Dose: 12.5 mg Naloxone HCl (Naloxone Hcl 0.4 Mg/1 Ml Vial/Carp) 0.4 mg IV Q15M PRN PRN Reason: somnulenece, hypercarbia, hypo Stop: 10/05/22 22:17 Olanzapine (Olanzapine 10 Mg/2.1 Ml Sdv) 2.5 mg IM Q4H PRN PRN Reason: Anxiety/Agitation Stop: 10/06/22 23:10 Olanzapine (Olanzapine 5 Mg Tablet) 5 mg PO HS [facility] Stop: 10/07/22 20:59 Last Admin: 09/07/22 20:45 Dose: 5 mg Ondansetron HCl (Ondansetron Inj 2 Mg/Ml 2 Ml Vial) 4 mg IV Q6H PRN PRN Reason: Nausea Stop: 10/05/22 18:59 Polyethylene Glycol (Polyethylene (Miralax) 17 Gm Pack) 17 gm PO DAILY PRN PRN Reason: Constipation Stop: 10/05/22 18:59
[2022-09-08] MEDS: ENOXAPARIN INJ 30 MG/0.3 ML SYR SQ SCH (13:55)
--- NOTE | 2022-09-08 15:25 | Hospitalist Progress Note ---
Date of Service September 08, 2022 Assessment & Plan (1) Overdose: (2) Unresponsiveness: (3) Sepsis: (4) Depression: (5) Aspiration pneumonia: Plan 71 year old with what appears to be intentional overdose. Found down; last week known 48 hours prior. Severe history of depression with known SI. H/O voluntary inpatient stay at the [facility] x3 days. UDS + for opioids and Benzos. Whole bottle of SSRI found next to her. Head CT negative. Intermittent somnolence. CXR suggestive of Aspiration PNA; will cover with Vanc + Unasyn. Lactate initially 4.8; will trend; suspect due to dehydration secondary to overdose. Narcan x2; suspect may need a Narcan infusion; discussed with Sumit Christie and will admit to ICU overnight. Lactic Acidosis secondary to infection and is complicated by overdose Unresponsiveness: Likely secondary to overdose Overdose likely with SSRI and Paxil--empty bottle was found beside patient Respiratory Acidosis: Admitted to ICU UDS + for Opioids and Benzos VBG 7.29, CO2 65, HCO3 31; received Narcan x2 Narcan x2 administered in ED 2L NSB given in ED; 0.9 NS @ 50mL/ maint fluids x2 bags; reassess mentation in AM Lactate 4.8; will trend-repeat lactate came back still elevated at 2.8 CXR concerning for aspiration PNA; Vanc + Unasyn ordered in ED; continue until cultures return Blood Cultures ordered-pending Urine culture is positive for gram-negative organism and further identification is pending Sputum Culture ordered-pending Suicide precautions-appreciate psychiatric input and recommendation for one-to-one sitter now and the patient cannot sign out AMA NPO for now; safe tray when cleared to eat Remains medically stable with improvement of hypercarbia and unresponsiveness Remains alert and awake but confused We will continue with one-to-one monitor and current medications Remains very sleepy and dose of Zyprexa has been decreased Hemodynamically stable and will require to continue with one-to-one sitter for now Developed a flutter with variable block Heart rate went up to 150 Appreciate vp revenue cycle input and recommendation Has been started on intravenous heparin and intravenous beta-yvan Echo of the heart showed LV is normal in size, normal LV wall thickness, wall motion is normal, EF 60 to 65%, LA size is normal, aortic valve sclerosis mild without significant aortic stenosis and otherwise no significant valvular disease. Cardiology has been consulted-appreciate input and recommendation Electrolytes will be replaced accordingly and heparin will be discontinued when the electrolytes are normalized Potassium remains low and will be supplemented-heparin is discontinued Remains in sinus rhythm Rhabdomyolysis Was noted to be on the floor Initial CPK was 1848 and repeat came back higher at 2995 We will continue with intravenous fluid Monitor PRP and CPK-CPK has been improving Advised to drink more fluid Aspiration PNA: Secondary to unresponsive episode CXR suggestive of aspiration PNA. Procalcitonin 1.77; Vanco + Unasyn started in ED; will continue for now Vancomycin has been discontinued and the patient is put on ceftriaxone for UTI NPO We will add Flagyl orally to cover anaerobes No fever and or chills and white count remains normal Depression: Has been voluntarily admitted to the [facility] 3-4 years ago for severe depression Takes Paroxetine; hold Bottle was found empty next to patient UDS + for Opioids and Benzos Psych consult placed -appreciate input and recommendation We will hold paroxetine for now Disposition: PCP: Dr. Thomas Code Status: Full Code VTE Prophylaxis: Has been on intravenous heparin for now Remains stable to be transferred to telemetry unit Admission and Anticipated Discharge Date Admission Date: September 05, 2022 Subjective 09/06/2022 The patient was seen and examined in the ICU She was found to be unresponsive on floor in the morning of admission by her and was brought into ER for further evaluation She remains confused and is not letting to examine her Expresses that she is not well and want to be left alone 09/07/2022 The patient was seen and examined in telemetry unit She remains confused but has been communicating reasonably No more atrial fibrillation and remains hemodynamically stable Does not want to be disturbed that much 09/08/2022 The patient was seen and examined in telemetry unit She does not want to be disturbed and has been communicating and answering questions appropriately Remains weak and lethargic and very sleepy Review of Systems Review of Systems: Unobtainable due to cognitive status Physical Exam Physical Exam: Lying in bed and crying with occasional agitation Constitutional: + ill appearing and average body habitus Eyes: PERRL, conjunctivae normal, anicteric sclerae ENMT: external ear and nose normal, oropharynx normal Neck: trachea midline, no thyromegaly Respiratory: no respiratory distress Auscultation: + diminished lung sounds and + crackles (Occasional crackles in the right side) Cardiovascular: Rate/Rhythm: regular rate and regular rhythm; not tachycardic Heart Sounds: normal S1 and normal S2; no murmur Extremities: no edema Gastrointestinal (Abdomen): Inspection/Auscultation: normal bowel sounds; abdomen not distended Percussion/Palpation: abdomen soft; abdomen nontender Musculoskeletal: No acute arthritis involving any joint Neurologic: Alert and awake. Communicating almost normally. Pleasantly confused. Generally weak and very sleepy Lymphatic: no cervical or axillary lymphadenopathy Results & Data Results & Data Vital Signs (Past 12 Hours) Vital Signs Temp Pulse Pulse Resp BP BP Pulse Ox 09/08/22 13:56 96 H 09/08/22 14:54 36.9 C 86 17 124/75 94 09/08/22 13:21 09/08/22 11:26 36.8 C 78 17 125/74 95 09/08/22 08:00 77 09/08/22 07:36 88 18 127/73 94 09/08/22 04:03 121/77 O2 Del Method 09/08/22 13:56 09/08/22 14:54 Room Air 09/08/22 13:21 Room Air 09/08/22 11:26 Room Air 09/08/22 08:00 09/08/22 07:36 Room Air 09/08/22 04:03 Laboratory Results [facility] 09/08/22 06:35 Sodium 142 Potassium 3.0 L Chloride 107 Carbon Dioxide 25 BUN 19 Creatinine 0.47 L Glucose 98 Calcium 8.6 Medications Administered Current Inpatient Medications Acetaminophen (Acetaminophen 325 Mg Tab) 650 mg PO Q4H PRN PRN Reason: Pain or Fever Stop: 10/05/22 18:59 Al Hydrox/Mg Hydrox/Simethicone (Aluminum/Magnesium Susp 30 Ml Udc) 15 ml PO Q4H PRN PRN Reason: Dyspepsia Stop: 10/05/22 18:59 Enoxaparin Sodium (Enoxaparin Inj 30 Mg/0.3 Ml Syr) 30 mg SQ QAM [facility] Stop: 10/08/22 12:44 Last Admin: 09/08/22 13:55 Dose: 30 mg Thiamine HCl 100 mg/ Syringe 10 mls @ 2 mls/min IV QAM [facility] Stop: 10/06/22 08:59 Last Admin: 09/08/22 09:10 Dose: 2 mls/min Ceftriaxone Sodium 2,000 mg/ (Dextrose) 70 mls @ 140 mls/hr IV DAILY@1200 [facility] Stop: 09/13/22 11:59 Last Infusion: 09/08/22 12:18 Dose: Infused Metronidazole (Flagyl) 500 mg in 100 mls @ 100 mls/hr IV Q8H [facility]; Protocol Stop: 09/13/22 15:59 Last Infusion: 09/08/22 10:19 Dose: Infused Folic Acid 1 mg/ Syringe 10 mls @ 5 mls/min IV QAM [facility] Stop: 10/07/22 08:59 Last Admin: 09/08/22 09:10 Dose: 5 mls/min Magnesium Hydroxide (Magnesium Hydroxide Susp 30 Ml Udc) 30 ml PO Q12H PRN PRN Reason: Constipation Stop: 10/05/22 18:59 Metoprolol Succinate (Metoprolol Succ 25mg Ext Rel Tab) 12.5 mg PO BID [facility] Stop: 10/06/22 20:59 Last Admin: 09/08/22 09:10 Dose: 12.5 mg Naloxone HCl (Naloxone Hcl 0.4 Mg/1 Ml Vial/Carp) 0.4 mg IV Q15M PRN PRN Reason: somnulenece, hypercarbia, hypo Stop: 10/05/22 22:17 Olanzapine (Olanzapine 10 Mg/2.1 Ml Sdv) 2.5 mg IM Q4H PRN PRN Reason: Anxiety/Agitation Stop: 10/06/22 23:10 Olanzapine (Olanzapine 5 Mg Tablet) 5 mg PO HS [facility] Stop: 10/07/22 20:59 Last Admin: 09/07/22 20:45 Dose: 5 mg Ondansetron HCl (Ondansetron Inj 2 Mg/Ml 2 Ml Vial) 4 mg IV Q6H PRN PRN Reason: Nausea Stop: 10/05/22 18:59 Polyethylene Glycol (Polyethylene (Miralax) 17 Gm Pack) 17 gm PO DAILY PRN PRN Reason: Constipation Stop: 10/05/22 18:59
[2022-09-08] MEDS: OLANZAPINE 2.5 MG TAB PO SCH (20:20)
[2022-09-08] MEDS: ACETAMINOPHEN 325 MG TAB PO PRN (23:49)
[2022-09-09 07:52] LABS: Basophils # (auto) 0.03 K/uL (0-0.2); Basophils % (auto) 0.6 %; Eosinophils # (auto) 0.12 K/uL (0-0.50); Eosinophils % (auto) 2.4 %; Immature Granulocytes # (auto) 0.06 K/uL (0.01-0.20); Immature Granulocytes % (auto) 1.2 %; Lymphocytes # (auto) 0.66 K/uL (1.2-3.4); Lymphocytes % (auto) 13.4 %; Mean Corpuscular Hemoglobin 29.7 pg (25.0-34.0); Mean Corpuscular Hgb Conc 33.3 g/dL (32.0-36.0); Mean Platelet Volume 10.9 fL (9.4-12.4); Monocytes # (auto) 0.44 K/uL (0.11-0.59); Monocytes % (auto) 8.9 %; Neutrophils # (auto) 3.62 K/uL (1.40-6.50); Neutrophils % (auto) 73.5 %; Platelet Count 147 K/uL (130-400); RDW Coefficient of Variation 12.2 % (11.5-14.5); RDW Standard Deviation 39.9 fL (36.4-46.3); Red Blood Count 4.72 M/uL (4.20-5.40); White Blood Count 4.93 K/ul (4.8-10.8)
[2022-09-09] MEDS: ENOXAPARIN INJ 30 MG/0.3 ML SYR SQ SCH (08:07)
[2022-09-09] MEDS: THIAMINE HCL 100 MG TAB PO SCH (08:07)
[2022-09-09] MEDS: METOPROLOL SUCC 25MG EXT REL TAB PO SCH ×2 (08:07→20:55)
[2022-09-09] MEDS: FOLIC ACID 1 MG TAB PO SCH (08:07)
[2022-09-09] MEDS: metroNIDAZOLE 500 MG/100 ML BAG IV SCH (08:08)
--- NOTE | 2022-09-09 08:13 | Electrocardiogram Report ---
Test Reason : Blood Pressure : / mmHG Vent. Rate : 094 BPM Atrial Rate : 094 BPM P-R Int : 136 ms QRS Dur : 092 ms QT Int : 346 ms P-R-T Axes : 082 084 045 degrees QTc Int : 432 ms Normal sinus rhythm Normal ECG When compared with ECG of 06-SEP-2022 11:03, Sinus rhythm has replaced Atrial fibrillation Vent. rate has decreased BY 48 BPM Confirmed by Jw Leal ([id number] on 09/09/2022 8:13:07 AM Referred By: REFERRED SELF Confirmed By:Jw Leal
[2022-09-09 08:20] LABS: BUN Creatinine Ratio 44.4 (10-20); Calcium 8.7 mg/dl (8.6-10.3); Est GFR (Non-African American) 94.9 ml/min; Magnesium 2.1 mg/dl (1.7-2.4); Potassium 3.8 mmol/L (3.5-5.1)
--- NOTE | 2022-09-09 08:47 | Electrocardiogram Report ---
Test Reason : Blood Pressure : / mmHG Vent. Rate : 078 BPM Atrial Rate : 078 BPM P-R Int : 136 ms QRS Dur : 082 ms QT Int : 384 ms P-R-T Axes : 078 082 064 degrees QTc Int : 437 ms Normal sinus rhythm Minor Anterior ST elevation, most consistent with repolarization variant Normal ECG When compared with ECG of 07-SEP-2022 08:42, No significant change Confirmed by Antonio Owens ([id number] on 09/09/2022 8:47:17 AM Referred By: REFERRED SELF Confirmed By:Antonio Owens
--- NOTE | 2022-09-09 11:16 | Psychiatric Progress Note ---
Date of Service September 09, 2022 Impression / Recommendations Impression This is a 71 yo admitted medically following an intentional overdose suicide attempt. Diagnostically consistent with MDD though difficult to fully assess given her level of confusion, agitation, tearfulness today. Acute risk of self- harm remains elevated and high given suicide attempt requiring medical admission, major depressive symptoms, ongoing SI with desire to , upset at having survived the attempt, hopelessness, limited insight, substance use suspoected (positive UDS on initial screen for opioids and benzos), and high psychic distress. Given elevated risk of harm to self they meet criteria for inpatient psychiatric care for diagnostic clarification, safety/stabilization, development of additional coping skills, medication management and disposition/safety planning once medically stable. If they do not agree to voluntary treatment at that time they will meet criteria for 302 status based on severity of suicide attempt and ongoing modifiable risk factors. 09/09/2022: Delirium appears to have resolved. Continues to confirm suicide attempt via polypharmacy due to stress related to her divorce/ex-. Agreeable to inpatient psychiatric admission once medically stable. Tolerating olanzapine well, will continue one more night to ensure full resolution of previous delirium symptoms. (1) Suicide attempt by drug ingestion: (2) Encephalopathy: (3) AMS (altered mental status): Plan -Continue 1-on-1 for risk of harm to self -Do not discharge or allow to leave AMA, if attempts call security and psych liason as meets criteria for 302 -c/w zyprexa to 2.5mg HS po -For behavioral emergency: zyprexa 2.5mg IM (DO NOT exceed 10mg via IM sources in 24 hours and DO NOT coadminister with IM or IV benzodiazepines) -Once medically cleared will plan for psychiatric hospitalization (either 201 or 302 status). Interval History Identifying Information 71 yo woman with history of depression who was admitted medically after being found unresponsive after a neighbor was concerned a stopped by to do a welfare check. Psychiatry consulted for risk assessment and recommendations. Chief Complaint "I feel more positive today and I was able to eat and drink". Review of Systems Notes sleeping, eating Subjective Subjective Patient was seen & assessed and interval progress reviewed. Fully oriented today. Eating and drinking. Feels that her strength is returning. States she has been feeling "extremely depressed and things kept getting worse" over the last few months due to stress related to her marriage/divorce. States "I just want to move on" and now feels more positive about surviving her suicide attempt. She confirms that she took a variety of pills including most everything in her medicine cabinet. She started Paxil about one month ago as a friend had experiened positive results with it so she requested it from her PCP but states she didn't notice any improvement. She is agreeable to voluntary inpatient psychiatric treatment once medically stable. Psychiatric history notable for denial of any prior suicide attempts, history of hospitalization once at the [facility] a few years ago for "panic attacks" and history of prior trials of sertraline, fluoxetine, escitalopram. No prior SNRI or other psychiatric medication trials. Physical Exam Psychiatric Orientation: alert and oriented x 3 Apperance: appropriately dressed and appropriately groomed Eye Contact: good eye contact Motor Behavior: no abnormal motor movements Speech: normal rate/rhythm/volume of speech Affect: + depressed affect and + constricted affect Mood: + depressed mood Thought Process: goal directed thought process Thought Content: reality based without delusions Suicidal Thoughts: denies suicidal thoughts (s/p serious suicide attempt with some ambivalence about surviving) Homicidal Thoughts: denies homicidal thoughts Hallucinations: no auditory hallucinations and no visual hallucinations Cognition: attention grossly intact and language grossly intact Estimated Intelligence: consistent with education level Insight: + fair insight Judgment: + limited judgement Vital Signs (Past 24 Hours) Last Vital Signs Temp 36.5 C 09/09/22 07:18 Pulse 89 09/09/22 07:55 Resp 16 09/09/22 07:18 BP 143/87 H 09/09/22 07:18 Pulse Ox 95 09/09/22 07:18 O2 Del Method Room Air 09/09/22 07:18 O2 Flow Rate 3 09/05/22 21:00 Results & Data ([facility]) Laboratory Results Laboratory Results - last 24 hr 09/08/22 09/09/22 09/09/22 20:04 07:04 07:04 WBC 4.93 RBC 4.72 Hgb 14.0 Hct 42.0 MCV 89.0 MCH 29.7 MCHC 33.3 RDW Std Deviation 39.9 RDW Coeff of Mary 12.2 Plt Count 147 MPV 10.9 Immature Gran % (Auto) 1.2 Neut % (Auto) 73.5 Lymph % (Auto) 13.4 Ritchie % (Auto) 8.9 Eos % (Auto) 2.4 Baso % (Auto) 0.6 Neut # (Auto) 3.62 Lymph # (Auto) 0.66 L Ritchie # (Auto) 0.44 Eos # (Auto) 0.12 Baso # (Auto) 0.03 Immature Gran # (Auto) 0.06 Sodium 143 Potassium 3.8 D Chloride 109 H Carbon Dioxide 27 Anion Gap 7 BUN 24 H Creatinine 0.54 L Est Cr Clr Drug Dosing 72.0 Est GFR ( Amer) 110.0 Est GFR (Non-Af Amer) 94.9 BUN/Creatinine Ratio 44.4 H Glucose 130 H POC Glucose 76 Calcium 8.7 Magnesium 2.1 Current Inpatient Medications Current Inpatient Medications: Current Inpatient Medications Acetaminophen (Acetaminophen 325 Mg Tab) 650 mg PO Q4H PRN PRN Reason: Pain or Fever Stop: 10/05/22 18:59 Last Admin: 09/08/22 23:49 Dose: 650 mg Al Hydrox/Mg Hydrox/Simethicone (Aluminum/Magnesium Susp 30 Ml Udc) 15 ml PO Q4H PRN PRN Reason: Dyspepsia Stop: 10/05/22 18:59 Enoxaparin Sodium (Enoxaparin Inj 40 Mg/0.4 Ml Syr) 40 mg SQ QAM [facility] Stop: 10/10/22 08:59 Folic Acid (Folic Acid 1 Mg Tab) 1 mg PO QAM [facility] Stop: 10/09/22 08:59 Last Admin: 09/09/22 08:07 Dose: 1 mg Ceftriaxone Sodium 2,000 mg/ (Dextrose) 70 mls @ 140 mls/hr IV DAILY@1200 [facility] Stop: 09/13/22 11:59 Last Infusion: 09/08/22 12:18 Dose: Infused Metronidazole (Flagyl) 500 mg in 100 mls @ 100 mls/hr IV Q8H [facility]; Protocol Stop: 09/13/22 15:59 Last Infusion: 09/09/22 09:22 Dose: Infused Magnesium Hydroxide (Magnesium Hydroxide Susp 30 Ml Udc) 30 ml PO Q12H PRN PRN Reason: Constipation Stop: 10/05/22 18:59 Metoprolol Succinate (Metoprolol Succ 25mg Ext Rel Tab) 12.5 mg PO BID [facility] Stop: 10/06/22 20:59 Last Admin: 09/09/22 08:07 Dose: 12.5 mg Naloxone HCl (Naloxone Hcl 0.4 Mg/1 Ml Vial/Carp) 0.4 mg IV Q15M PRN PRN Reason: somnulenece, hypercarbia, hypo Stop: 10/05/22 22:17 Olanzapine (Olanzapine 10 Mg/2.1 Ml Sdv) 2.5 mg IM Q4H PRN PRN Reason: Anxiety/Agitation Stop: 10/06/22 23:10 Olanzapine (Olanzapine 2.5 Mg Tab) 2.5 mg PO [facility] Stop: 10/08/22 20:59 Last Admin: 09/08/22 20:20 Dose: 2.5 mg Ondansetron HCl (Ondansetron Inj 2 Mg/Ml 2 Ml Vial) 4 mg IV Q6H PRN PRN Reason: Nausea Stop: 10/05/22 18:59 Polyethylene Glycol (Polyethylene (Miralax) 17 Gm Pack) 17 gm PO DAILY PRN PRN Reason: Constipation Stop: 10/05/22 18:59 Thiamine HCl (Thiamine Hcl 100 Mg Tab) 100 mg PO [facility] Stop: 10/09/22 08:59 Last Admin: 09/09/22 08:07 Dose: 100 mg
[2022-09-09] MEDS: cefTRIAXone SODIUM 2,000 MG in DEXTROSE 5% 50 ML IV SCH (12:31)
--- NOTE | 2022-09-09 14:26 | Hospitalist Progress Note ---
Date of Service September 09, 2022 Assessment & Plan (1) Overdose: (2) Unresponsiveness: (3) Sepsis: (4) Depression: (5) Aspiration pneumonia: Plan 71 year old with what appears to be intentional overdose. Found down; last week known 48 hours prior. Severe history of depression with known SI. H/O voluntary inpatient stay at the [facility] x3 days. UDS + for opioids and Benzos. Whole bottle of SSRI found next to her. Head CT negative. Intermittent somnolence. CXR suggestive of Aspiration PNA; will cover with Vanc + Unasyn. Lactate initially 4.8; will trend; suspect due to dehydration secondary to overdose. Narcan x2; suspect may need a Narcan infusion; discussed with Sumit Christie and will admit to ICU overnight. Lactic Acidosis secondary to infection and is complicated by overdose Unresponsiveness: Likely secondary to overdose Overdose likely with SSRI and Paxil--empty bottle was found beside patient Respiratory Acidosis: Admitted to ICU UDS + for Opioids and Benzos VBG 7.29, CO2 65, HCO3 31; received Narcan x2 Narcan x2 administered in ED 2L NSB given in ED; 0.9 NS @ 50mL/ maint fluids x2 bags; reassess mentation in AM Lactate 4.8; will trend-repeat lactate came back still elevated at 2.8 CXR concerning for aspiration PNA; Vanc + Unasyn ordered in ED; continue until cultures return Blood Cultures ordered-pending Urine culture is positive for gram-negative organism and further identification is pending Sputum Culture ordered-pending Suicide precautions-appreciate psychiatric input and recommendation for one-to-one sitter now and the patient cannot sign out AMA NPO for now; safe tray when cleared to eat Remains medically stable with improvement of hypercarbia and unresponsiveness Remains alert and awake but confused We will continue with one-to-one monitor and current medications Remains very sleepy and dose of Zyprexa has been decreased Hemodynamically stable and will require to continue with one-to-one sitter for now Has completely come around from unconscious episode Has been communicating normally and awaiting PT and OT evaluation Medically stable to be discharged to psychiatric care and awaiting physical therapy Developed a flutter with variable block Heart rate went up to 150 Appreciate contact center representative input and recommendation Has been started on intravenous heparin and intravenous beta-yvan Echo of the heart showed LV is normal in size, normal LV wall thickness, wall motion is normal, EF 60 to 65%, LA size is normal, aortic valve sclerosis mild without significant aortic stenosis and otherwise no significant valvular disease. Cardiology has been consulted-appreciate input and recommendation Electrolytes will be replaced accordingly and heparin will be discontinued when the electrolytes are normalized Potassium remains low and will be supplemented-heparin is discontinued Remains in sinus rhythm Does not require any further treatment for heart Rhabdomyolysis Was noted to be on the floor Initial CPK was 1848 and repeat came back higher at 2995 We will continue with intravenous fluid Monitor PRP and CPK-CPK has been improving Advised to drink more fluid Aspiration PNA: Secondary to unresponsive episode CXR suggestive of aspiration PNA. Procalcitonin 1.77; Vanco + Unasyn started in ED; will continue for now Vancomycin has been discontinued and the patient is put on ceftriaxone for UTI NPO We will add Flagyl orally to cover anaerobes No fever and or chills and white count remains normal We will continue antibiotic for a total of 10 days Depression: Has been voluntarily admitted to the [facility] 3-4 years ago for severe depression Takes Paroxetine; hold Bottle was found empty next to patient UDS + for Opioids and Benzos Psych consult placed -appreciate input and recommendation We will hold paroxetine for now Treatment as per psychiatrist Disposition: PCP: Dr. Thomas Code Status: Full Code VTE Prophylaxis: Has been on intravenous heparin for now Remains stable to be transferred to telemetry unit Admission and Anticipated Discharge Date Admission Date: September 05, 2022 Subjective 09/06/2022 The patient was seen and examined in the ICU She was found to be unresponsive on floor in the morning of admission by her and was brought into ER for further evaluation She remains confused and is not letting to examine her Expresses that she is not well and want to be left alone 09/07/2022 The patient was seen and examined in telemetry unit She remains confused but has been communicating reasonably No more atrial fibrillation and remains hemodynamically stable Does not want to be disturbed that much 09/08/2022 The patient was seen and examined in telemetry unit She does not want to be disturbed and has been communicating and answering questions appropriately Remains weak and lethargic and very sleepy 09/09/2022 The patient was seen and examined in medical telemetry unit She has been stable and has been conversing normally since this morning Denies any acute symptoms and wants to go to psych floor for continuation of care He will have PT and OT evaluation to start increasing movement Review of Systems Review of Systems: All systems reviewed and are unremarkable except as noted below Musculoskeletal: Back pain Integumentary: Has a blister on left heel on the lateral side Physical Exam Physical Exam: Lying in bed without any acute symptoms Constitutional: average body habitus; not ill appearing Eyes: PERRL, conjunctivae normal, anicteric sclerae ENMT: external ear and nose normal, oropharynx normal Neck: trachea midline, no thyromegaly Respiratory: no respiratory distress Auscultation: + diminished lung sounds and + crackles (Occasional crackles in the right side) Cardiovascular: Rate/Rhythm: regular rate and regular rhythm; not tachycardic Heart Sounds: normal S1 and normal S2; no murmur Extremities: no edema Gastrointestinal (Abdomen): Inspection/Auscultation: normal bowel sounds; abdomen not distended Percussion/Palpation: abdomen soft; abdomen nontender Musculoskeletal: Back pain without any other acute arthritis Neurologic: normal touch/pain/proprioception and moves all extremities; no focal motor deficits Alert awake and oriented x3 Lymphatic: no cervical or axillary lymphadenopathy Results & Data Results & Data Vital Signs (Past 12 Hours) Vital Signs Temp Pulse Pulse Resp BP BP Pulse Ox 09/09/22 13:00 36.9 C 88 18 116/70 93 09/09/22 07:55 89 09/09/22 07:18 36.5 C 78 16 143/87 H 95 09/09/22 03:50 75 09/09/22 04:35 09/09/22 04:14 100/56 L 09/09/22 03:52 36.9 C 76 18 91/58 L 95 O2 Del Method 09/09/22 13:00 Room Air 09/09/22 07:55 09/09/22 07:18 Room Air 09/09/22 03:50 09/09/22 04:35 Room Air 09/09/22 04:14 09/09/22 03:52 Room Air Laboratory Results Short CBC 09/09/22 Range/Units 07:04 WBC 4.93 (4.8-10.8) K/ul Hgb 14.0 (12.0-16.0) g/dl Hct 42.0 (37.0-47.0) % Plt Count 147 (130-400) K/uL BMP 09/09/22 07:04 Sodium 143 Potassium 3.8 D Chloride 109 H Carbon Dioxide 27 BUN 24 H Creatinine 0.54 L Glucose 130 H Calcium 8.7 Medications Administered Current Inpatient Medications Acetaminophen (Acetaminophen 325 Mg Tab) 650 mg PO Q4H PRN PRN Reason: Pain or Fever Stop: 10/05/22 18:59 Last Admin: 09/08/22 23:49 Dose: 650 mg Al Hydrox/Mg Hydrox/Simethicone (Aluminum/Magnesium Susp 30 Ml Udc) 15 ml PO Q4H PRN PRN Reason: Dyspepsia Stop: 10/05/22 18:59 Enoxaparin Sodium (Enoxaparin Inj 40 Mg/0.4 Ml Syr) 40 mg SQ QAM [facility] Stop: 10/10/22 08:59 Folic Acid (Folic Acid 1 Mg Tab) 1 mg PO QAM [facility] Stop: 10/09/22 08:59 Last Admin: 09/09/22 08:07 Dose: 1 mg Ceftriaxone Sodium 2,000 mg/ (Dextrose) 70 mls @ 140 mls/hr IV DAILY@1200 [facility] Stop: 09/13/22 11:59 Last Infusion: 09/09/22 13:00 Dose: Infused Metronidazole (Flagyl) 500 mg in 100 mls @ 100 mls/hr IV Q8H [facility]; Protocol Stop: 09/13/22 15:59 Last Infusion: 09/09/22 09:22 Dose: Infused Magnesium Hydroxide (Magnesium Hydroxide Susp 30 Ml Udc) 30 ml PO Q12H PRN PRN Reason: Constipation Stop: 10/05/22 18:59 Metoprolol Succinate (Metoprolol Succ 25mg Ext Rel Tab) 12.5 mg PO BID [facility] Stop: 10/06/22 20:59 Last Admin: 09/09/22 08:07 Dose: 12.5 mg Naloxone HCl (Naloxone Hcl 0.4 Mg/1 Ml Vial/Carp) 0.4 mg IV Q15M PRN PRN Reason: somnulenece, hypercarbia, hypo Stop: 10/05/22 22:17 Olanzapine (Olanzapine 10 Mg/2.1 Ml Sdv) 2.5 mg IM Q4H PRN PRN Reason: Anxiety/Agitation Stop: 10/06/22 23:10 Olanzapine (Olanzapine 2.5 Mg Tab) 2.5 mg PO HS [facility] Stop: 10/08/22 20:59 Last Admin: 09/08/22 20:20 Dose: 2.5 mg Ondansetron HCl (Ondansetron Inj 2 Mg/Ml 2 Ml Vial) 4 mg IV Q6H PRN PRN Reason: Nausea Stop: 10/05/22 18:59 Polyethylene Glycol (Polyethylene (Miralax) 17 Gm Pack) 17 gm PO DAILY PRN PRN Reason: Constipation Stop: 10/05/22 18:59 Thiamine HCl (Thiamine Hcl 100 Mg Tab) 100 mg PO [facility] Stop: 10/09/22 08:59 Last Admin: 09/09/22 08:07 Dose: 100 mg
[2022-09-09] MEDS: AMOXICILLIN/CLAVULANATE 875 MG TAB PO SCH (16:37)
[2022-09-09] MEDS: OLANZAPINE 2.5 MG TAB PO SCH (20:55)
[2022-09-10] MEDS: FOLIC ACID 1 MG TAB PO SCH (09:07)
[2022-09-10] MEDS: METOPROLOL SUCC 25MG EXT REL TAB PO SCH ×2 (09:07→22:04)
[2022-09-10] MEDS: AMOXICILLIN/CLAVULANATE 875 MG TAB PO SCH ×2 (09:07→16:30)
[2022-09-10] MEDS: THIAMINE HCL 100 MG TAB PO SCH (09:08)
[2022-09-10] MEDS: ENOXAPARIN INJ 40 MG/0.4 ML SYR SQ SCH (09:09)
--- NOTE | 2022-09-10 12:56 | Psychiatric Progress Note ---
Date of Service September 10, 2022 Impression / Recommendations Impression This is a 71 yo admitted medically following an intentional overdose suicide attempt. Diagnostically consistent with MDD though difficult to fully assess given her level of confusion, agitation, tearfulness today. Acute risk of self- harm remains elevated and high given suicide attempt requiring medical admission, major depressive symptoms, ongoing SI with desire to , upset at having survived the attempt, hopelessness, limited insight, substance use suspoected (positive UDS on initial screen for opioids and benzos), and high psychic distress. Given elevated risk of harm to self they meet criteria for inpatient psychiatric care for diagnostic clarification, safety/stabilization, development of additional coping skills, medication management and disposition/safety planning once medically stable. If they do not agree to voluntary treatment at that time they will meet criteria for 302 status based on severity of suicide attempt and ongoing modifiable risk factors. 09/10/2022: No further delirium. Agreeable with inpatient psychiatric hospitalization once medically stable for depression and serious suicide attempt. (1) Suicide attempt by drug ingestion: (2) Major depression, recurrent: Plan -Continue 1-on-1 for risk of harm to self -Do not discharge or allow to leave AMA, if attempts call security and psych liason as meets criteria for 302 -discontinue zyprexa -Once medically cleared will plan for psychiatric hospitalization (either 201 or 302 status). Interval History Identifying Information 71 yo woman with history of depression who was admitted medically after being found unresponsive after a neighbor was concerned a stopped by to do a welfare check. Psychiatry consulted for risk assessment and recommendations. Chief Complaint "I feel less depressed here, everyone is very nice and there is always someone around to talk to". Review of Systems Notes sleeping and eating well Subjective Subjective Patient was seen & assessed and interval progress reviewed. Remains oriented, no signs of delirium. Remains agreeable to inpatient psychiatry treatment. Prefers to hold off on starting any medication for depression until she begins inpatient psychiatric treatment. Agreeable with discontinuing zyprexa given improvement in delirium. Physical Exam Psychiatric Orientation: alert and oriented x 3 Apperance: appropriately dressed and appropriately groomed Eye Contact: good eye contact Motor Behavior: no abnormal motor movements Speech: normal rate/rhythm/volume of speech Affect: + depressed affect and + anxious affect Mood: + depressed mood and + anxious mood Thought Process: goal directed thought process Thought Content: reality based without delusions Suicidal Thoughts: denies suicidal thoughts (s/p serious suicide attempt ) Homicidal Thoughts: denies homicidal thoughts Hallucinations: no auditory hallucinations and no visual hallucinations Cognition: attention grossly intact and language grossly intact Estimated Intelligence: consistent with education level Insight: + fair insight Judgment: + limited judgement Vital Signs (Past 24 Hours) Last Vital Signs Temp 36.5 C 09/10/22 12:33 Pulse 96 H 09/10/22 12:33 Resp 14 09/10/22 03:16 BP 109/71 09/10/22 12:33 Pulse Ox 95 09/10/22 12:33 O2 Del Method Room Air 09/10/22 12:33 O2 Flow Rate 3 09/05/22 21:00 Results & Data (U) Current Inpatient Medications Current Inpatient Medications: Current Inpatient Medications Acetaminophen (Acetaminophen 325 Mg Tab) 650 mg PO Q4H PRN PRN Reason: Pain or Fever Stop: 10/05/22 18:59 Last Admin: 09/08/22 23:49 Dose: 650 mg Al Hydrox/Mg Hydrox/Simethicone (Aluminum/Magnesium Susp 30 Ml Udc) 15 ml PO Q4H PRN PRN Reason: Dyspepsia Stop: 10/05/22 18:59 Amoxicillin/Clavulanate Potassium (Amoxicillin/Clavulanate 875 Mg Tab) 1 tab PO BIDM [facility]; Protocol Stop: 09/16/22 16:59 Last Admin: 09/10/22 09:07 Dose: 1 tab Calcium/Vitamin D (Calcium 600mg + Vit D 400 Iu Tab) 1 tab PO BID [facility] Stop: 10/10/22 20:59 Enoxaparin Sodium (Enoxaparin Inj 40 Mg/0.4 Ml Syr) 40 mg SQ QAM [facility] Stop: 10/10/22 08:59 Last Admin: 09/10/22 09:09 Dose: 40 mg Folic Acid (Folic Acid 1 Mg Tab) 1 mg PO QAM [facility] Stop: 10/09/22 08:59 Last Admin: 09/10/22 09:07 Dose: 1 mg Magnesium Hydroxide (Magnesium Hydroxide Susp 30 Ml Udc) 30 ml PO Q12H PRN PRN Reason: Constipation Stop: 10/05/22 18:59 Metoprolol Succinate (Metoprolol Succ 25mg Ext Rel Tab) 12.5 mg PO BID [facility] Stop: 10/06/22 20:59 Last Admin: 09/10/22 09:07 Dose: 12.5 mg Naloxone HCl (Naloxone Hcl 0.4 Mg/1 Ml Vial/Carp) 0.4 mg IV Q15M PRN PRN Reason: somnulenece, hypercarbia, hypo Stop: 10/05/22 22:17 Olanzapine (Olanzapine 10 Mg/2.1 Ml Sdv) 2.5 mg IM Q4H PRN PRN Reason: Anxiety/Agitation Stop: 10/06/22 23:10 Olanzapine (Olanzapine 2.5 Mg Tab) 2.5 mg PO [facility] Stop: 10/08/22 20:59 Last Admin: 09/09/22 20:55 Dose: 2.5 mg Ondansetron HCl (Ondansetron Inj 2 Mg/Ml 2 Ml Vial) 4 mg IV Q6H PRN PRN Reason: Nausea Stop: 10/05/22 18:59 Polyethylene Glycol (Polyethylene (Miralax) 17 Gm Pack) 17 gm PO DAILY PRN PRN Reason: Constipation Stop: 10/05/22 18:59 Thiamine HCl (Thiamine Hcl 100 Mg Tab) [facility] Stop: 10/09/22 08:59 Last Admin: 09/10/22 09:08 Dose: 100 mg
[2022-09-10 14:12] LABS: Appearance Urine Clear (Clear); Bacteria Urine Automated Negative (Negative); Bilirubin Urine Negative (Negative); Blood Urine 3+ (Negative); Color Urine Yellow; Glucose Urine UA Negative (Negative); Ketones Urine Negative (Negative); Leukocyte Esterase Urine Trace (Negative); Nitrite Urine Negative (Negative); Protein Urine Negative (Negative); RBC Urine Automated >30 /hpf (0-4); Urobilinogen Urine Negative (Negative); pH Urine 6.5 (4.5-7.5)
--- NOTE | 2022-09-10 15:55 | Hospitalist Progress Note ---
Date of Service September 10, 2022 Assessment & Plan (1) Overdose: (2) Unresponsiveness: (3) Sepsis: (4) Depression: (5) Aspiration pneumonia: Plan per Dr. Squires's notes with addendum: 71 year old with what appears to be intentional overdose. Found down; last week known 48 hours prior. Severe history of depression with known SI. H/O voluntary inpatient stay at the [facility] x3 days. UDS + for opioids and Benzos. Whole bottle of SSRI found next to her. Head CT negative. Intermittent somnolence. CXR suggestive of Aspiration PNA; will cover with Vanc + Unasyn. Lactate initially 4.8; will trend; suspect due to dehydration secondary to overdose. Narcan x2; suspect may need a Narcan infusion; discussed with Sumit Christie and will admit to ICU overnight. Lactic Acidosis secondary to infection and is complicated by overdose Unresponsiveness: Likely secondary to overdose Overdose likely with SSRI and Paxil--empty bottle was found beside patient Respiratory Acidosis: Admitted to ICU UDS + for Opioids and Benzos VBG 7.29, CO2 65, HCO3 31; received Narcan x2 Narcan x2 administered in ED 2L NSB given in ED; 0.9 NS @ 50mL/ maint fluids x2 bags; reassess mentation in AM Lactate 4.8; will trend-repeat lactate came back still elevated at 2.8 CXR concerning for aspiration PNA; Vanc + Unasyn ordered in ED; continue until cultures return Blood Cultures ordered-pending Urine culture is positive for gram-negative organism and further identification is pending Sputum Culture ordered-pending Suicide precautions-appreciate psychiatric input and recommendation for one-to-one sitter now and the patient cannot sign out AMA NPO for now; safe tray when cleared to eat Remains medically stable with improvement of hypercarbia and unresponsiveness Remains alert and awake but confused We will continue with one-to-one monitor and current medications Remains very sleepy and dose of Zyprexa has been decreased Hemodynamically stable and will require to continue with one-to-one sitter for now Has completely come around from unconscious episode Has been communicating normally and awaiting PT and OT evaluation Medically stable to be discharged to psychiatric care and awaiting physical therapy 09/10 Ordered urinalysis and urine culture for possible UTI No fever so far Patient medically stable to transfer to inpatient psychiatry unit once bed available Developed a flutter with variable block Heart rate went up to 150 Appreciate plate worker helper input and recommendation Has been started on intravenous heparin and intravenous beta-yvan Echo of the heart showed LV is normal in size, normal LV wall thickness, wall motion is normal, EF 60 to 65%, LA size is normal, aortic valve sclerosis mild without significant aortic stenosis and otherwise no significant valvular disease. Cardiology has been consulted-appreciate input and recommendation Electrolytes will be replaced accordingly and heparin will be discontinued when the electrolytes are normalized Potassium remains low and will be supplemented-heparin is discontinued Remains in sinus rhythm Does not require any further treatment for heart 09/10 In sinus rhythm Continue metoprolol 12.5 mg p.o. twice daily Rhabdomyolysis Was noted to be on the floor Initial CPK was 1848 and repeat came back higher at 2995 We will continue with intravenous fluid Monitor PRP and CPK-CPK has been improving Advised to drink more fluid 09/10 CK level trended down Aspiration PNA: Secondary to unresponsive episode CXR suggestive of aspiration PNA. Procalcitonin 1.77; Vanco + Unasyn started in ED; will continue for now Vancomycin has been discontinued and the patient is put on ceftriaxone for UTI NPO We will add Flagyl orally to cover anaerobes No fever and or chills and white count remains normal We will continue antibiotic for a total of 10 days 09/10 Continue Augmentin Depression: Has been voluntarily admitted to the [facility] 3-4 years ago for severe depression Takes Paroxetine; hold Bottle was found empty next to patient UDS + for Opioids and Benzos Psych consult placed -appreciate input and recommendation We will hold paroxetine for now Treatment as per psychiatrist 09/10 Transition to inpatient psych unit once bed is available Disposition: PCP: Dr. Thomas Code Status: Full Code VTE Prophylaxis: On Lovenox subcutaneous daily Remains stable to be transferred to telemetry unit plan of care discussed with patient in detail and at length all questions answered She is understanding, agreeable, comfortable with the plan of care Admission and Anticipated Discharge Date Admission Date: September 05, 2022 Subjective Follow-up for drug overdose, intentional, etc. Seen with lewis and XU Covarrubias at the bedside throughout whole encounter Sitting up in bed, comfortable, not in distress, good spirits States she feels improved overall Oriented x3, answers all questions appropriate no chest pain, dyspnea, palpitations, dizziness Denies depression, anxiety, suicidal ideations today Reports some lower abdominal discomfort, urethral discomfort Review of Systems Review of Systems: all noted and negative except for above Physical Exam Physical Exam: General- oriented x 3, not in distress, speaks in sentences with no effort or accessory muscle use Eyes- anicteric Neck- no JVD Lungs- clear breath sounds bilaterally, no rales/wheezes Heart- normal rate, regular rhythm; no murmurs Abdomen- normal bowel sounds, nondistended, soft, nontender Extremities- no pretibial edema, no calf tenderness Epps catheter in place: Yellow urine Neuro- alert, oriented x 3; no gross focal neurologic deficits Skin- warm & dry Results & Data Results & Data Vital Signs (Past 12 Hours) Vital Signs Temp Pulse Pulse BP BP Pulse Ox O2 Del Method 09/10/22 14:58 95 H 09/10/22 12:33 36.5 C 96 H 109/71 95 Room Air 09/10/22 09:21 36.4 C L 82 114/77 94 Room Air all noted and reviewed including below
[2022-09-10] MEDS: CALCIUM 600MG + VIT D 400 IU TAB PO SCH (22:05)
[2022-09-11] MEDS: ENOXAPARIN INJ 40 MG/0.4 ML SYR SQ SCH (08:17)
[2022-09-11] MEDS: METOPROLOL SUCC 25MG EXT REL TAB PO SCH ×2 (08:18→21:20)
[2022-09-11] MEDS: CALCIUM 600MG + VIT D 400 IU TAB PO SCH ×2 (08:18→23:36)
[2022-09-11] MEDS: AMOXICILLIN/CLAVULANATE 875 MG TAB PO SCH ×2 (08:18→18:22)
[2022-09-11] MEDS: FOLIC ACID 1 MG TAB PO SCH (08:18)
[2022-09-11] MEDS: THIAMINE HCL 100 MG TAB PO SCH (08:18)
[2022-09-11] MEDS: ACETAMINOPHEN 325 MG TAB PO PRN (08:22)
--- NOTE | 2022-09-11 18:21 | Hospitalist Progress Note ---
Date of Service September 11, 2022 Assessment & Plan (1) Overdose: (2) Unresponsiveness: (3) Sepsis: (4) Depression: (5) Aspiration pneumonia: Plan per Dr. Squires's notes with addendum: 71 year old with what appears to be intentional overdose. Found down; last week known 48 hours prior. Severe history of depression with known SI. H/O voluntary inpatient stay at the [facility] x3 days. UDS + for opioids and Benzos. Whole bottle of SSRI found next to her. Head CT negative. Intermittent somnolence. CXR suggestive of Aspiration PNA; will cover with Vanc + Unasyn. Lactate initially 4.8; will trend; suspect due to dehydration secondary to overdose. Narcan x2; suspect may need a Narcan infusion; discussed with Sumit Christie and will admit to ICU overnight. Lactic Acidosis secondary to infection and is complicated by overdose Unresponsiveness: Likely secondary to overdose Overdose likely with SSRI and Paxil--empty bottle was found beside patient Respiratory Acidosis: Admitted to ICU UDS + for Opioids and Benzos VBG 7.29, CO2 65, HCO3 31; received Narcan x2 Narcan x2 administered in ED 2L NSB given in ED; 0.9 NS @ 50mL/ maint fluids x2 bags; reassess mentation in AM Lactate 4.8; will trend-repeat lactate came back still elevated at 2.8 CXR concerning for aspiration PNA; Vanc + Unasyn ordered in ED; continue until cultures return Blood Cultures ordered-pending Urine culture is positive for gram-negative organism and further identification is pending Sputum Culture ordered-pending Suicide precautions-appreciate psychiatric input and recommendation for one-to-one sitter now and the patient cannot sign out AMA NPO for now; safe tray when cleared to eat Remains medically stable with improvement of hypercarbia and unresponsiveness Remains alert and awake but confused We will continue with one-to-one monitor and current medications Remains very sleepy and dose of Zyprexa has been decreased Hemodynamically stable and will require to continue with one-to-one sitter for now Has completely come around from unconscious episode Has been communicating normally and awaiting PT and OT evaluation Medically stable to be discharged to psychiatric care and awaiting physical therapy 09/14 Medically stable Afebrile Urine culture negative Repeat CBC, BMP, lactate, within normal limits EKG: Also unremarkable Urinalysis: Positive few RBCs Denies dysuria, abdominal pain Likely from recent Epps catheter insertion Recommend repeat urinalysis in 1 to 2 weeks and monitor closely Patient medically stable to transfer to inpatient psychiatry unit once bed available Developed a flutter with variable block Heart rate went up to 150 Appreciate spar machine operator helper input and recommendation Has been started on intravenous heparin and intravenous beta-yvan Echo of the heart showed LV is normal in size, normal LV wall thickness, wall motion is normal, EF 60 to 65%, LA size is normal, aortic valve sclerosis mild without significant aortic stenosis and otherwise no significant valvular disease. Cardiology has been consulted-appreciate input and recommendation Electrolytes will be replaced accordingly and heparin will be discontinued when the electrolytes are normalized Potassium remains low and will be supplemented-heparin is discontinued Remains in sinus rhythm Does not require any further treatment for heart 09/14 In sinus rhythm Continue metoprolol 12.5 mg p.o. twice daily Rhabdomyolysis Was noted to be on the floor Initial CPK was 1848 and repeat came back higher at 2995 We will continue with intravenous fluid Monitor PRP and CPK-CPK has been improving Advised to drink more fluid 09/14 CK level trended down Aspiration PNA: Secondary to unresponsive episode CXR suggestive of aspiration PNA. Procalcitonin 1.77; Currently on doxycycline Depression: Has been voluntarily admitted to the [facility] 3-4 years ago for severe depression Takes Paroxetine; hold Bottle was found empty next to patient UDS + for Opioids and Benzos Psych consult placed -appreciate input and recommendation We will hold paroxetine for now Treatment as per psychiatrist 09/14 Transition to inpatient psych unit once bed is available Bullae, bilateral heels Likely secondary to prolonged stay in bed during acute episode Case Management Associate consulted, Dr. Brandyn Eden, status post drainage at the bedside y Ruptured bullae site continues to heal Continue daily dressing Currently on doxycycline 100 mg twice daily Bacitracin twice a day Disposition: PCP: Dr. Thomas Code Status: Full Code VTE Prophylaxis: On Lovenox subcutaneous daily Awaiting bed at psych facility plan of care discussed with patient in detail and at length all questions answered She is understanding, agreeable, comfortable with the plan of care Admission and Anticipated Discharge Date Admission Date: September 05, 2022 Subjective Follow-up for drug overdose, etc. Seen sitting up in bed, comfortable, not in distress States she feels fine overall next no chest pain, dyspnea, palpitations, dizziness Bilateral heel pain improving No other symptoms Review of Systems Review of Systems: all noted and negative except for above Physical Exam Physical Exam: General- oriented x 3, not in distress, speaks in sentences with no effort or accessory muscle use Eyes- anicteric Neck- no JVD Lungs- clear BS BL, no rales/wheezing Heart- normal rate, regular rhythm; no murmurs Abdomen- normal bowel sounds, nondistended, soft, no tenderness Extremities- no pretibial edema, no calf tenderness Neuro- alert, oriented x 3; no gross focal neurologic deficits Skin- warm & dry Results & Data Results & Data Vital Signs (Past 12 Hours) Vital Signs Temp Pulse Pulse Resp BP Pulse Ox O2 Del Method 09/11/22 16:00 36.5 C 89 17 102/69 95 Room Air 09/11/22 16:00 81 09/11/22 10:57 36.4 C L 99 H 17 103/68 95 Room Air 09/11/22 08:32 Room Air 09/11/22 07:13 72 09/11/22 07:00 36.7 C 72 16 92/56 L 94 Room Air all noted and reviewed including below
[2022-09-11] MEDS: DOXYCYCLINE HYCLATE 100 MG CAP PO SCH (21:36)
--- NOTE | 2022-09-11 22:48 | Orthopedic Consultation ---
Date of Consultation September 11, 2022 Assessment & Plan (1) Bullae: Plan Patient seen, evaluated, and treated. Reviewed use of lower extremity compression as bullae prevention. Bullae drained with 20ml syringe and 20 gauge needle. ABD applied over right and left foot bullae followed by JACQUI for compression. Compression therapy is a important part of Patient's management. Thank you for allowing me to participate in the care of this Patient. History of Present Illness Attending Physician: Florentin Tse MD History of Present Illness Patient is a 71 year old female seen at bedside for bilateral ankle bullae. Patient has a past medical history of anxiety/depression and was admitted on due to . Patient is resting comfortably. She was admitted to [facility] through ED on 09/05/22 due to intentional overdose. Allergies Allergy/AdvReac Type Severity Reaction Status Date / Time Quinolones Allergy Severe DIZZY Verified 09/26/21 06:25 ANXIETY TINGLING IN ARMS Home Medications Medication Instructions Recorded Confirmed Type calcium 333 mg PO TID 09/03/21 09/26/21 History cholecalciferol (vitamin D3) 50 50 mcg PO QAM 09/03/21 09/26/21 History mcg (2,000 unit) tablet (Vitamin D3) paroxetine HCl 20 mg tablet 20 mg PO DAILY 09/05/22 09/05/22 History Patient History Medical History Anxiety hx Arthritis of left hip Aspiration pneumonia Depression hx History of anesthesia reaction "I woke up during surgery and they had to put me back under" Mood disorder hx Overdose Sepsis Unresponsiveness Surgical History History of esophagogastroduodenoscopy (EGD) History of lumbar surgery lumbar #5, 1995 Hx of colonoscopy Hx of total hip arthroplasty Lt. Family History Other No significant family history Social History Smoking Status: Unknown if ever smoked Second Hand Exposure: No; Do You Dip or Chew Tobacco: No; Hx Alcohol Use: No Hx Substance Use: Yes Last Used Substance: Just Prior to Arrival Substance Use Type Other:: benzos Preferred Language: Ukrainian Communication Ability: Effective Visual Impairment: Limited Hearing Ability: Normal Scientific Manager Required: No Beliefs That Will Affect Care: Spiritual Current Living Situation: Alone Feels Safe at Home: Yes Assistive Devices: None Review of Systems Review of Systems: All systems reviewed & are unremarkable except as noted in HPI & below Physical Exam Constitutional: cooperative and comfortable Respiratory: normal respiratory effort Cardiovascular: Vessels: normal peripheral pulses, posterior tibial pulses present and dorsalis pedis pulses present Extremities: normal capillary refill and + edema Musculoskeletal: Extremities: extremities normal to inspection Skin: + lesion (Right and left ankle bullae) Results & Data Vital Signs (Past 12 Hours) Vital Signs Temp Pulse Pulse Resp BP Pulse Ox O2 Del Method 09/11/22 19:19 36.7 C 110 H 18 114/74 97 Room Air 09/11/22 16:00 36.5 C 89 17 102/69 95 Room Air 09/11/22 16:00 81 09/11/22 10:57 36.4 C L 99 H 17 103/68 95 Room Air
[2022-09-12] MEDS: DOXYCYCLINE HYCLATE 100 MG CAP PO SCH ×2 (05:59→18:03)
[2022-09-12] MEDS: THIAMINE HCL 100 MG TAB PO SCH (08:28)
[2022-09-12] MEDS: METOPROLOL SUCC 25MG EXT REL TAB PO SCH ×2 (08:28→21:28)
[2022-09-12] MEDS: FOLIC ACID 1 MG TAB PO SCH (08:29)
[2022-09-12] MEDS: CALCIUM 600MG + VIT D 400 IU TAB PO SCH ×2 (08:29→21:29)
[2022-09-12] MEDS: ENOXAPARIN INJ 40 MG/0.4 ML SYR SQ SCH (08:29)
--- NOTE | 2022-09-12 18:36 | Hospitalist Progress Note ---
Date of Service September 12, 2022 Assessment & Plan (1) Overdose: (2) Unresponsiveness: (3) Sepsis: (4) Depression: (5) Aspiration pneumonia: Plan per Dr. Squires's notes with addendum: 71 year old with what appears to be intentional overdose. Found down; last week known 48 hours prior. Severe history of depression with known SI. H/O voluntary inpatient stay at the [facility] x3 days. UDS + for opioids and Benzos. Whole bottle of SSRI found next to her. Head CT negative. Intermittent somnolence. CXR suggestive of Aspiration PNA; will cover with Vanc + Unasyn. Lactate initially 4.8; will trend; suspect due to dehydration secondary to overdose. Narcan x2; suspect may need a Narcan infusion; discussed with Sumit Christie and will admit to ICU overnight. Lactic Acidosis secondary to infection and is complicated by overdose Unresponsiveness: Likely secondary to overdose Overdose likely with SSRI and Paxil--empty bottle was found beside patient Respiratory Acidosis: Admitted to ICU UDS + for Opioids and Benzos VBG 7.29, CO2 65, HCO3 31; received Narcan x2 Narcan x2 administered in ED 2L NSB given in ED; 0.9 NS @ 50mL/ maint fluids x2 bags; reassess mentation in AM Lactate 4.8; will trend-repeat lactate came back still elevated at 2.8 CXR concerning for aspiration PNA; Vanc + Unasyn ordered in ED; continue until cultures return Blood Cultures ordered-pending Urine culture is positive for gram-negative organism and further identification is pending Sputum Culture ordered-pending Suicide precautions-appreciate psychiatric input and recommendation for one-to-one sitter now and the patient cannot sign out AMA NPO for now; safe tray when cleared to eat Remains medically stable with improvement of hypercarbia and unresponsiveness Remains alert and awake but confused We will continue with one-to-one monitor and current medications Remains very sleepy and dose of Zyprexa has been decreased Hemodynamically stable and will require to continue with one-to-one sitter for now Has completely come around from unconscious episode Has been communicating normally and awaiting PT and OT evaluation Medically stable to be discharged to psychiatric care and awaiting physical therapy 09/12 Medically stable Afebrile Urine culture negative Patient medically stable to transfer to inpatient psychiatry unit once bed available Developed a flutter with variable block Heart rate went up to 150 Appreciate disposal man input and recommendation Has been started on intravenous heparin and intravenous beta-yvan Echo of the heart showed LV is normal in size, normal LV wall thickness, wall motion is normal, EF 60 to 65%, LA size is normal, aortic valve sclerosis mild without significant aortic stenosis and otherwise no significant valvular disease. Cardiology has been consulted-appreciate input and recommendation Electrolytes will be replaced accordingly and heparin will be discontinued when the electrolytes are normalized Potassium remains low and will be supplemented-heparin is discontinued Remains in sinus rhythm Does not require any further treatment for heart 09/12 In sinus rhythm Continue metoprolol 12.5 mg p.o. twice daily Rhabdomyolysis Was noted to be on the floor Initial CPK was 1848 and repeat came back higher at 2995 We will continue with intravenous fluid Monitor PRP and CPK-CPK has been improving Advised to drink more fluid 09/12 CK level trended down Aspiration PNA: Secondary to unresponsive episode CXR suggestive of aspiration PNA. Procalcitonin 1.77; Vanco + Unasyn started in ED; will continue for now Vancomycin has been discontinued and the patient is put on ceftriaxone for UTI NPO We will add Flagyl orally to cover anaerobes No fever and or chills and white count remains normal We will continue antibiotic for a total of 10 days 09/12 Currently on doxycycline Depression: Has been voluntarily admitted to the [facility] 3-4 years ago for severe depression Takes Paroxetine; hold Bottle was found empty next to patient UDS + for Opioids and Benzos Psych consult placed -appreciate input and recommendation We will hold paroxetine for now Treatment as per psychiatrist 09/12 Transition to inpatient psych unit once bed is available Bullae, bilateral heels Likely secondary to prolonged stay in bed during acute episode Business Banking Sales Assistant consulted, Dr. Brandyn Eden, status post drainage at the bedside yesterday Site seems to be healing Currently on doxycycline 100 mg twice daily Disposition: PCP: Dr. Thomas Code Status: Full Code VTE Prophylaxis: On Lovenox subcutaneous daily Remains stable to be transferred to inpatient psychiatry unit plan of care discussed with patient in detail and at length all questions answered She is understanding, agreeable, comfortable with the plan of care Admission and Anticipated Discharge Date Admission Date: September 05, 2022 Subjective Follow-up for intentional overdose, etc. Seen with XU Davis at the bedside throughout whole encounter Patient sitting up in bed, comfortable, in good spirits States she feels fine overall Bilateral heel pain improving after drainage last evening Denies fevers or chills, problems with urination Appetite is good Anxious regarding being transferred to a new facility, patient reassured No other symptoms Review of Systems Review of Systems: all noted and negative except for above Physical Exam Physical Exam: General- oriented x 3, not in distress, speaks in sentences with no effort or accessory muscle use Eyes- anicteric Neck- no JVD Lungs- clear breath sounds bilaterally, no rales/wheezes Heart- normal rate, regular rhythm; no murmurs Abdomen- normal bowel sounds, nondistended, soft, nontender Extremities- no pretibial edema, no calf tenderness Bilateral heels-ruptured bullae, minimal surrounding erythema, no warmth or tenderness Neuro- alert, oriented x 3; no gross focal neurologic deficits Skin- warm & dry Results & Data Results & Data Vital Signs (Past 12 Hours) Vital Signs Temp Pulse Pulse Resp BP BP Pulse Ox 09/12/22 15:27 97 H 09/12/22 15:03 36.7 C 93 H 20 104/66 96 09/12/22 11:34 37.0 C 93 H 16 100/70 95 09/12/22 08:26 96 H 108/73 98 09/12/22 08:20 37.2 C 95 H 16 95/61 L 94 09/12/22 07:22 113 H O2 Del Method 09/12/22 15:27 09/12/22 15:03 Room Air 09/12/22 11:34 Room Air 09/12/22 08:26 Room Air 09/12/22 08:20 Room Air 09/12/22 07:22 all noted and reviewed including below
[2022-09-12] MEDS: ACETAMINOPHEN 325 MG TAB PO PRN (21:43)
[2022-09-13] MEDS: DOXYCYCLINE HYCLATE 100 MG CAP PO SCH ×2 (09:08→20:46)
[2022-09-13] MEDS: FOLIC ACID 1 MG TAB PO SCH (09:09)
[2022-09-13] MEDS: METOPROLOL SUCC 25MG EXT REL TAB PO SCH ×2 (09:09→20:46)
[2022-09-13] MEDS: ENOXAPARIN INJ 40 MG/0.4 ML SYR SQ SCH ×2 (09:09→09:12)
[2022-09-13] MEDS: THIAMINE HCL 100 MG TAB PO SCH (09:10)
[2022-09-13 09:57] LABS: Basophils # (auto) 0.03 K/uL (0-0.2); Basophils % (auto) 0.5 %; Eosinophils # (auto) 0.13 K/uL (0-0.50); Eosinophils % (auto) 2.1 %; Hematocrit (blood only) 42.5 % (37.0-47.0); Hemoglobin 13.8 g/dl (12.0-16.0); Immature Granulocytes # (auto) 0.13 K/uL (0.01-0.20); Immature Granulocytes % (auto) 2.1 %; Lymphocytes # (auto) 1.57 K/uL (1.2-3.4); Lymphocytes % (auto) 25.4 %; Mean Corpuscular Hemoglobin 29.4 pg (25.0-34.0); Mean Corpuscular Hgb Conc 32.5 g/dL (32.0-36.0); Mean Corpuscular Volume 90.6 fL (80.0-100.0); Mean Platelet Volume 10.9 fL (9.4-12.4); Monocytes # (auto) 0.38 K/uL (0.11-0.59); Monocytes % (auto) 6.2 %; Neutrophils # (auto) 3.93 K/uL (1.40-6.50); Neutrophils % (auto) 63.7 %; Platelet Count 307 K/uL (130-400); RDW Coefficient of Variation 12.6 % (11.5-14.5); RDW Standard Deviation 41.4 fL (36.4-46.3); Red Blood Count 4.69 M/uL (4.20-5.40); White Blood Count 6.17 K/ul (4.8-10.8)
[2022-09-13 09:59] LABS: Albumin Globulin Ratio 1.1 (0.9-2); Albumin Level 3.5 gm/dl (3.4-5.0); BUN Creatinine Ratio 43.1 (10-20); Bilirubin,Total 0.4 mg/dl (0.2-1.0); Calcium 9.4 mg/dl (8.6-10.3); Creatinine Clr Calc Pharmacy 73.5 ml/min; Est GFR (African American) 112.1 ml/min; Est GFR (Non-African American) 96.7 ml/min; Globulin 3.1 gm/dl (2.5-4.0); Potassium 3.8 mmol/L (3.5-5.1); Total Protein 6.6 gm/dl (6.0-8.3)
[2022-09-13] MEDS: CALCIUM 600MG + VIT D 400 IU TAB PO SCH ×2 (11:24→20:46)
--- NOTE | 2022-09-13 14:54 | Hospitalist Progress Note ---
Date of Service September 13, 2022 Assessment & Plan (1) Overdose: (2) Unresponsiveness: (3) Sepsis: (4) Depression: (5) Aspiration pneumonia: Plan per Dr. Squires's notes with addendum: 71 year old with what appears to be intentional overdose. Found down; last week known 48 hours prior. Severe history of depression with known SI. H/O voluntary inpatient stay at the [facility] x3 days. UDS + for opioids and Benzos. Whole bottle of SSRI found next to her. Head CT negative. Intermittent somnolence. CXR suggestive of Aspiration PNA; will cover with Vanc + Unasyn. Lactate initially 4.8; will trend; suspect due to dehydration secondary to overdose. Narcan x2; suspect may need a Narcan infusion; discussed with Sumit Christie and will admit to ICU overnight. Lactic Acidosis secondary to infection and is complicated by overdose Unresponsiveness: Likely secondary to overdose Overdose likely with SSRI and Paxil--empty bottle was found beside patient Respiratory Acidosis: Admitted to ICU UDS + for Opioids and Benzos VBG 7.29, CO2 65, HCO3 31; received Narcan x2 Narcan x2 administered in ED 2L NSB given in ED; 0.9 NS @ 50mL/ maint fluids x2 bags; reassess mentation in AM Lactate 4.8; will trend-repeat lactate came back still elevated at 2.8 CXR concerning for aspiration PNA; Vanc + Unasyn ordered in ED; continue until cultures return Blood Cultures ordered-pending Urine culture is positive for gram-negative organism and further identification is pending Sputum Culture ordered-pending Suicide precautions-appreciate psychiatric input and recommendation for one-to-one sitter now and the patient cannot sign out AMA NPO for now; safe tray when cleared to eat Remains medically stable with improvement of hypercarbia and unresponsiveness Remains alert and awake but confused We will continue with one-to-one monitor and current medications Remains very sleepy and dose of Zyprexa has been decreased Hemodynamically stable and will require to continue with one-to-one sitter for now Has completely come around from unconscious episode Has been communicating normally and awaiting PT and OT evaluation Medically stable to be discharged to psychiatric care and awaiting physical therapy 09/13 Medically stable Afebrile Urine culture negative Repeat CBC, BMP, lactate, within normal limits EKG: Also unremarkable Urinalysis: Positive few RBCs Denies dysuria, abdominal pain Likely from recent Epps catheter insertion Recommend repeat urinalysis in 1 to 2 weeks and monitor closely Patient medically stable to transfer to inpatient psychiatry unit once bed available Developed a flutter with variable block Heart rate went up to 150 Appreciate canal superintendent input and recommendation Has been started on intravenous heparin and intravenous beta-yvan Echo of the heart showed LV is normal in size, normal LV wall thickness, wall motion is normal, EF 60 to 65%, LA size is normal, aortic valve sclerosis mild without significant aortic stenosis and otherwise no significant valvular disease. Cardiology has been consulted-appreciate input and recommendation Electrolytes will be replaced accordingly and heparin will be discontinued when the electrolytes are normalized Potassium remains low and will be supplemented-heparin is discontinued Remains in sinus rhythm Does not require any further treatment for heart 09/13 In sinus rhythm Continue metoprolol 12.5 mg p.o. twice daily Rhabdomyolysis Was noted to be on the floor Initial CPK was 1848 and repeat came back higher at 2995 We will continue with intravenous fluid Monitor PRP and CPK-CPK has been improving Advised to drink more fluid 09/13 CK level trended down Aspiration PNA: Secondary to unresponsive episode CXR suggestive of aspiration PNA. Procalcitonin 1.77; Vanco + Unasyn started in ED; will continue for now Vancomycin has been discontinued and the patient is put on ceftriaxone for UTI NPO We will add Flagyl orally to cover anaerobes No fever and or chills and white count remains normal We will continue antibiotic for a total of 10 days 09/13 Currently on doxycycline Depression: Has been voluntarily admitted to the [facility] 3-4 years ago for severe depression Takes Paroxetine; hold Bottle was found empty next to patient UDS + for Opioids and Benzos Psych consult placed -appreciate input and recommendation We will hold paroxetine for now Treatment as per psychiatrist 09/13 Transition to inpatient psych unit once bed is available Bullae, bilateral heels Likely secondary to prolonged stay in bed during acute episode Tribal Judge consulted, Dr. Brandyn Eden, status post drainage at the bedside yesterday Ruptured bullae site continues to heal Continue daily dressing Currently on doxycycline 100 mg twice daily Disposition: PCP: Dr. Thomas Code Status: Full Code VTE Prophylaxis: On Lovenox subcutaneous daily Remains stable to be transferred to inpatient psychiatry unit plan of care discussed with patient in detail and at length all questions answered She is understanding, agreeable, comfortable with the plan of care Admission and Anticipated Discharge Date Admission Date: September 05, 2022 Subjective Follow-up for drug overdose, etc. Seen with XU Pineda at the bedside throughout whole encounter Seen up in bed, comfortable, not in distress in good spirits States she feels fine overall Bilateral heel pain improving No fevers or chills no chest pain, dyspnea, palpitations, dizziness No any other symptoms Review of Systems Review of Systems: all noted and negative except for above Physical Exam Physical Exam: General- oriented x 3, not in distress, speaks in sentences with no effort or accessory muscle use Eyes- anicteric Neck- no JVD Lungs- clear BS BL Heart- normal rate, regular rhythm; no murmurs Abdomen- normal bowel sounds, nondistended, soft, no tenderness Extremities- no pretibial edema, no calf tenderness Bilateral heels-ruptured bullae healing well, minimal surrounding erythema on that right heel, not on the left Neuro- alert, oriented x 3; no gross focal neurologic deficits Skin- warm & dry Results & Data Results & Data Vital Signs (Past 12 Hours) Vital Signs Temp Pulse Pulse Resp BP BP Pulse Ox 09/13/22 11:29 69 09/13/22 09:01 36.6 C 83 16 93/66 L 94 09/13/22 04:34 36.7 C 73 16 108/67 98 O2 Del Method 09/13/22 11:29 09/13/22 09:01 Room Air 09/13/22 04:34 Room Air all noted and reviewed including below
[2022-09-13 18:41] LABS: Appearance Urine Clear (Clear); Bacteria Urine Automated Negative (Negative); Bilirubin Urine Negative (Negative); Blood Urine Negative (Negative); Color Urine Yellow; Glucose Urine UA Negative (Negative); Ketones Urine Negative (Negative); Leukocyte Esterase Urine Trace (Negative); Nitrite Urine Negative (Negative); Protein Urine Negative (Negative); RBC Urine Automated 0-4 /hpf (0-4); Specific Gravity Urine 1.022 (1.000-1.030); Urobilinogen Urine Negative (Negative); pH Urine 5.5 (4.5-7.5)
[2022-09-13] MEDS: ACETAMINOPHEN 325 MG TAB PO PRN (20:47)
[2022-09-14] MEDS: ENOXAPARIN INJ 40 MG/0.4 ML SYR SQ SCH (09:02)
[2022-09-14] MEDS: DOXYCYCLINE HYCLATE 100 MG CAP PO SCH ×2 (09:04→18:36)
[2022-09-14] MEDS: FOLIC ACID 1 MG TAB PO SCH (09:05)
[2022-09-14] MEDS: METOPROLOL SUCC 25MG EXT REL TAB PO SCH ×2 (09:05→21:25)
[2022-09-14] MEDS: THIAMINE HCL 100 MG TAB PO SCH (09:05)
[2022-09-14] MEDS: CALCIUM 600MG + VIT D 400 IU TAB PO SCH ×2 (11:09→21:25)
[2022-09-14] MEDS: BACITRACIN OINT 15 GM TUBE EXT SCH ×2 (16:00→21:25)
--- NOTE | 2022-09-15 05:51 | Electrocardiogram Report ---
Test Reason : Blood Pressure : / mmHG Vent. Rate : 083 BPM Atrial Rate : 083 BPM P-R Int : 138 ms QRS Dur : 076 ms QT Int : 366 ms P-R-T Axes : 061 058 040 degrees QTc Int : 430 ms Normal sinus rhythm Septal infarct , age undetermined Abnormal ECG When compared with ECG of 08-SEP-2022 08:05, Septal infarct is now Present Confirmed by Ori Waller ([id number]) on 09/15/2022 5:50:56 AM Referred By: REFERRED SELF Confirmed By:Ori Waller
[2022-09-15] MEDS: DOXYCYCLINE HYCLATE 100 MG CAP PO SCH ×2 (06:03→18:06)
[2022-09-15] MEDS: BACITRACIN OINT 15 GM TUBE EXT SCH ×2 (08:37→20:01)
[2022-09-15] MEDS: FOLIC ACID 1 MG TAB PO SCH (08:38)
[2022-09-15] MEDS: ENOXAPARIN INJ 40 MG/0.4 ML SYR SQ SCH (08:38)
[2022-09-15] MEDS: METOPROLOL SUCC 25MG EXT REL TAB PO SCH ×2 (08:38→20:00)
[2022-09-15] MEDS: THIAMINE HCL 100 MG TAB PO SCH (08:38)
[2022-09-15] MEDS: CALCIUM 600MG + VIT D 400 IU TAB PO SCH ×2 (08:38→20:01)
--- NOTE | 2022-09-15 18:16 | Hospitalist Progress Note ---
Date of Service September 15, 2022 Assessment & Plan (1) Overdose: (2) Unresponsiveness: (3) Sepsis: (4) Depression: (5) Aspiration pneumonia: Plan per Dr. Squires's notes with addendum: 71 year old with what appears to be intentional overdose. Found down; last week known 48 hours prior. Severe history of depression with known SI. H/O voluntary inpatient stay at the [facility] x3 days. UDS + for opioids and Benzos. Whole bottle of SSRI found next to her. Head CT negative. Intermittent somnolence. CXR suggestive of Aspiration PNA; will cover with Vanc + Unasyn. Lactate initially 4.8; will trend; suspect due to dehydration secondary to overdose. Narcan x2; suspect may need a Narcan infusion; discussed with Sumit Christie and will admit to ICU overnight. Lactic Acidosis secondary to infection and is complicated by overdose Unresponsiveness: Likely secondary to overdose Overdose likely with SSRI and Paxil--empty bottle was found beside patient Respiratory Acidosis: Admitted to ICU UDS + for Opioids and Benzos VBG 7.29, CO2 65, HCO3 31; received Narcan x2 Narcan x2 administered in ED 2L NSB given in ED; 0.9 NS @ 50mL/ maint fluids x2 bags; reassess mentation in AM Lactate 4.8; will trend-repeat lactate came back still elevated at 2.8 CXR concerning for aspiration PNA; Vanc + Unasyn ordered in ED; continue until cultures return Blood Cultures ordered-pending Urine culture is positive for gram-negative organism and further identification is pending Sputum Culture ordered-pending Suicide precautions-appreciate psychiatric input and recommendation for one-to-one sitter now and the patient cannot sign out AMA NPO for now; safe tray when cleared to eat Remains medically stable with improvement of hypercarbia and unresponsiveness Remains alert and awake but confused We will continue with one-to-one monitor and current medications Remains very sleepy and dose of Zyprexa has been decreased Hemodynamically stable and will require to continue with one-to-one sitter for now Has completely come around from unconscious episode Has been communicating normally and awaiting PT and OT evaluation Medically stable to be discharged to psychiatric care and awaiting physical therapy 09/15 Medically stable Afebrile Urine culture negative Repeat CBC, BMP, lactate, within normal limits EKG: Also unremarkable Urinalysis: Positive few RBCs Denies dysuria, abdominal pain Likely from recent Epps catheter insertion Recommend repeat urinalysis in 1 to 2 weeks and monitor closely Patient medically stable to transfer to inpatient psychiatry unit once bed available Developed a flutter with variable block Heart rate went up to 150 Appreciate saw handle assembler input and recommendation Has been started on intravenous heparin and intravenous beta-yvan Echo of the heart showed LV is normal in size, normal LV wall thickness, wall motion is normal, EF 60 to 65%, LA size is normal, aortic valve sclerosis mild without significant aortic stenosis and otherwise no significant valvular disease. Cardiology has been consulted-appreciate input and recommendation Electrolytes will be replaced accordingly and heparin will be discontinued when the electrolytes are normalized Potassium remains low and will be supplemented-heparin is discontinued Remains in sinus rhythm Does not require any further treatment for heart 09/15 In sinus rhythm Continue metoprolol 12.5 mg p.o. twice daily Rhabdomyolysis Was noted to be on the floor Initial CPK was 1848 and repeat came back higher at 2995 We will continue with intravenous fluid Monitor PRP and CPK-CPK has been improving Advised to drink more fluid 09/15 CK level trended down Aspiration PNA: Secondary to unresponsive episode CXR suggestive of aspiration PNA. Procalcitonin 1.77; Currently on doxycycline Depression: Has been voluntarily admitted to the [facility] 3-4 years ago for severe depression Takes Paroxetine; hold Bottle was found empty next to patient UDS + for Opioids and Benzos Psych consult placed -appreciate input and recommendation We will hold paroxetine for now Treatment as per psychiatrist 09/15 Transition to inpatient psych unit once bed is available Bullae, bilateral heels Likely secondary to prolonged stay in bed during acute episode Knuckler consulted, Dr. Brandyn Eden, status post drainage at the bedside y Healing well Continue daily dressing Currently on doxycycline 100 mg twice daily Bacitracin twice a day Disposition: PCP: Dr. Thomas Code Status: Full Code VTE Prophylaxis: On Lovenox subcutaneous daily Awaiting bed at psych facility plan of care discussed with patient in detail and at length all questions answered She is understanding, agreeable, comfortable with the plan of care Admission and Anticipated Discharge Date Admission Date: September 05, 2022 Subjective Follow-up for drug overdose, intentional, etc. Seen sitting up in bed, RODNEY Smith at the bedside throughout whole encounter Comfortable, not in distress States she feels fine overall no chest pain, dyspnea, palpitations, dizziness Ambulating in the hallways with no problems Denies problems with urination Bilateral heel pain improving Review of Systems Review of Systems: all noted and negative except for above Physical Exam Physical Exam: General- oriented x 3, not in distress, speaks in sentences with no effort or accessory muscle use Eyes- anicteric Neck- no JVD Lungs- clear BS BL Heart- normal rate, regular rhythm; no murmurs Abdomen- normal bowel sounds, nondistended, soft, nontender Extremities- no pretibial edema, no calf tenderness Bilateral heel ruptured bullae: Healing well Neuro- alert, oriented x 3; no gross focal neurologic deficits Skin- warm & dry Psych-denies depression or anxiety symptoms today Results & Data Results & Data Vital Signs (Past 12 Hours) Vital Signs Temp Pulse Pulse Resp BP Pulse Ox O2 Del Method 09/15/22 15:00 68 09/15/22 15:35 36.6 C 80 18 94/62 L 98 Room Air 09/15/22 08:00 82 09/15/22 11:34 36.6 C 78 18 106/63 94 Room Air 09/15/22 07:46 36.8 C 77 16 113/71 93 Room Air all noted and reviewed including below
--- NOTE | 2022-09-15 22:17 | Electrocardiogram Report ---
Test Reason : Blood Pressure : / mmHG Vent. Rate : 086 BPM Atrial Rate : 086 BPM P-R Int : 130 ms QRS Dur : 078 ms QT Int : 356 ms P-R-T Axes : 037 058 054 degrees QTc Int : 426 ms Normal sinus rhythm Normal ECG When compared with ECG of 12-SEP-2022 21:37, Criteria for Septal infarct are no longer Present T wave inversion no longer evident in Anterior leads Confirmed by Ori Waller ([id number]) on 09/15/2022 10:16:42 PM Referred By: REFERRED SELF Confirmed By:Ori Waller
[2022-09-16] MEDS: ACETAMINOPHEN 325 MG TAB PO PRN (05:06)
[2022-09-16] MEDS: DOXYCYCLINE HYCLATE 100 MG CAP PO SCH ×2 (06:03→20:44)
[2022-09-16] MEDS: METOPROLOL SUCC 25MG EXT REL TAB PO SCH ×2 (09:09→20:44)
[2022-09-16] MEDS: FOLIC ACID 1 MG TAB PO SCH (09:09)
[2022-09-16] MEDS: BACITRACIN OINT 15 GM TUBE EXT SCH ×2 (09:09→20:44)
[2022-09-16] MEDS: CALCIUM 600MG + VIT D 400 IU TAB PO SCH ×2 (09:09→20:44)
[2022-09-16] MEDS: THIAMINE HCL 100 MG TAB PO SCH (09:09)
[2022-09-16] MEDS: ENOXAPARIN INJ 40 MG/0.4 ML SYR SQ SCH (09:10)
--- NOTE | 2022-09-16 17:37 | Hospitalist Progress Note ---
Date of Service September 16, 2022 Assessment & Plan (1) Overdose: (2) Unresponsiveness: (3) Sepsis: (4) Depression: (5) Aspiration pneumonia: Plan per Dr. Squires's notes with addendum: 71 year old with what appears to be intentional overdose. Found down; last week known 48 hours prior. Severe history of depression with known SI. H/O voluntary inpatient stay at the [facility]] x3 days. UDS + for opioids and Benzos. Whole bottle of SSRI found next to her. Head CT negative. Intermittent somnolence. CXR suggestive of Aspiration PNA; will cover with Vanc + Unasyn. Lactate initially 4.8; will trend; suspect due to dehydration secondary to overdose. Narcan x2; suspect may need a Narcan infusion; discussed with Sumit Christie and will admit to ICU overnight. Lactic Acidosis secondary to infection and is complicated by overdose Unresponsiveness: Likely secondary to overdose Overdose likely with SSRI and Paxil--empty bottle was found beside patient Respiratory Acidosis: Admitted to ICU UDS + for Opioids and Benzos VBG 7.29, CO2 65, HCO3 31; received Narcan x2 Narcan x2 administered in ED CXR concerning for aspiration PNA; Vanc + Unasyn ordered in ED; continue until cultures return Patient gradually improved Hypercarbia resolved Transfer to [facility] telemetry 09/16 Has remained medically stable Afebrile Urine culture negative Repeat CBC, BMP, lactate, within normal limits EKG: Also unremarkable Urinalysis: Positive few RBCs Denies dysuria, abdominal pain Likely from recent Epps catheter insertion Recommend repeat urinalysis in 1 to 2 weeks and monitor closely Patient medically stable to transfer to inpatient psychiatry unit once bed avai lable Episode of atrial flutter with variable block Heart rate went up to 150 Placed on IV heparin and IV beta-yvan Echo of the heart showed LV is normal in size, normal LV wall thickness, wall motion is normal, EF 60 to 65%, LA size is normal, aortic valve sclerosis mild without significant aortic stenosis and otherwise no significant valvular disease. Cardiology consult, placed on metoprolol 12.5 mg p.o. twice a day 09/16 In sinus rhythm Continue metoprolol 12.5 mg p.o. twice daily Rhabdomyolysis Was noted to be on the floor Initial CPK was 1848 and repeat came back higher at 2995 Given IV fluids 09/16 CK level trended down Aspiration PNA: Secondary to unresponsive episode CXR suggestive of aspiration PNA. Procalcitonin 1.77 Currently on doxycycline 100 mg p.o. twice daily day #6 Depression: Has been voluntarily admitted to the [facility][1] 3-4 years ago for severe depression Takes Paroxetine; hold Bottle was found empty next to patient UDS + for Opioids and Benzos Psych consult placed Paroxetine held / Transition to inpatient psych unit once bed is available Bullae, bilateral heels Likely secondary to prolonged stay in bed during acute episode Farmworker Cranberry consulted, Dr. Brandyn Eden, status post drainage at the bedside y Healing well Continue daily dressing Currently on doxycycline 100 mg twice daily day number 6 out of 7 Bacitracin twice a day Disposition: PCP: Dr. Thomas Code Status: Full Code VTE Prophylaxis: On Lovenox subcutaneous daily Awaiting bed at psych facility plan of care discussed with patient in detail and at length all questions answered She is understanding, agreeable, comfortable with the plan of care Admission and Anticipated Discharge Date Admission Date: September 05, 2022 Subjective Follow-up for intentional drug overdose, etc. Seen with PORT WARDEN at the bedside one-to-one observation Sitting up, comfortable, not in distress States she feels fine overall no chest pain, dyspnea, palpitations, dizziness Bilateral heel pain improving No fevers or chills Ambulating with her walker, no problems No other symptoms Review of Systems Review of Systems: all noted and negative except for above Physical Exam Physical Exam: General- oriented x 3, not in distress, speaks in sentences with no effort or accessory muscle use Eyes- anicteric Neck- no JVD Lungs- clear breath sounds bilaterally, no rales/wheezes Heart- normal rate, regular rhythm; no murmurs Abdomen- normal bowel sounds, nondistended, soft, nontender Extremities- no pretibial edema, no calf tenderness Neuro- alert, oriented x 3; no gross focal neurologic deficits Skin- warm & dry Results & Data Results & Data Vital Signs (Past 12 Hours) Vital Signs Temp Pulse Pulse Resp BP Pulse Ox O2 Del Method 09/16/22 15:42 87 09/16/22 15:34 36.6 C 82 18 120/73 99 Room Air 09/16/22 13:02 36.4 C L 69 16 108/70 99 Room Air 09/16/22 08:22 66 09/16/22 07:59 36.6 C 70 16 100/58 L 98 Room Air all noted and reviewed including below
--- NOTE | 2022-09-16 18:03 | Psychiatric Progress Note ---
Date of Service September 16, 2022 Impression / Recommendations Impression I've been asked to reassess pt, who has been here for 11 days following overdose with suicidal intent on what seems to have been a combination of paroxetine, opioid, and benzodiazepine. She devoloped aspiration pneumonia and sepsis and was very confused during the early part of the stay. Dr. Russell recommended psychiatric hospitalization as soon as the patiet was medically stable. At this point, pt has been determined to be medically stable, but an appropriate psychiatric bed has not yet been found. She is currently ordered no psychiatric medication, which following the overdose made perfect sense. Pt tells me she feels much better and denies any suicidal thoughts. She presents as cheerful and appropriate. She acknowledges that her overdose was intended as suicidal but says she's "really glad it didn't work". She is very interested in outpatient treatment but is no longer interested in inpatient treatment. I recommended resuming medication, but she says the only one that really worked for her but that numerous psychiatrists have told her that it is unsafe to take by people her age. I told her that my specialty is geriatric psychiatry and I think of it as a preferred medication in the elderly and that the only age- related warning of which I'm aware is for adolescents, but she assures me that she's repeatedly been told this by multiple psychiatrists over the years. 09/06/2022: This is a 71 yo admitted medically following an intentional overdose suicide attempt. Diagnostically consistent with MDD though difficult to fully assess given her level of confusion, agitation, tearfulness today. Acute risk of self-harm remains elevated and high given suicide attempt requiring medical admission, major depressive symptoms, ongoing SI with desire to , upset at having survived the attempt, hopelessness, limited insight, substance use suspoected (positive UDS on initial screen for opioids and benzos), and high psychic distress. Given elevated risk of harm to self they meet criteria for inpatient psychiatric care for diagnostic clarification, safety/stabilization, development of additional coping skills, medication management and disposition/safety planning once medically stable. If they do not agree to voluntary treatment at that time they will meet criteria for 302 status based on severity of suicide attempt and ongoing modifiable risk factors. 09/10/2022: No further delirium. Agreeable with inpatient psychiatric hospitalization once medically stable for depression and serious suicide attempt. (1) Major depression, recurrent: (2) Suicide attempt by drug ingestion: Plan 09/16/2022: At this time I do not believe pt meets criteria for emergency involuntary psychiatric admission. I don't think there would necessarily be a great deal for her to gain from inpatient treatment even if she were willing. I believe it would be safe to discharge her to home. * I recommended pt consider resuming fluoxetine but she's unwilling due to mysterious warnings she says she's been given * I suggested she consider resuming the paroxetine since she's only had a brief trial, but she declines due to feeling as if she doesn't currently need medication. 09/10/2022: -Continue 1-on-1 for risk of harm to self -Do not discharge or allow to leave AMA, if attempts call security and psych liason as meets criteria for 302 -discontinue zyprexa -Once medically cleared will plan for psychiatric hospitalization (either 201 or 302 status). Interval History Identifying Information 71 yo woman with history of depression who was admitted medically after being found unresponsive after a neighbor was concerned a stopped by to do a welfare check. Psychiatry consulted for risk assessment and recommendations. Chief Complaint "I'm really a lot better". Subjective Subjective Patient was seen & assessed and interval progress reviewed in a multidisciplinary team meeting with psychiatric liaison nursing and social work. For details, see the "Impression" section below. Physical Exam Psychiatric Orientation: alert, oriented to person, oriented to place, oriented to time and cooperative Apperance: appropriately dressed and appropriately groomed Eye Contact: good eye contact and + poor eye contact Motor Behavior: no abnormal motor movements and + psychomotor agitation Speech: normal rate/rhythm/volume of speech Affect: euthymic affect and + anxious affect Mood: + anxious mood Thought Process: goal directed thought process Thought Content: reality based without delusions Suicidal Thoughts: denies suicidal thoughts (s/p serious suicide attempt ) and denies suicidal plan Homicidal Thoughts: denies homicidal thoughts Hallucinations: no auditory hallucinations and no visual hallucinations Cognition: recent memory grossly intact, remote memory grossly intact, attention grossly intact and language grossly intact Estimated Intelligence: consistent with education level Insight: + fair insight Judgment: + limited judgement Vital Signs (Past 24 Hours) Last Vital Signs Temp 36.6 C 09/16/22 15:34 Pulse 87 09/16/22 15:42 Resp 18 09/16/22 15:34 BP 120/73 09/16/22 15:34 Pulse Ox 99 09/16/22 15:34 O2 Del Method Room Air 09/16/22 15:34 O2 Flow Rate 3 09/05/22 21:00 Results & Data ([facility]) Current Inpatient Medications Current Inpatient Medications: Current Inpatient Medications Acetaminophen (Acetaminophen 325 Mg Tab) 650 mg PO Q4H PRN PRN Reason: Pain or Fever Stop: 10/05/22 18:59 Last Admin: 09/16/22 05:06 Dose: 650 mg Al Hydrox/Mg Hydrox/Simethicone (Aluminum/Magnesium Susp 30 Ml Udc) 15 ml PO Q4H PRN PRN Reason: Dyspepsia Stop: 10/05/22 18:59 Bacitracin (Bacitracin Oint 15 Gm Tube) 1 appln EXT BID [facility] Stop: 10/14/22 13:54 Last Admin: 09/16/22 09:09 Dose: 1 appln Calcium/Vitamin D (Calcium 600mg + Vit D 400 Iu Tab) 1 tab PO BID [facility] Stop: 10/10/22 20:59 Last Admin: 09/16/22 09:09 Dose: 1 tab Doxycycline Hyclate (Doxycycline Hyclate 100 Mg Cap) 100 mg PO BID@0700,1900 [facility] Stop: 09/18/22 18:59 Last Admin: 09/16/22 06:03 Dose: 100 mg Enoxaparin Sodium (Enoxaparin Inj 40 Mg/0.4 Ml Syr) 40 mg SQ QAM [facility] Stop: 10/10/22 08:59 Last Admin: 09/16/22 09:10 Dose: Not Given Folic Acid (Folic Acid 1 Mg Tab) 1 mg PO QAM [facility] Stop: 10/09/22 08:59 Last Admin: 09/16/22 09:09 Dose: 1 mg Magnesium Hydroxide (Magnesium Hydroxide Susp 30 Ml Udc) 30 ml PO Q12H PRN PRN Reason: Constipation Stop: 10/05/22 18:59 Metoprolol Succinate (Metoprolol Succ 25mg Ext Rel Tab) 12.5 mg PO BID [facility] Stop: 10/06/22 20:59 Last Admin: 09/16/22 09:09 Dose: 12.5 mg Naloxone HCl (Naloxone Hcl 0.4 Mg/1 Ml Vial/Carp) 0.4 mg IV Q15M PRN PRN Reason: somnulenece, hypercarbia, hypo Stop: 10/05/22 22:17 Ondansetron HCl (Ondansetron Inj 2 Mg/Ml 2 Ml Vial) 4 mg IV Q6H PRN PRN Reason: Nausea Stop: 10/05/22 18:59 Polyethylene Glycol (Polyethylene (Miralax) 17 Gm Pack) 17 gm PO DAILY PRN PRN Reason: Constipation Stop: 10/05/22 18:59 Thiamine HCl ([facility] Hcl 100 Mg Tab) [facility] Stop: 10/09/22 08:59 Last Admin: 09/16/22 09:09 Dose: 100 mg
[2022-09-17] MEDS: DOXYCYCLINE HYCLATE 100 MG CAP PO SCH (06:02)
[2022-09-17] MEDS: METOPROLOL SUCC 25MG EXT REL TAB PO SCH (08:00)
[2022-09-17] MEDS: THIAMINE HCL 100 MG TAB PO SCH (08:00)
[2022-09-17] MEDS: FOLIC ACID 1 MG TAB PO SCH (08:00)
[2022-09-17] MEDS: CALCIUM 600MG + VIT D 400 IU TAB PO SCH (08:01)
[2022-09-17] MEDS: BACITRACIN OINT 15 GM TUBE EXT SCH (08:01)
[2022-09-17] MEDS: ENOXAPARIN INJ 40 MG/0.4 ML SYR SQ SCH (08:01)
[2022-09-17 08:18] VITALS: O2SAT 97
[2022-09-17 12:02] VITALS: BP 96/58; PULSE 85; TEMP 98.1
--- NOTE | 2022-09-17 15:25 | Discharge Summary ---
Date of Service September 17, 2022 Admission HPI Per Admitting Provider 71-year-old brought to the [facility] via EMS after she was found down on the floor by a neighbor today. Patient was not returning neighbors call so he went to check on her and she was last known well 2 days ago on Thursday. She was found to be dehydrated with dry mucous membranes, disheveled, incontinent of urine with a pressure ulcer on her sacrum. Patient has been intermittently responsive to verbal stimuli since. The bottle of medication found next to the patient that was empty; prescription for SSRI. Narcan given in ED x1 with some response. Patient did open her eyes voluntarily and respond to simple questions. Over time, she did become more lethargic and a second dose of Narcan was ordered. stated that she told him she was buying narcotics, but he is unsure where she was getting them. She has made comments to him that she does not want to be here anymore. She does care for a cat at home. Patient was given Narcan in the ED without initial response; however patient then started crying. Patient , Demarcus, at bedside and indicated that pt has struggled with severe depression over the past few years and had a voluntary inpatient stay at the [facility] 3-4 years ago. patient lactate 4.8 on admission, procalcitonin 1.77, VBG respiratory acidosis with hypercapnia, Initial Troponin elevated. Do not suspect ACS; will trend accordingly, some ketonuria noted. Pt does not use tobacco, alcohol, or recreational drugs, per . 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 Head CT in ED negative for ICH, SDH, midline shift. Chest x-ray suggestive of aspiration pneumonia; started on Vancomycin and Unasyn in ED. Confirmed code status with ; remain a full code and ok for intubation for suspected airway protection or for hypercapnia; discussed with . Patient will be admitted to the ICU for further evaluation and management. Please see A/P for further details. Admission Exam Per Admitting Provider Neuro: AAOx1 intermittent somnolence, PERRLA HEENT: head normocephalic, (+) dry mucus membranes CV: S1/S2, (-) M/G/R, (-) edema, cap refill < 3 seconds Resp: Lungs CTA in all whaley. On RA. shallow to apneic breaths GI: Abdomen S/NT/ND, Ax4 bowel sounds, (-) CVA tenderness Musculoskeletal: not able to assess due to somnolence Skin: Stage II coccyx pressure ulcer. Psych: unresponsive intermittently Principal Diagnosis Suicidal attempt SSRI overdose A flutter with variable block Discharge Exam General- oriented x 3, not in distress, speaks in sentences with no effort or accessory muscle use Eyes- anicteric Neck- no JVD Lungs- clear breath sounds bilaterally, no rales/wheezes Heart- normal rate, regular rhythm; no murmurs Abdomen- normal bowel sounds, nondistended, soft, nontender Extremities- no pretibial edema, no calf tenderness Neuro- alert, oriented x 3; no gross focal neurologic deficits Skin- warm & dry Discharge Data Allergies Allergy/AdvReac Type Severity Reaction Status Date / Time Quinolones Allergy Severe DIZZY Verified 09/26/21 06:25 ANXIETY TINGLING IN ARMS Consultations 09/05/22 18:58 ED Decision to Admit Stat 09/05/22 21:03 Consult Integrity Engineer Routine 09/06/22 08:00 Consult Psychiatry Routine 09/06/22 11:07 Consult Cardiology Routine 09/11/22 16:57 Consult Podiatry Routine Ordered Studies 09/05/22 17:31 CT head/brain wo con Stat Hospital Course (1) Overdose: (2) Unresponsiveness: (3) Sepsis: (4) Depression: (5) Aspiration pneumonia: Plan Patient is a 71-year-old female with history of depression presented to the ED with unresponsive episode. She had history of severe depression with known suicidal ideation. She was found to have whole bottle of SSRI next to her. In the ED, patient was somnolent. Head CT was negative for any acute abnormality Chest x-ray was suggestive of aspiration pneumonia; placed on Vanco and Unasyn. Patient was admitted to ICU for Narcan infusion for possible opioid overdose. Patient showed signs of improvement and was transferred to telemetry floor. He became alert oriented x3. During the hospitalization, patient had episode of atrial flutter with variable block for which cardiology was consulted. Patient was placed on metoprolol 12.5 mg twice daily. Echocardiogram showed EF of 60 to 65%. Also, podiatry were consulted during the hospitalization due to blisters on patient he will which were aspirated. Psychiatry was consulted. Recommended inpatient psychiatry admission. Reevaluation was done by psychiatry on September 16. Patient denied any suicidal ideation; psychiatry cleared the patient to be discharged home. Patient was prescribed Prozac as per recommendation by psychiatry. Outpatient PCP follow-up was scheduled at discharge. Please note the above document was generated using voice recognition software. It may contain grammatical, syntax or spelling errors. Any formal questions or concerns about the content, text or information contained within the body of this dictation should be directly addressed to the provider for clarification Total Time Total Time Spent Total Time Spent (In Minutes): 45 Total Time Includes: Examination of the Patient, Discharge Planning, Medication Reconciliation, Communication With Other Providers and Other Discharge Plan Discharge Items Patient Disposition: Home - Self-Care Reason For Visit: UNRESPONSIVENESS Discharge Diagnosis: Unresponsive episode Activity: Resume your previous activity Non-emergency contact: Primary Care Provider Call non-emergency contact if: you have any medication questions and your symptoms worsen Follow-up/Referrals: [facility] [Outside] (Referral placed for outpatient case management services. You should get a phone call within 72 hours. ) Abad Thomas MD [Primary Care Provider] - (Date & Time 09/23/2022 10:20 AM Provider Nano Magallon MD Department General Internal Medicine [facility] ) Diet: Regular Addtl Attending Provider Instructions: You were admitted to the hospital due due to unresponsive episode. You are evaluated by Dr. Spears from psychiatry on September 16 who recommended discharging you back home. You are prescribed Prozac 20 mg once daily. The dose should be adjusted by your psychiatry as outpatient. During your hospitalization, you are found to have irregular heart rhythm called atrial flutter for which you are prescribed metoprolol 12.5 mg to be taken twice daily. Please follow-up with your primary care doctor as scheduled. Pending Studies at Discharge: No Stand-Alone Forms: My [employer], Smoking Cessation Medications and DC Order Prescriptions: New metoprolol succinate 25 mg Tablet Extended Release 24 Hr 12.5 mg PO BID Qty: 60 0RF fluoxetine [Prozac] 20 mg capsule 20 mg PO DAILY Qty: 30 0RF Continued cholecalciferol (vitamin D3) [Vitamin D3] 50 mcg (2,000 unit) Tablet 50 mcg PO QAM Rx Instructions: [facility] pharmacist unable to verify Discontinued paroxetine HCl 20 mg tablet 20 mg PO DAILY Rx Instructions: [facility] pharmacist verified calcium 333 mg PO TID Rx Instructions: [facility] pharmacist unable to verify Discharge Orders: Discharge Order (Routine); Ordered 09/17/22 Ordered By: Akira King/Other Patient Handouts: [facility] Admission Data Admit Date/Time: 09/05/22 19:00 Attending Provider: Akira Gill Admit Provider: Lottie Stein Primary Care Provider: Abad Thomas Other Providers: Lottie Stein ; Carlos Christie ; Lexis Russell ; Mariana Lizarraga ; Robb Spears ; Cornelia Feldman ; Tim Bradley ; Virgilio Ferguson ; Camron Talley ; Zeus Deleon ; Robb Holley ; Adelaida Pineda ; Bibi Multani ; Cornelia Linton ; Sohail Garcia ; Melissa Quinatnilla ; Betty Squires ; Brandyn Eden ; Florentin Tse Other Interventions: Discharge Summary Assessment (RN) Last Done: 09/17/22 13:16
== END 2022-09-17 15:54 | disposition home or self-care (01) | DRG 917 ==
LOC: ED 17:24 → SUATTDRO 19:00 → 1E 19:00 → 2S 09-06 18:59 → 2W 09-09 01:40